=== PATIENT | female | born 1950 | race African-American/Black ===

== ENCOUNTER 2017-11-25 05:25 | Inpatient (IN) ==
[2017-11-25 06:38] LABS: Basophils % 0.5 % (0.0-0.8); Eosinophils # 0.2 10*3/uL (0.0-0.87); Eosinophils % 3.7 % (0.00-10.9); Hematocrit 31.4 VOL% (35.7-47.0); Immature Granulocytes % 0.4 %; Immature Granulocytes Absolute 0.02 #; Lymphocytes % 17.1 % (21.3-54.2); Mean Corpuscular HGB Conc 31.8 GM/DL (32-36); Mean Corpuscular Hemoglobin 30 PG (27-34); Mean Corpuscular Volume 93.2 FL (87-102); Mean Platelet Volume 10.4 FL (9.6-12.0); Monocytes # 0.6 10*3/uL (0.11-0.8); Monocytes % 10.9 % (1.7-12.7); Neutrophils # 3.8 10*3/uL (1.4-7.4); Neutrophils % 67.4 % (38.7-73.9); Platelet Count 167 T/CUMM (130-400); Red Blood Count 3.37 MC/CUMM (3.8-5.5); Red Cell Distribution Width 13.8 % (9.3-17.3); White Blood Count 5.6 T/CUMM (4-12)
[2017-11-25 06:46] LABS: Partial Thromboplastin Time 28.4 SECS (0-40)
[2017-11-25 07:16] LABS: Albumin 3.3 G/DL (3.4-5.0); Bilirubin,Total 0.4 MG/DL (0.2-1.0); Osmolality,Calculated 287.5 MOS/KG (273-304); Potassium 4.2 MMOL/L (3.5-5.1); Total Protein 7.4 G/DL (6.4-8.3)
[2017-11-25] MEDS ORDERED: LEVOFLOXACIN INJ 500 MG in PREMIX 1 EACH IV STA (07:41)
[2017-11-25] MEDS ORDERED: ALBUTEROL 2.5 MG/3 ML NEB RESP TX PRN (09:49)
[2017-11-25] MEDS ORDERED: ONDANSETRON 4 MG/2 ML VIAL IV PRN (09:49)
[2017-11-25] MEDS: ALBUTEROL/IPRATROPIUM 3 ML NEB RESP TX SCH ×4 (11:48→23:27)
[2017-11-25] MEDS: PANTOPRAZOLE 40 MG TABLET PO SCH (15:40)
[2017-11-25] MEDS: ACETAMINOPHEN 325 MG TABLET PO PRN (15:44)
[2017-11-25] MEDS ORDERED: PROMETHAZINE 25 MG TABLET PO PRN (16:25)
[2017-11-25] MEDS ORDERED: LOPERAMIDE 2 MG CAPSULE PO PRN (16:25)
[2017-11-25] MEDS: CINACALCET 30 MG TABLET PO SCH (18:19)
[2017-11-25] MEDS: CALCIUM ACETATE 667 MG CAPSULE PO SCH (18:19)
[2017-11-25] MEDS: GABAPENTIN 100 MG CAPSULE PO SCH (18:20)
[2017-11-25] MEDS: METOPROLOL TARTRATE 25 MG TABLET PO SCH (20:28)
[2017-11-25] MEDS: BRIMONIDINE 0.2% OPH SOLN 5 ML BOTTLE BOTH EYES SCH (20:29)
[2017-11-26] MEDS: ALBUTEROL/IPRATROPIUM 3 ML NEB RESP TX SCH ×5 (02:38→19:01)
[2017-11-26] MEDS: traMADol 50 MG TABLET PO PRN ×2 (05:17→14:31)
[2017-11-26] MEDS ORDERED: VIRT PO SCH (09:00)
[2017-11-26] MEDS ORDERED: NON-FORMULARY MEDICATION (Omeprazole [Omeprazole] 20 MG) PO SCH (09:00)
[2017-11-26] MEDS ORDERED: ERGOCALCIFEROL 50,000 UNIT CAPSULE PO SCH (09:00)
[2017-11-26] MEDS: CALCIUM ACETATE 667 MG CAPSULE PO SCH ×3 (11:08→17:05)
[2017-11-26] MEDS: CEFTAROLINE 200 MG in SODIUM CHLORIDE 0.9% 100 ML IV SCH ×2 (12:37→23:11)
[2017-11-26] MEDS: METOPROLOL TARTRATE 25 MG TABLET PO SCH ×2 (12:39→21:01)
[2017-11-26] MEDS: BRIMONIDINE 0.2% OPH SOLN 5 ML BOTTLE BOTH EYES SCH ×2 (12:41→21:01)
[2017-11-26] MEDS: PANTOPRAZOLE 40 MG TABLET PO SCH (12:42)
[2017-11-26] MEDS: GABAPENTIN 100 MG CAPSULE PO SCH ×2 (12:42→19:21)
[2017-11-26] MEDS: HYDROXYCHLOROQUINE 200 MG TABLET PO SCH (12:42)
[2017-11-26 14:31] LABS: Basophils % 0.6 % (0.0-0.8); Blood Urea Nitrogen 16 MG/DL (7-18); Eosinophils # 0.1 10*3/uL (0.0-0.87); Eosinophils % 2.1 % (0.00-10.9); Glucose 105 MG/DL (74-106); Hematocrit 27.6 VOL% (35.7-47.0); Hemoglobin 8.6 GM/DL (12.0-16.0); Immature Granulocytes % 0.4 %; Immature Granulocytes Absolute 0.02 #; Lymphocytes # 0.4 10*3/uL (1.4-4.0); Lymphocytes % 9.1 % (21.3-54.2); Mean Corpuscular HGB Conc 31.2 GM/DL (32-36); Mean Corpuscular Hemoglobin 31 PG (27-34); Mean Corpuscular Volume 97.9 FL (87-102); Mean Platelet Volume 10.5 FL (9.6-12.0); Monocytes # 0.4 10*3/uL (0.11-0.8); Monocytes % 9.1 % (1.7-12.7); Neutrophils # 3.7 10*3/uL (1.4-7.4); Neutrophils % 78.7 % (38.7-73.9); Osmolality,Calculated 288.7 MOS/KG (273-304); Platelet Count 127 T/CUMM (130-400); Red Blood Count 2.82 MC/CUMM (3.8-5.5); Red Cell Distribution Width 13.6 % (9.3-17.3); Sodium 145 MMOL/L (136-145); White Blood Count 4.7 T/CUMM (4-12)
[2017-11-26] MEDS ORDERED: GLUCAGON 1 MG VIAL IM PRN (14:49)
[2017-11-26] MEDS ORDERED: DEXTROSE 50% 25 GM/50 ML VIAL IV PRN (14:49)
[2017-11-26 14:50] LABS: Potassium 2.7 MMOL/L (3.5-5.1)
[2017-11-26 14:57] LABS: Calcium < 5.0 MG/DL (8.5-10.1)
[2017-11-26] MEDS: CINACALCET 30 MG TABLET PO SCH (17:05)
[2017-11-26] MEDS: INSULIN LISPRO 100 UNIT/ML SUBCUT SCH ×2 (17:06→21:01)
[2017-11-27] MEDS: ALBUTEROL/IPRATROPIUM 3 ML NEB RESP TX SCH ×7 (00:56→23:23)
[2017-11-27] MEDS: traMADol 50 MG TABLET PO PRN ×2 (05:18→13:36)
[2017-11-27] MEDS: INSULIN LISPRO 100 UNIT/ML SUBCUT SCH ×4 (08:12→20:38)
[2017-11-27 10:11] LABS: Basophils % 0.2 % (0.0-0.8); Eosinophils # 0.1 10*3/uL (0.0-0.87); Eosinophils % 2.7 % (0.00-10.9); Hematocrit 30.3 VOL% (35.7-47.0); Hemoglobin 9.5 GM/DL (12.0-16.0); Immature Granulocytes % 0.6 %; Immature Granulocytes Absolute 0.03 #; Lymphocytes # 0.6 10*3/uL (1.4-4.0); Lymphocytes % 12.3 % (21.3-54.2); Mean Corpuscular HGB Conc 31.4 GM/DL (32-36); Mean Corpuscular Hemoglobin 30 PG (27-34); Mean Platelet Volume 10.4 FL (9.6-12.0); Monocytes # 0.5 10*3/uL (0.11-0.8); Monocytes % 11.1 % (1.7-12.7); Neutrophils # 3.6 10*3/uL (1.4-7.4); Neutrophils % 73.1 % (38.7-73.9); Platelet Count 137 T/CUMM (130-400); Red Blood Count 3.19 MC/CUMM (3.8-5.5); Red Cell Distribution Width 13.7 % (9.3-17.3); White Blood Count 4.9 T/CUMM (4-12)
[2017-11-27 10:35] LABS: Calcium 7.7 MG/DL (8.5-10.1); Osmolality,Calculated 277.2 MOS/KG (273-304); Potassium 4.1 MMOL/L (3.5-5.1)
[2017-11-27] MEDS: CALCIUM ACETATE 667 MG CAPSULE PO SCH ×3 (12:02→17:04)
[2017-11-27] MEDS: BRIMONIDINE 0.2% OPH SOLN 5 ML BOTTLE BOTH EYES SCH ×2 (13:34→20:38)
[2017-11-27] MEDS: GABAPENTIN 100 MG CAPSULE PO SCH ×2 (13:35→18:27)
[2017-11-27] MEDS: METOPROLOL TARTRATE 25 MG TABLET PO SCH ×2 (13:35→20:38)
[2017-11-27] MEDS: PANTOPRAZOLE 40 MG TABLET PO SCH (13:35)
[2017-11-27] MEDS: HYDROXYCHLOROQUINE 200 MG TABLET PO SCH (13:35)
[2017-11-27] MEDS: LEVOFLOXACIN INJ 250 MG in PREMIX 1 EACH IV SCH (14:46)
[2017-11-27] MEDS: CEFTAROLINE 200 MG in SODIUM CHLORIDE 0.9% 100 ML IV SCH ×2 (15:34→23:42)
[2017-11-27] MEDS: CINACALCET 30 MG TABLET PO SCH (17:05)
[2017-11-28] MEDS: ALBUTEROL/IPRATROPIUM 3 ML NEB RESP TX SCH ×6 (03:05→23:22)
[2017-11-28 06:33] LABS: Basophils % 0.2 % (0.0-0.8); Eosinophils # 0.2 10*3/uL (0.0-0.87); Eosinophils % 3.3 % (0.00-10.9); Hematocrit 29.9 VOL% (35.7-47.0); Hemoglobin 9.6 GM/DL (12.0-16.0); Immature Granulocytes % 0.4 %; Immature Granulocytes Absolute 0.02 #; Lymphocytes # 0.7 10*3/uL (1.4-4.0); Lymphocytes % 15.9 % (21.3-54.2); Mean Corpuscular HGB Conc 32.1 GM/DL (32-36); Mean Corpuscular Hemoglobin 30 PG (27-34); Mean Corpuscular Volume 93.1 FL (87-102); Mean Platelet Volume 10.6 FL (9.6-12.0); Monocytes # 0.8 10*3/uL (0.11-0.8); Monocytes % 16.3 % (1.7-12.7); Neutrophils # 2.9 10*3/uL (1.4-7.4); Neutrophils % 63.9 % (38.7-73.9); Platelet Count 134 T/CUMM (130-400); Red Blood Count 3.21 MC/CUMM (3.8-5.5); Red Cell Distribution Width 13.7 % (9.3-17.3); White Blood Count 4.6 T/CUMM (4-12)
[2017-11-28 07:00] LABS: Calcium 7.8 MG/DL (8.5-10.1); Eosinophils 7 % (0-10); Giant Platelets Few; Hypochromasia 2+; Lymphocytes 11 % (20-55); Osmolality,Calculated 276.1 MOS/KG (273-304); Ovalocytes Slight; Platelet Estimate Normal; Potassium 4.7 MMOL/L (3.5-5.1); Segmented Neutrophils 68 % (50-85); Total Cells Counted 100
[2017-11-28] MEDS: INSULIN LISPRO 100 UNIT/ML SUBCUT SCH ×4 (07:18→20:50)
[2017-11-28] MEDS: CALCIUM ACETATE 667 MG CAPSULE PO SCH ×3 (08:18→16:32)
[2017-11-28] MEDS: BRIMONIDINE 0.2% OPH SOLN 5 ML BOTTLE BOTH EYES SCH ×2 (08:18→20:53)
[2017-11-28] MEDS: LEVOFLOXACIN INJ 250 MG in PREMIX 1 EACH IV SCH (08:18)
[2017-11-28] MEDS: GABAPENTIN 100 MG CAPSULE PO SCH ×2 (08:18→18:05)
[2017-11-28] MEDS: PANTOPRAZOLE 40 MG TABLET PO SCH (08:18)
[2017-11-28] MEDS: METOPROLOL TARTRATE 25 MG TABLET PO SCH ×2 (08:18→20:49)
[2017-11-28] MEDS: HYDROXYCHLOROQUINE 200 MG TABLET PO SCH (08:18)
[2017-11-28] MEDS: traMADol 50 MG TABLET PO PRN (11:43)
[2017-11-28] MEDS: CEFTAROLINE 200 MG in SODIUM CHLORIDE 0.9% 100 ML IV SCH ×2 (12:44→23:36)
[2017-11-28] MEDS ORDERED: IBUPROFEN 400 MG TABLET PO PRN (15:15)
[2017-11-28] MEDS: CINACALCET 30 MG TABLET PO SCH (16:32)
[2017-11-29] MEDS: ALBUTEROL/IPRATROPIUM 3 ML NEB RESP TX SCH ×6 (03:54→23:12)
[2017-11-29 08:12] LABS: Basophils % 0.4 % (0.0-0.8); Eosinophils # 0.2 10*3/uL (0.0-0.87); Eosinophils % 3.9 % (0.00-10.9); Hemoglobin 9.3 GM/DL (12.0-16.0); Immature Granulocytes % 0.2 %; Immature Granulocytes Absolute 0.01 #; Lymphocytes # 0.6 10*3/uL (1.4-4.0); Lymphocytes % 12.5 % (21.3-54.2); Mean Corpuscular HGB Conc 32.1 GM/DL (32-36); Mean Corpuscular Hemoglobin 30 PG (27-34); Mean Corpuscular Volume 92.7 FL (87-102); Mean Platelet Volume 10.3 FL (9.6-12.0); Monocytes # 0.4 10*3/uL (0.11-0.8); Monocytes % 9.3 % (1.7-12.7); Neutrophils # 3.4 10*3/uL (1.4-7.4); Neutrophils % 73.7 % (38.7-73.9); Platelet Count 141 T/CUMM (130-400); Red Blood Count 3.13 MC/CUMM (3.8-5.5); Red Cell Distribution Width 13.3 % (9.3-17.3); White Blood Count 4.6 T/CUMM (4-12)
[2017-11-29 08:48] LABS: Calcium 8.2 MG/DL (8.5-10.1); Potassium 4.7 MMOL/L (3.5-5.1)
[2017-11-29] MEDS: INSULIN LISPRO 100 UNIT/ML SUBCUT SCH ×4 (12:27→23:21)
[2017-11-29] MEDS: CALCIUM ACETATE 667 MG CAPSULE PO SCH ×3 (12:28→18:02)
[2017-11-29] MEDS: BRIMONIDINE 0.2% OPH SOLN 5 ML BOTTLE BOTH EYES SCH ×2 (12:40→20:46)
[2017-11-29] MEDS: PANTOPRAZOLE 40 MG TABLET PO SCH (12:41)
[2017-11-29] MEDS: HYDROXYCHLOROQUINE 200 MG TABLET PO SCH (12:41)
[2017-11-29] MEDS: METOPROLOL TARTRATE 25 MG TABLET PO SCH ×2 (12:41→20:46)
[2017-11-29] MEDS: GABAPENTIN 100 MG CAPSULE PO SCH ×2 (12:42→18:01)
[2017-11-29] MEDS: traMADol 50 MG TABLET PO PRN ×2 (12:42→20:45)
[2017-11-29] MEDS: LEVOFLOXACIN INJ 250 MG in PREMIX 1 EACH IV SCH (12:43)
[2017-11-29] MEDS: CEFTAROLINE 200 MG in SODIUM CHLORIDE 0.9% 100 ML IV SCH ×2 (14:04→23:21)
[2017-11-29] MEDS: CINACALCET 30 MG TABLET PO SCH (18:01)
[2017-11-29] MEDS: ACETAMINOPHEN 325 MG TABLET PO PRN (18:02)
[2017-11-30] MEDS: ALBUTEROL/IPRATROPIUM 3 ML NEB RESP TX SCH ×2 (03:29→09:21)
[2017-11-30 04:14] LABS: Basophils % 0.4 % (0.0-0.8); Eosinophils # 0.3 10*3/uL (0.0-0.87); Hemoglobin 9.6 GM/DL (12.0-16.0); Immature Granulocytes % 0.4 %; Immature Granulocytes Absolute 0.02 #; Lymphocytes # 0.8 10*3/uL (1.4-4.0); Lymphocytes % 14.7 % (21.3-54.2); Mean Corpuscular Hemoglobin 30 PG (27-34); Mean Corpuscular Volume 93.5 FL (87-102); Mean Platelet Volume 11.2 FL (9.6-12.0); Monocytes # 0.8 10*3/uL (0.11-0.8); Monocytes % 14.7 % (1.7-12.7); Neutrophils # 3.4 10*3/uL (1.4-7.4); Neutrophils % 64.8 % (38.7-73.9); Platelet Count 147 T/CUMM (130-400); Red Blood Count 3.21 MC/CUMM (3.8-5.5); Red Cell Distribution Width 13.4 % (9.3-17.3); White Blood Count 5.2 T/CUMM (4-12)
[2017-11-30 04:31] LABS: Calcium 8.1 MG/DL (8.5-10.1); Osmolality,Calculated 284.8 MOS/KG (273-304); Potassium 5.2 MMOL/L (3.5-5.1)
[2017-11-30] MEDS: INSULIN LISPRO 100 UNIT/ML SUBCUT SCH ×2 (07:56→12:49)
[2017-11-30] MEDS ORDERED: SODIUM POLYSTYRENE SULFATE 15 GM/60 ML BOTTLE PO STA (09:09)
[2017-11-30] MEDS ORDERED: SODIUM POLYSTYRENE SULFATE 15 GM/60 ML BOTTLE PO ONE (09:10)
[2017-11-30] MEDS: BRIMONIDINE 0.2% OPH SOLN 5 ML BOTTLE BOTH EYES SCH (09:11)
[2017-11-30] MEDS: PANTOPRAZOLE 40 MG TABLET PO SCH (09:11)
[2017-11-30] MEDS: CALCIUM ACETATE 667 MG CAPSULE PO SCH ×2 (09:11→13:56)
[2017-11-30] MEDS: HYDROXYCHLOROQUINE 200 MG TABLET PO SCH (09:12)
[2017-11-30] MEDS: GABAPENTIN 100 MG CAPSULE PO SCH (09:12)
[2017-11-30] MEDS: METOPROLOL TARTRATE 25 MG TABLET PO SCH (09:16)
[2017-11-30] MEDS ORDERED: MINOCYCLINE 100 MG CAPSULE PO SCH (09:30)
[2017-11-30 11:50] VITALS: BP 103/48
[2017-11-30] MEDS: LEVOFLOXACIN INJ 250 MG in PREMIX 1 EACH IV SCH (12:48)
[2017-11-30] MEDS: traMADol 50 MG TABLET PO PRN (14:00)
== END 2017-11-30 14:59 | disposition home or self-care (01) | DRG 193 ==
LOC: N.ED 05:25 → N.EDINP 07:59 → SUATTDRO 07:59 → N.EDINP 09:25 → N.3E 09:52
PROVIDERS: ADMIT Family Medicine; ATTEND Internal Medicine Infectious Disease

== ENCOUNTER 2017-12-15 18:04 | Inpatient (IN) ==
[2017-12-15] MEDS ORDERED: ASPIRIN 325 MG TABLET PO STA (18:32)
[2017-12-15] MEDS ORDERED: NITROGLYCERIN 2% OINT 1 INCH/GM PACK TOP STA (18:32)
[2017-12-15] MEDS ORDERED: NITROGLYCERIN 2% OINT 1 INCH/GM PACK TOP ONE (19:41)
[2017-12-15] MEDS ORDERED: ASPIRIN 325 MG TABLET ONE (19:41)
[2017-12-15 20:46] LABS: Basophils % 0.3 % (0.0-0.8); Eosinophils # 0.2 10*3/uL (0.0-0.87); Hematocrit 27.2 VOL% (35.7-47.0); Hemoglobin 8.8 GM/DL (12.0-16.0); Immature Granulocytes % 0.6 %; Immature Granulocytes Absolute 0.02 #; Lymphocytes % 28.5 % (21.3-54.2); Mean Corpuscular HGB Conc 32.4 GM/DL (32-36); Mean Corpuscular Hemoglobin 30 PG (27-34); Mean Corpuscular Volume 93.2 FL (87-102); Mean Platelet Volume 11.2 FL (9.6-12.0); Monocytes # 0.6 10*3/uL (0.11-0.8); Monocytes % 16.8 % (1.7-12.7); Neutrophils # 1.8 10*3/uL (1.4-7.4); Neutrophils % 48.8 % (38.7-73.9); Platelet Count 124 T/CUMM (130-400); Red Blood Count 2.92 MC/CUMM (3.8-5.5); Red Cell Distribution Width 13.5 % (9.3-17.3); White Blood Count 3.6 T/CUMM (4-12)
[2017-12-15 20:51] LABS: INR 1.1; PT Patient Result 11.4 SECS
[2017-12-15 21:02] LABS: Calcium 8.1 MG/DL (8.5-10.1); Magnesium 2.2 MG/DL (1.8-2.4); Potassium 3.9 MMOL/L (3.5-5.1)
[2017-12-15 21:07] LABS: Apearance,Urine Slightly Hazy (Clear); Bacteria,Urine Occasional /HPF (Few); Bilirubin,Urine Negative (Negative); Blood, Urine Negative (Negative); Glucose,Urine (UA) Negative (Negative); Ketones,Urine Negative (Negative); Nitrite,Urine Negative (Negative); Protein,Urine 100 MG/DL; RBC,Urine 2 /HPF (0-4); Squamous Epithelial Cell,Urine Occasional /HPF (0-10); Urine Color Amber (Yellow); Urine Specific Gravity 1.016 (1.001-1.035); Urine Urobilinogen < 2.0 EU/DL (0.2-1.0); WBC,Urine 4 /HPF (0-6)
[2017-12-15 21:09] LABS: Troponin I Only 0.775 NG/ML (0.00-0.045)
[2017-12-15 21:50] LABS: Band Neutrophils 2 % (0-10); Eosinophils 3 % (0-10); Lymphocytes 29 % (20-55); Platelet Estimate Normal; Segmented Neutrophils 56 % (50-85); Total Cells Counted 100
[2017-12-15] MEDS ORDERED: cloNIDine 0.1 MG TABLET ONE (22:35)
[2017-12-15] MEDS ORDERED: cloNIDine 0.1 MG TABLET PO STA (22:37)
[2017-12-16] MEDS ORDERED: DEXTROSE 50% 25 GM/50 ML VIAL IV PRN (02:21)
[2017-12-16] MEDS ORDERED: GLUCAGON 1 MG VIAL IM PRN (02:21)
[2017-12-16] MEDS ORDERED: NITROGLYCERIN SL 0.4 MG TABLET SL PRN (02:21)
[2017-12-16] MEDS ORDERED: ALBUTEROL/IPRATROPIUM 3 ML NEB RESP TX PRN (02:21)
[2017-12-16] MEDS ORDERED: VANCOMYCIN INJ 500 MG in SODIUM CHLORIDE 0.9% 100 ML IV PRN (02:44)
[2017-12-16] MEDS ORDERED: VANCOMYCIN INJ 2,000 MG in SODIUM CHLORIDE 0.9% 500 ML IV ONE ×2 (03:00→08:00)
[2017-12-16] MEDS: ENOXAPARIN 30 MG/0.3 ML SYRINGE SUBCUT SCH (03:33)
[2017-12-16] MEDS: ALBUTEROL/IPRATROPIUM 3 ML NEB RESP TX SCH ×4 (03:38→20:26)
[2017-12-16] MEDS: LEVOFLOXACIN INJ 500 MG in PREMIX 1 EACH IV SCH (03:39)
[2017-12-16] MEDS: METOPROLOL TARTRATE 25 MG TABLET PO SCH ×3 (05:22→21:35)
[2017-12-16] MEDS ORDERED: OSELTAMIVIR 30 MG CAPSULE PO SCH (09:00)
[2017-12-16] MEDS: GABAPENTIN 100 MG CAPSULE PO SCH ×2 (09:48→21:35)
[2017-12-16] MEDS: HYDROXYCHLOROQUINE 200 MG TABLET PO SCH (09:48)
[2017-12-16] MEDS: DOCUSATE SODIUM 100 MG CAPSULE PO SCH ×2 (09:48→21:35)
[2017-12-16] MEDS: guaiFENesin/DM ER 600-30 MG TABLET PO PRN (09:48)
[2017-12-16] MEDS: CLOPIDOGREL 75 MG TABLET PO SCH (09:48)
[2017-12-16] MEDS: ASPIRIN EC 81 MG TABLET PO SCH (09:48)
[2017-12-16] MEDS: PANTOPRAZOLE 40 MG TABLET PO SCH (09:54)
[2017-12-16] MEDS: CALCIUM ACETATE 667 MG CAPSULE PO SCH ×3 (09:54→16:50)
[2017-12-16] MEDS: BRIMONIDINE 0.2% OPH SOLN 5 ML BOTTLE BOTH EYES SCH (09:55)
[2017-12-16] MEDS: INSULIN REGULAR 100 UNIT/ML SUBCUT SCH ×4 (11:46→21:36)
[2017-12-16] MEDS: cloNIDine 0.1 MG TABLET PO PRN ×2 (15:20→16:50)
[2017-12-17] MEDS: ALBUTEROL/IPRATROPIUM 3 ML NEB RESP TX SCH ×4 (00:47→21:15)
[2017-12-17] MEDS: BRIMONIDINE 0.2% OPH SOLN 5 ML BOTTLE BOTH EYES SCH ×3 (03:27→20:56)
[2017-12-17 06:33] LABS: Basophils % 0.4 % (0.0-0.8); Eosinophils # 0.1 10*3/uL (0.0-0.87); Eosinophils % 4.1 % (0.00-10.9); Hemoglobin 8.4 GM/DL (12.0-16.0); Immature Granulocytes % 0.4 %; Immature Granulocytes Absolute 0.01 #; Lymphocytes # 0.6 10*3/uL (1.4-4.0); Lymphocytes % 20.5 % (21.3-54.2); Mean Corpuscular HGB Conc 32.3 GM/DL (32-36); Mean Corpuscular Hemoglobin 29 PG (27-34); Mean Corpuscular Volume 90.3 FL (87-102); Mean Platelet Volume 11.6 FL (9.6-12.0); Monocytes # 0.4 10*3/uL (0.11-0.8); Monocytes % 15.7 % (1.7-12.7); Neutrophils # 1.6 10*3/uL (1.4-7.4); Neutrophils % 58.9 % (38.7-73.9); Platelet Count 96 T/CUMM (130-400); Red Blood Count 2.88 MC/CUMM (3.8-5.5); Red Cell Distribution Width 13.7 % (9.3-17.3); White Blood Count 2.7 T/CUMM (4-12)
[2017-12-17 07:08] LABS: Giant Platelets Few; Hypochromasia 1+; Lymphocytes 17 % (20-55); Ovalocytes Slight; Platelet Estimate Decreased; Segmented Neutrophils 69 % (50-85); Total Cells Counted 100
[2017-12-17 07:21] LABS: Albumin 2.8 G/DL (3.4-5.0); Bilirubin,Total 0.6 MG/DL (0.2-1.0); Calcium 8.2 MG/DL (8.5-10.1); Potassium 4.2 MMOL/L (3.5-5.1); Total Protein 6.8 G/DL (6.4-8.3)
[2017-12-17] MEDS: INSULIN REGULAR 100 UNIT/ML SUBCUT SCH ×4 (09:28→21:03)
[2017-12-17] MEDS: CALCIUM ACETATE 667 MG CAPSULE PO SCH ×3 (09:36→17:33)
[2017-12-17] MEDS: CLOPIDOGREL 75 MG TABLET PO SCH (09:36)
[2017-12-17] MEDS: HYDROXYCHLOROQUINE 200 MG TABLET PO SCH (09:36)
[2017-12-17] MEDS: ASPIRIN EC 81 MG TABLET PO SCH (09:36)
[2017-12-17] MEDS: PANTOPRAZOLE 40 MG TABLET PO SCH (09:37)
[2017-12-17] MEDS: DOCUSATE SODIUM 100 MG CAPSULE PO SCH ×2 (09:37→20:56)
[2017-12-17] MEDS: ENOXAPARIN 30 MG/0.3 ML SYRINGE SUBCUT SCH (09:37)
[2017-12-17] MEDS: METOPROLOL TARTRATE 25 MG TABLET PO SCH ×2 (09:37→20:57)
[2017-12-17] MEDS: GABAPENTIN 100 MG CAPSULE PO SCH ×2 (09:49→20:56)
[2017-12-17] MEDS ORDERED: ALUM/MAG/SIMETH/LIDO VISC 1:1 30 ML BOTTLE PO ONE (21:00)
[2017-12-17] MEDS: ONDANSETRON 4 MG/2 ML VIAL IV PRN (21:37)
[2017-12-18] MEDS: ALBUTEROL/IPRATROPIUM 3 ML NEB RESP TX SCH ×3 (01:30→19:25)
[2017-12-18] MEDS: LEVOFLOXACIN INJ 500 MG in PREMIX 1 EACH IV SCH (02:09)
[2017-12-18] MEDS: BRIMONIDINE 0.2% OPH SOLN 5 ML BOTTLE BOTH EYES SCH ×2 (08:39→21:51)
[2017-12-18] MEDS: HYDROXYCHLOROQUINE 200 MG TABLET PO SCH (08:40)
[2017-12-18] MEDS: CALCIUM ACETATE 667 MG CAPSULE PO SCH ×3 (08:40→17:26)
[2017-12-18] MEDS: CLOPIDOGREL 75 MG TABLET PO SCH (08:41)
[2017-12-18] MEDS: PANTOPRAZOLE 40 MG TABLET PO SCH (08:41)
[2017-12-18] MEDS: GABAPENTIN 100 MG CAPSULE PO SCH ×2 (08:41→21:50)
[2017-12-18] MEDS: ASPIRIN EC 81 MG TABLET PO SCH (08:41)
[2017-12-18] MEDS: DOCUSATE SODIUM 100 MG CAPSULE PO SCH ×2 (08:43→21:54)
[2017-12-18] MEDS: INSULIN REGULAR 100 UNIT/ML SUBCUT SCH ×4 (08:43→21:54)
[2017-12-18] MEDS: ENOXAPARIN 30 MG/0.3 ML SYRINGE SUBCUT SCH (08:44)
[2017-12-18] MEDS: METOPROLOL TARTRATE 25 MG TABLET PO SCH ×3 (08:44→21:50)
[2017-12-18 09:23] LABS: Basophils % 0.3 % (0.0-0.8); Eosinophils # 0.1 10*3/uL (0.0-0.87); Eosinophils % 3.4 % (0.00-10.9); Hematocrit 24.4 VOL% (35.7-47.0); Hemoglobin 7.7 GM/DL (12.0-16.0); Immature Granulocytes % 0.3 %; Immature Granulocytes Absolute 0.01 #; Lymphocytes # 0.6 10*3/uL (1.4-4.0); Lymphocytes % 14.6 % (21.3-54.2); Mean Corpuscular HGB Conc 31.6 GM/DL (32-36); Mean Corpuscular Hemoglobin 30 PG (27-34); Mean Corpuscular Volume 93.8 FL (87-102); Mean Platelet Volume 11.1 FL (9.6-12.0); Monocytes # 0.5 10*3/uL (0.11-0.8); Monocytes % 12.3 % (1.7-12.7); Neutrophils # 2.7 10*3/uL (1.4-7.4); Neutrophils % 69.1 % (38.7-73.9); Red Cell Distribution Width 13.8 % (9.3-17.3); White Blood Count 3.8 T/CUMM (4-12)
[2017-12-18 09:25] LABS: Platelet Count 91 T/CUMM (130-400)
[2017-12-18 09:41] LABS: Hypochromasia 1+; Microcytosis 1+; Ovalocytes Slight; Platelet Estimate Decreased
[2017-12-18 10:07] LABS: Calcium 7.8 MG/DL (8.5-10.1); Magnesium 1.8 MG/DL (1.8-2.4); Osmolality,Calculated 280.2 MOS/KG (273-304); Potassium 4.7 MMOL/L (3.5-5.1)
[2017-12-18 11:13] LABS: Hepatitis B Surface Ag Quant < 0.10 Index; Hepatitis B Surface Ag Result Negative (Negative)
[2017-12-18] MEDS: FLUTICASONE 50 MCG NASAL SPRAY 16 GM BOTTLE BOTH NARES SCH ×2 (17:26→21:50)
[2017-12-18] MEDS: LORATADINE 10 MG TABLET PO SCH (17:26)
[2017-12-18] MEDS ORDERED: VANCOMYCIN INJ 500 MG in SODIUM CHLORIDE 0.9% 100 ML IV ONE (18:00)
[2017-12-18] MEDS: MORPHINE 2 MG/1 ML SYRINGE IV PRN (20:21)
[2017-12-19] MEDS: ALBUTEROL/IPRATROPIUM 3 ML NEB RESP TX SCH ×6 (00:22→20:09)
[2017-12-19] MEDS: guaiFENesin/DM ER 600-30 MG TABLET PO PRN ×3 (04:49→21:00)
[2017-12-19] MEDS: INSULIN REGULAR 100 UNIT/ML SUBCUT SCH ×4 (09:08→21:01)
[2017-12-19] MEDS: FLUTICASONE 50 MCG NASAL SPRAY 16 GM BOTTLE BOTH NARES SCH ×2 (09:38→21:00)
[2017-12-19] MEDS: CALCIUM ACETATE 667 MG CAPSULE PO SCH ×3 (09:38→16:26)
[2017-12-19] MEDS: METOPROLOL TARTRATE 25 MG TABLET PO SCH ×2 (09:39→21:00)
[2017-12-19] MEDS: PANTOPRAZOLE 40 MG TABLET PO SCH (09:39)
[2017-12-19] MEDS: LORATADINE 10 MG TABLET PO SCH (09:39)
[2017-12-19] MEDS: GABAPENTIN 100 MG CAPSULE PO SCH ×2 (09:39→21:00)
[2017-12-19] MEDS: CLOPIDOGREL 75 MG TABLET PO SCH (09:39)
[2017-12-19] MEDS: ASPIRIN EC 81 MG TABLET PO SCH (09:39)
[2017-12-19] MEDS: BRIMONIDINE 0.2% OPH SOLN 5 ML BOTTLE BOTH EYES SCH ×2 (09:39→21:00)
[2017-12-19] MEDS: DOCUSATE SODIUM 100 MG CAPSULE PO SCH ×2 (09:39→21:00)
[2017-12-19] MEDS: HYDROXYCHLOROQUINE 200 MG TABLET PO SCH (09:39)
[2017-12-19] MEDS: ENOXAPARIN 30 MG/0.3 ML SYRINGE SUBCUT SCH (09:40)
[2017-12-19 12:00] LABS: Basophils % 0.2 % (0.0-0.8); Eosinophils # 0.2 10*3/uL (0.0-0.87); Hematocrit 26.7 VOL% (35.7-47.0); Hemoglobin 8.3 GM/DL (12.0-16.0); Immature Granulocytes % 0.5 %; Immature Granulocytes Absolute 0.02 #; Lymphocytes # 0.5 10*3/uL (1.4-4.0); Lymphocytes % 12.5 % (21.3-54.2); Mean Corpuscular HGB Conc 31.1 GM/DL (32-36); Mean Corpuscular Hemoglobin 29 PG (27-34); Mean Corpuscular Volume 93.4 FL (87-102); Mean Platelet Volume 11.4 FL (9.6-12.0); Monocytes # 0.6 10*3/uL (0.11-0.8); Monocytes % 13.2 % (1.7-12.7); Neutrophils # 2.9 10*3/uL (1.4-7.4); Neutrophils % 68.6 % (38.7-73.9); Platelet Count 107 T/CUMM (130-400); Red Blood Count 2.86 MC/CUMM (3.8-5.5); Red Cell Distribution Width 13.8 % (9.3-17.3); White Blood Count 4.2 T/CUMM (4-12)
[2017-12-20] MEDS ORDERED: ALUM/MAG/SIMETH/LIDO VISC 1:1 30 ML BOTTLE PO ONE (00:11)
[2017-12-20] MEDS ORDERED: hydrALAZINE 20 MG/1 ML VIAL IV PRN (00:12)
[2017-12-20] MEDS: ALBUTEROL/IPRATROPIUM 3 ML NEB RESP TX SCH ×5 (00:26→16:07)
[2017-12-20] MEDS: MORPHINE 2 MG/1 ML SYRINGE IV PRN (02:11)
[2017-12-20 08:55] LABS: Basophils % 0.2 % (0.0-0.8); Eosinophils # 0.2 10*3/uL (0.0-0.87); Eosinophils % 3.2 % (0.00-10.9); Hematocrit 25.7 VOL% (35.7-47.0); Hemoglobin 8.4 GM/DL (12.0-16.0); Immature Granulocytes % 0.6 %; Immature Granulocytes Absolute 0.03 #; Lymphocytes # 0.7 10*3/uL (1.4-4.0); Lymphocytes % 13.3 % (21.3-54.2); Mean Corpuscular HGB Conc 32.7 GM/DL (32-36); Mean Corpuscular Hemoglobin 29 PG (27-34); Mean Corpuscular Volume 89.9 FL (87-102); Mean Platelet Volume 11.2 FL (9.6-12.0); Monocytes # 0.6 10*3/uL (0.11-0.8); Monocytes % 11.7 % (1.7-12.7); Neutrophils # 3.8 10*3/uL (1.4-7.4); Platelet Count 120 T/CUMM (130-400); Red Blood Count 2.86 MC/CUMM (3.8-5.5); Red Cell Distribution Width 13.6 % (9.3-17.3); White Blood Count 5.3 T/CUMM (4-12)
[2017-12-20] MEDS: DOCUSATE SODIUM 100 MG CAPSULE PO SCH ×2 (09:28→21:08)
[2017-12-20] MEDS: HYDROXYCHLOROQUINE 200 MG TABLET PO SCH (09:28)
[2017-12-20] MEDS: PANTOPRAZOLE 40 MG TABLET PO SCH (09:29)
[2017-12-20] MEDS: GABAPENTIN 100 MG CAPSULE PO SCH ×2 (09:29→21:10)
[2017-12-20] MEDS: CLOPIDOGREL 75 MG TABLET PO SCH (09:29)
[2017-12-20] MEDS: LORATADINE 10 MG TABLET PO SCH (09:29)
[2017-12-20] MEDS: ASPIRIN EC 81 MG TABLET PO SCH (09:29)
[2017-12-20] MEDS: INSULIN REGULAR 100 UNIT/ML SUBCUT SCH ×4 (09:30→21:11)
[2017-12-20 09:31] LABS: Calcium 8.2 MG/DL (8.5-10.1); Osmolality,Calculated 275.1 MOS/KG (273-304); Potassium 4.2 MMOL/L (3.5-5.1)
[2017-12-20] MEDS: cloNIDine 0.1 MG TABLET PO PRN (10:30)
[2017-12-20] MEDS: ONDANSETRON 4 MG/2 ML VIAL IV PRN (10:30)
[2017-12-20] MEDS: METOPROLOL TARTRATE 25 MG TABLET PO SCH ×2 (10:30→21:10)
[2017-12-20] MEDS: BRIMONIDINE 0.2% OPH SOLN 5 ML BOTTLE BOTH EYES SCH ×2 (10:39→21:11)
[2017-12-20] MEDS: CALCIUM ACETATE 667 MG CAPSULE PO SCH ×3 (10:39→16:43)
[2017-12-20] MEDS: FLUTICASONE 50 MCG NASAL SPRAY 16 GM BOTTLE BOTH NARES SCH ×3 (10:39→21:11)
[2017-12-20] MEDS: ENOXAPARIN 30 MG/0.3 ML SYRINGE SUBCUT SCH (10:39)
[2017-12-20] MEDS: LEVOFLOXACIN INJ 500 MG in PREMIX 1 EACH IV SCH (11:58)
[2017-12-20] MEDS: LEVOFLOXACIN 750 MG TABLET PO SCH (13:00)
[2017-12-20] MEDS: guaiFENesin/DM ER 600-30 MG TABLET PO PRN ×2 (13:00→21:09)
[2017-12-20] MEDS: traMADol 50 MG TABLET PO PRN (13:04)
[2017-12-20] MEDS: CINACALCET 30 MG TABLET PO SCH (16:43)
[2017-12-21] MEDS: ALBUTEROL/IPRATROPIUM 3 ML NEB RESP TX SCH ×4 (07:04→23:33)
[2017-12-21] MEDS: INSULIN REGULAR 100 UNIT/ML SUBCUT SCH ×4 (07:38→20:11)
[2017-12-21] MEDS: FLUTICASONE 50 MCG NASAL SPRAY 16 GM BOTTLE BOTH NARES SCH ×2 (08:53→21:52)
[2017-12-21] MEDS: CALCIUM ACETATE 667 MG CAPSULE PO SCH ×3 (08:53→16:35)
[2017-12-21] MEDS: ASPIRIN EC 81 MG TABLET PO SCH (08:53)
[2017-12-21] MEDS: BRIMONIDINE 0.2% OPH SOLN 5 ML BOTTLE BOTH EYES SCH ×2 (08:53→21:52)
[2017-12-21] MEDS: CLOPIDOGREL 75 MG TABLET PO SCH (08:53)
[2017-12-21] MEDS: METOPROLOL TARTRATE 25 MG TABLET PO SCH ×2 (08:53→21:53)
[2017-12-21] MEDS: LORATADINE 10 MG TABLET PO SCH (08:53)
[2017-12-21] MEDS: ENOXAPARIN 30 MG/0.3 ML SYRINGE SUBCUT SCH (08:54)
[2017-12-21] MEDS: PANTOPRAZOLE 40 MG TABLET PO SCH (08:54)
[2017-12-21] MEDS: DOCUSATE SODIUM 100 MG CAPSULE PO SCH ×2 (08:54→21:53)
[2017-12-21] MEDS: HYDROXYCHLOROQUINE 200 MG TABLET PO SCH (08:54)
[2017-12-21] MEDS: GABAPENTIN 100 MG CAPSULE PO SCH ×2 (08:54→21:53)
[2017-12-21] MEDS: guaiFENesin/DM ER 600-30 MG TABLET PO PRN ×2 (08:54→21:53)
[2017-12-21] MEDS: ONDANSETRON 4 MG/2 ML VIAL IV PRN (12:39)
[2017-12-21] MEDS: CINACALCET 30 MG TABLET PO SCH (16:35)
[2017-12-22] MEDS: traMADol 50 MG TABLET PO PRN ×2 (01:37→09:03)
[2017-12-22 06:08] LABS: Basophils % 0.2 % (0.0-0.8); Eosinophils # 0.2 10*3/uL (0.0-0.87); Hematocrit 25.5 VOL% (35.7-47.0); Hemoglobin 8.2 GM/DL (12.0-16.0); Immature Granulocytes % 0.5 %; Immature Granulocytes Absolute 0.02 #; Lymphocytes # 0.7 10*3/uL (1.4-4.0); Lymphocytes % 16.7 % (21.3-54.2); Mean Corpuscular HGB Conc 32.2 GM/DL (32-36); Mean Corpuscular Hemoglobin 30 PG (27-34); Mean Corpuscular Volume 91.7 FL (87-102); Mean Platelet Volume 11.3 FL (9.6-12.0); Monocytes # 0.7 10*3/uL (0.11-0.8); Neutrophils # 2.7 10*3/uL (1.4-7.4); Neutrophils % 62.6 % (38.7-73.9); Platelet Count 138 T/CUMM (130-400); Red Blood Count 2.78 MC/CUMM (3.8-5.5); Red Cell Distribution Width 13.5 % (9.3-17.3); White Blood Count 4.3 T/CUMM (4-12)
[2017-12-22 06:29] LABS: Calcium 7.9 MG/DL (8.5-10.1); Magnesium 1.8 MG/DL (1.8-2.4); Osmolality,Calculated 277.5 MOS/KG (273-304); Potassium 5.4 MMOL/L (3.5-5.1)
[2017-12-22 06:35] LABS: Hypochromasia 2+; Lymphocytes 26 % (20-55); Microcytosis 2+; Platelet Estimate Decreased; Segmented Neutrophils 67 % (50-85); Total Cells Counted 100
[2017-12-22] MEDS: ALBUTEROL/IPRATROPIUM 3 ML NEB RESP TX SCH ×3 (07:32→23:10)
[2017-12-22] MEDS: INSULIN REGULAR 100 UNIT/ML SUBCUT SCH ×4 (09:00→20:35)
[2017-12-22] MEDS: guaiFENesin/DM ER 600-30 MG TABLET PO PRN ×2 (09:03→20:32)
[2017-12-22] MEDS: PANTOPRAZOLE 40 MG TABLET PO SCH (09:06)
[2017-12-22] MEDS: CLOPIDOGREL 75 MG TABLET PO SCH (09:06)
[2017-12-22] MEDS: LORATADINE 10 MG TABLET PO SCH (09:07)
[2017-12-22] MEDS: LEVOFLOXACIN 750 MG TABLET PO SCH (09:07)
[2017-12-22] MEDS: GABAPENTIN 100 MG CAPSULE PO SCH ×2 (09:07→20:32)
[2017-12-22] MEDS: HYDROXYCHLOROQUINE 200 MG TABLET PO SCH (09:08)
[2017-12-22] MEDS: METOPROLOL TARTRATE 25 MG TABLET PO SCH ×2 (09:08→20:32)
[2017-12-22] MEDS: DOCUSATE SODIUM 100 MG CAPSULE PO SCH ×2 (09:09→20:32)
[2017-12-22] MEDS: CALCIUM ACETATE 667 MG CAPSULE PO SCH ×3 (09:09→16:52)
[2017-12-22] MEDS: BRIMONIDINE 0.2% OPH SOLN 5 ML BOTTLE BOTH EYES SCH ×2 (09:10→20:33)
[2017-12-22] MEDS: ASPIRIN EC 81 MG TABLET PO SCH (09:10)
[2017-12-22] MEDS: ENOXAPARIN 30 MG/0.3 ML SYRINGE SUBCUT SCH (09:10)
[2017-12-22] MEDS: FLUTICASONE 50 MCG NASAL SPRAY 16 GM BOTTLE BOTH NARES SCH ×2 (09:11→20:33)
[2017-12-22] MEDS ORDERED: ACETAMINOPHEN 325 MG TABLET PO PRN (09:55)
[2017-12-22] MEDS: ONDANSETRON 4 MG/2 ML VIAL IV PRN (14:03)
[2017-12-22] MEDS: cloNIDine 0.1 MG TABLET PO PRN (16:22)
[2017-12-22] MEDS: CINACALCET 30 MG TABLET PO SCH (16:52)
[2017-12-23] MEDS: traMADol 50 MG TABLET PO PRN ×2 (02:42→14:48)
[2017-12-23] MEDS: ALBUTEROL/IPRATROPIUM 3 ML NEB RESP TX SCH ×2 (07:27→14:40)
[2017-12-23] MEDS: ONDANSETRON 4 MG/2 ML VIAL IV PRN (07:30)
[2017-12-23] MEDS: BRIMONIDINE 0.2% OPH SOLN 5 ML BOTTLE BOTH EYES SCH ×2 (08:30→20:50)
[2017-12-23] MEDS: INSULIN REGULAR 100 UNIT/ML SUBCUT SCH ×4 (08:30→20:51)
[2017-12-23 10:03] LABS: Basophils % 0.2 % (0.0-0.8); Eosinophils # 0.1 10*3/uL (0.0-0.87); Eosinophils % 2.2 % (0.00-10.9); Hematocrit 24.7 VOL% (35.7-47.0); Hemoglobin 7.7 GM/DL (12.0-16.0); Immature Granulocytes % 0.7 %; Immature Granulocytes Absolute 0.03 #; Lymphocytes # 0.5 10*3/uL (1.4-4.0); Lymphocytes % 11.1 % (21.3-54.2); Mean Corpuscular HGB Conc 31.2 GM/DL (32-36); Mean Corpuscular Hemoglobin 29 PG (27-34); Mean Corpuscular Volume 93.6 FL (87-102); Mean Platelet Volume 10.9 FL (9.6-12.0); Monocytes # 0.6 10*3/uL (0.11-0.8); Monocytes % 13.1 % (1.7-12.7); Neutrophils # 3.3 10*3/uL (1.4-7.4); Neutrophils % 72.7 % (38.7-73.9); Platelet Count 143 T/CUMM (130-400); Red Blood Count 2.64 MC/CUMM (3.8-5.5); Red Cell Distribution Width 13.4 % (9.3-17.3); White Blood Count 4.5 T/CUMM (4-12)
[2017-12-23 10:30] LABS: Calcium 7.5 MG/DL (8.5-10.1); Magnesium 1.9 MG/DL (1.8-2.4); Osmolality,Calculated 277.5 MOS/KG (273-304); Potassium 5.3 MMOL/L (3.5-5.1)
[2017-12-23] MEDS: CALCIUM ACETATE 667 MG CAPSULE PO SCH ×3 (12:53→17:13)
[2017-12-23] MEDS: CLOPIDOGREL 75 MG TABLET PO SCH (14:29)
[2017-12-23] MEDS: HYDROXYCHLOROQUINE 200 MG TABLET PO SCH (14:29)
[2017-12-23] MEDS: PANTOPRAZOLE 40 MG TABLET PO SCH (14:29)
[2017-12-23] MEDS: DOCUSATE SODIUM 100 MG CAPSULE PO SCH ×2 (14:29→20:46)
[2017-12-23] MEDS: ASPIRIN EC 81 MG TABLET PO SCH (14:29)
[2017-12-23] MEDS: METOPROLOL TARTRATE 25 MG TABLET PO SCH ×2 (14:30→20:46)
[2017-12-23] MEDS: LORATADINE 10 MG TABLET PO SCH (14:30)
[2017-12-23] MEDS: GABAPENTIN 100 MG CAPSULE PO SCH ×2 (14:30→20:46)
[2017-12-23] MEDS: ENOXAPARIN 30 MG/0.3 ML SYRINGE SUBCUT SCH ×2 (14:30→14:37)
[2017-12-23] MEDS: FLUTICASONE 50 MCG NASAL SPRAY 16 GM BOTTLE BOTH NARES SCH ×2 (14:31→20:47)
[2017-12-23] MEDS: CINACALCET 30 MG TABLET PO SCH (17:14)
[2017-12-23] MEDS: guaiFENesin/DM ER 600-30 MG TABLET PO PRN (20:46)
[2017-12-24 06:30] LABS: Basophils % 0.2 % (0.0-0.8); Eosinophils # 0.1 10*3/uL (0.0-0.87); Eosinophils % 2.2 % (0.00-10.9); Hematocrit 24.7 VOL% (35.7-47.0); Hemoglobin 7.6 GM/DL (12.0-16.0); Immature Granulocytes % 0.5 %; Immature Granulocytes Absolute 0.03 #; Lymphocytes # 0.7 10*3/uL (1.4-4.0); Lymphocytes % 11.4 % (21.3-54.2); Mean Corpuscular HGB Conc 30.8 GM/DL (32-36); Mean Corpuscular Hemoglobin 29 PG (27-34); Mean Corpuscular Volume 93.9 FL (87-102); Mean Platelet Volume 11.3 FL (9.6-12.0); Monocytes # 1.1 10*3/uL (0.11-0.8); Monocytes % 18.6 % (1.7-12.7); Neutrophils % 67.1 % (38.7-73.9); Platelet Count 167 T/CUMM (130-400); Red Blood Count 2.63 MC/CUMM (3.8-5.5); Red Cell Distribution Width 13.4 % (9.3-17.3)
[2017-12-24 06:59] LABS: Hypochromasia 2+; Lymphocytes 16 % (20-55); Microcytosis 1+; Platelet Estimate Decreased; Segmented Neutrophils 72 % (50-85); Total Cells Counted 100
[2017-12-24] MEDS: ALBUTEROL/IPRATROPIUM 3 ML NEB RESP TX SCH ×4 (07:38→23:09)
[2017-12-24] MEDS: HYDROXYCHLOROQUINE 200 MG TABLET PO SCH (08:28)
[2017-12-24] MEDS: CALCIUM ACETATE 667 MG CAPSULE PO SCH ×3 (08:29→17:30)
[2017-12-24] MEDS: guaiFENesin/DM ER 600-30 MG TABLET PO PRN (08:29)
[2017-12-24] MEDS: LORATADINE 10 MG TABLET PO SCH (08:30)
[2017-12-24] MEDS: PANTOPRAZOLE 40 MG TABLET PO SCH (08:30)
[2017-12-24] MEDS: GABAPENTIN 100 MG CAPSULE PO SCH ×2 (08:30→23:22)
[2017-12-24] MEDS: LEVOFLOXACIN 750 MG TABLET PO SCH (08:30)
[2017-12-24] MEDS: DOCUSATE SODIUM 100 MG CAPSULE PO SCH ×2 (08:31→23:22)
[2017-12-24] MEDS: METOPROLOL TARTRATE 25 MG TABLET PO SCH ×2 (08:31→23:23)
[2017-12-24] MEDS: CLOPIDOGREL 75 MG TABLET PO SCH (08:32)
[2017-12-24] MEDS: ASPIRIN EC 81 MG TABLET PO SCH (08:32)
[2017-12-24] MEDS: traMADol 50 MG TABLET PO PRN ×2 (08:32→23:21)
[2017-12-24] MEDS: ENOXAPARIN 30 MG/0.3 ML SYRINGE SUBCUT SCH (08:35)
[2017-12-24] MEDS: BRIMONIDINE 0.2% OPH SOLN 5 ML BOTTLE BOTH EYES SCH ×2 (08:36→23:23)
[2017-12-24] MEDS: FLUTICASONE 50 MCG NASAL SPRAY 16 GM BOTTLE BOTH NARES SCH ×2 (08:36→23:25)
[2017-12-24] MEDS: INSULIN REGULAR 100 UNIT/ML SUBCUT SCH ×4 (08:39→20:40)
[2017-12-24] MEDS ORDERED: CALCIUM CARBONATE CHEW 500 MG TABLET PO PRN (12:18)
[2017-12-24] MEDS: CINACALCET 30 MG TABLET PO SCH (17:30)
[2017-12-25] MEDS: ALBUTEROL/IPRATROPIUM 3 ML NEB RESP TX SCH ×3 (06:58→23:57)
[2017-12-25] MEDS: CALCIUM ACETATE 667 MG CAPSULE PO SCH ×3 (07:36→17:58)
[2017-12-25] MEDS: traMADol 50 MG TABLET PO PRN ×2 (07:36→17:57)
[2017-12-25] MEDS: ONDANSETRON 4 MG/2 ML VIAL IV PRN (07:38)
[2017-12-25] MEDS: BRIMONIDINE 0.2% OPH SOLN 5 ML BOTTLE BOTH EYES SCH ×2 (09:04→22:19)
[2017-12-25] MEDS: LORATADINE 10 MG TABLET PO SCH ×2 (09:04→22:31)
[2017-12-25] MEDS: ASPIRIN EC 81 MG TABLET PO SCH (09:04)
[2017-12-25] MEDS: INSULIN REGULAR 100 UNIT/ML SUBCUT SCH ×4 (09:04→22:06)
[2017-12-25] MEDS: DOCUSATE SODIUM 100 MG CAPSULE PO SCH ×2 (09:04→22:20)
[2017-12-25] MEDS: GABAPENTIN 100 MG CAPSULE PO SCH ×2 (09:05→22:19)
[2017-12-25] MEDS: CLOPIDOGREL 75 MG TABLET PO SCH (09:05)
[2017-12-25] MEDS: HYDROXYCHLOROQUINE 200 MG TABLET PO SCH (09:05)
[2017-12-25] MEDS: METOPROLOL TARTRATE 25 MG TABLET PO SCH ×2 (09:05→22:19)
[2017-12-25] MEDS: ENOXAPARIN 30 MG/0.3 ML SYRINGE SUBCUT SCH (09:05)
[2017-12-25] MEDS: FLUTICASONE 50 MCG NASAL SPRAY 16 GM BOTTLE BOTH NARES SCH ×2 (09:05→22:19)
[2017-12-25] MEDS: PANTOPRAZOLE 40 MG TABLET PO SCH (09:06)
[2017-12-25 12:01] LABS: Basophils % 0.2 % (0.0-0.8); Eosinophils # 0.1 10*3/uL (0.0-0.87); Eosinophils % 1.7 % (0.00-10.9); Hematocrit 24.6 VOL% (35.7-47.0); Hemoglobin 7.8 GM/DL (12.0-16.0); Immature Granulocytes % 0.2 %; Immature Granulocytes Absolute 0.01 #; Lymphocytes # 0.4 10*3/uL (1.4-4.0); Lymphocytes % 8.3 % (21.3-54.2); Mean Corpuscular HGB Conc 31.7 GM/DL (32-36); Mean Corpuscular Hemoglobin 29 PG (27-34); Mean Corpuscular Volume 91.4 FL (87-102); Mean Platelet Volume 10.7 FL (9.6-12.0); Monocytes # 0.8 10*3/uL (0.11-0.8); Monocytes % 15.7 % (1.7-12.7); Neutrophils # 3.8 10*3/uL (1.4-7.4); Neutrophils % 73.9 % (38.7-73.9); Platelet Count 157 T/CUMM (130-400); Red Blood Count 2.69 MC/CUMM (3.8-5.5); Red Cell Distribution Width 13.4 % (9.3-17.3); White Blood Count 5.2 T/CUMM (4-12)
[2017-12-25 12:31] LABS: Hypochromasia 1+; Lymphocytes 10 % (20-55); Microcytosis 1+; Platelet Estimate Adequate; Segmented Neutrophils 82 % (50-85); Total Cells Counted 100
[2017-12-25 12:34] LABS: Calcium 8.5 MG/DL (8.5-10.1); Osmolality,Calculated 270.2 MOS/KG (273-304); Potassium 3.5 MMOL/L (3.5-5.1)
[2017-12-25] MEDS: CINACALCET 30 MG TABLET PO SCH (17:58)
[2017-12-25] MEDS: guaiFENesin/DM ER 600-30 MG TABLET PO PRN (22:32)
[2017-12-26] MEDS: ALBUTEROL/IPRATROPIUM 3 ML NEB RESP TX SCH ×2 (07:17→16:26)
[2017-12-26] MEDS: BRIMONIDINE 0.2% OPH SOLN 5 ML BOTTLE BOTH EYES SCH (08:33)
[2017-12-26] MEDS: GABAPENTIN 100 MG CAPSULE PO SCH (08:33)
[2017-12-26] MEDS: CALCIUM ACETATE 667 MG CAPSULE PO SCH ×3 (08:33→16:43)
[2017-12-26] MEDS: CLOPIDOGREL 75 MG TABLET PO SCH (08:33)
[2017-12-26] MEDS: DOCUSATE SODIUM 100 MG CAPSULE PO SCH (08:34)
[2017-12-26] MEDS: METOPROLOL TARTRATE 25 MG TABLET PO SCH (08:34)
[2017-12-26] MEDS: LORATADINE 10 MG TABLET PO SCH (08:34)
[2017-12-26] MEDS: PANTOPRAZOLE 40 MG TABLET PO SCH (08:36)
[2017-12-26] MEDS: ASPIRIN EC 81 MG TABLET PO SCH (08:36)
[2017-12-26] MEDS: FLUTICASONE 50 MCG NASAL SPRAY 16 GM BOTTLE BOTH NARES SCH (08:37)
[2017-12-26] MEDS: ENOXAPARIN 30 MG/0.3 ML SYRINGE SUBCUT SCH (08:37)
[2017-12-26] MEDS: HYDROXYCHLOROQUINE 200 MG TABLET PO SCH (08:38)
[2017-12-26] MEDS: INSULIN REGULAR 100 UNIT/ML SUBCUT SCH ×3 (08:41→16:39)
[2017-12-26 16:42] VITALS: BP 171/73
[2017-12-26] MEDS: CINACALCET 30 MG TABLET PO SCH (16:42)
[2017-12-26] MEDS: traMADol 50 MG TABLET PO PRN (16:43)
== END 2017-12-26 17:30 | disposition home health service (06) | DRG 193 ==
LOC: EDBD → EDUNIT# → N.ED 18:04 → N.EDINP 22:28 → SUATTDRO 22:28 → SUPCPDRO 22:28 → N.CC 12-16 01:59 → N.2E 12-16 20:06
PROVIDERS: ADMIT Internal Medicine; ATTEND Internal Medicine

== ENCOUNTER 2018-01-02 18:24 | Inpatient (IN) ==
[2018-01-02] MEDS ORDERED: ONDANSETRON 4 MG/2 ML VIAL IV STA (18:43)
[2018-01-02] MEDS ORDERED: ALBUTEROL 2.5 MG/3 ML NEB RESP TX SCH (19:00)
[2018-01-02] MEDS ORDERED: hydrALAZINE 20 MG/1 ML VIAL IV STA (19:06)
[2018-01-02 19:26] LABS: Alanine Aminotransferase 14 U/L (13-56); Alkaline Phosphatase 135 U/L (45-117); Aspartate Amino Transferase 48 U/L (0-37); Blood Urea Nitrogen 17 MG/DL (7-18); Calcium 8.1 MG/DL (8.5-10.1); Glucose 81 MG/DL (74-106); Potassium 4.3 MMOL/L (3.5-5.1); Sodium 136 MMOL/L (136-145); Total Protein 7.2 G/DL (6.4-8.3)
[2018-01-02 19:27] LABS: Troponin I Only 0.461 NG/ML (0.00-0.045)
[2018-01-02 19:52] LABS: Basophils % 0.4 % (0.0-0.8); Eosinophils # 0.1 10*3/uL (0.0-0.87); Eosinophils % 2.3 % (0.00-10.9); Hematocrit 25.5 VOL% (35.7-47.0); Hemoglobin 8.1 GM/DL (12.0-16.0); Immature Granulocytes % 0.6 %; Immature Granulocytes Absolute 0.03 #; Lymphocytes # 0.7 10*3/uL (1.4-4.0); Lymphocytes % 14.8 % (21.3-54.2); Mean Corpuscular HGB Conc 31.8 GM/DL (32-36); Mean Corpuscular Hemoglobin 29 PG (27-34); Mean Corpuscular Volume 91.1 FL (87-102); Mean Platelet Volume 10.6 FL (9.6-12.0); Monocytes # 0.7 10*3/uL (0.11-0.8); Neutrophils # 3.3 10*3/uL (1.4-7.4); Neutrophils % 66.9 % (38.7-73.9); Platelet Count 147 T/CUMM (130-400); Red Cell Distribution Width 13.9 % (9.3-17.3); White Blood Count 4.9 T/CUMM (4-12)
[2018-01-02 20:02] LABS: INR 1.1; Partial Thromboplastin Time 28.2 SECS (0-40)
[2018-01-02] MEDS ORDERED: FUROSEMIDE 40 MG/4 ML VIAL ONE (20:38)
[2018-01-02] MEDS ORDERED: FUROSEMIDE 40 MG/4 ML VIAL IV STA (20:42)
[2018-01-02] MEDS ORDERED: ONDANSETRON 4 MG/2 ML VIAL ONE (20:46)
[2018-01-02] MEDS ORDERED: hydrALAZINE 20 MG/1 ML VIAL ONE (20:46)
[2018-01-02] MEDS ORDERED: LOPERAMIDE 2 MG CAPSULE PO PRN (20:48)
[2018-01-02] MEDS ORDERED: ERGOCALCIFEROL 50,000 UNIT CAPSULE PO SCH (21:00)
[2018-01-02] MEDS: traMADol 50 MG TABLET PO PRN (21:40)
[2018-01-02] MEDS: ENOXAPARIN 30 MG/0.3 ML SYRINGE SUBCUT SCH (22:56)
[2018-01-02] MEDS: BRIMONIDINE 0.2% OPH SOLN 5 ML BOTTLE BOTH EYES SCH (22:56)
[2018-01-03 05:33] LABS: Calcium 7.8 MG/DL (8.5-10.1); Osmolality,Calculated 277.5 MOS/KG (273-304)
[2018-01-03 06:16] LABS: Basophils % 0.2 % (0.0-0.8); Eosinophils # 0.1 10*3/uL (0.0-0.87); Eosinophils % 1.2 % (0.00-10.9); Hematocrit 21.6 VOL% (35.7-47.0); Hemoglobin 7.1 GM/DL (12.0-16.0); Immature Granulocytes % 0.3 %; Immature Granulocytes Absolute 0.02 #; Lymphocytes # 0.6 10*3/uL (1.4-4.0); Lymphocytes % 9.8 % (21.3-54.2); Mean Corpuscular HGB Conc 32.9 GM/DL (32-36); Mean Corpuscular Hemoglobin 30 PG (27-34); Mean Corpuscular Volume 90.8 FL (87-102); Mean Platelet Volume 10.7 FL (9.6-12.0); Monocytes # 0.9 10*3/uL (0.11-0.8); Neutrophils # 4.2 10*3/uL (1.4-7.4); Neutrophils % 73.5 % (38.7-73.9); Platelet Count 157 T/CUMM (130-400); Red Blood Count 2.38 MC/CUMM (3.8-5.5); Red Cell Distribution Width 14.1 % (9.3-17.3); White Blood Count 5.7 T/CUMM (4-12)
[2018-01-03] MEDS: traMADol 50 MG TABLET PO PRN (06:25)
[2018-01-03] MEDS ORDERED: SODIUM CHLORIDE 0.9% 1,000 ML IV PRN ×2 (07:50→10:32)
[2018-01-03] MEDS: BRIMONIDINE 0.2% OPH SOLN 5 ML BOTTLE BOTH EYES SCH ×2 (09:00→20:37)
[2018-01-03] MEDS: CALCIUM ACETATE 667 MG CAPSULE PO SCH ×3 (09:00→17:06)
[2018-01-03] MEDS: LORATADINE 10 MG TABLET PO SCH (09:00)
[2018-01-03] MEDS: ASPIRIN EC 81 MG TABLET PO SCH (09:00)
[2018-01-03] MEDS ORDERED: METOPROLOL TARTRATE 25 MG TABLET PO SCH ×2 (09:00)
[2018-01-03] MEDS: HYDROXYCHLOROQUINE 200 MG TABLET PO SCH (09:01)
[2018-01-03] MEDS: GABAPENTIN 100 MG CAPSULE PO SCH (09:01)
[2018-01-03] MEDS: METOPROLOL TARTRATE 25 MG TABLET PO SCH ×2 (09:01→20:37)
[2018-01-03] MEDS: amLODIPine 10 MG TABLET PO SCH ×2 (09:01→14:53)
[2018-01-03] MEDS: CLOPIDOGREL 75 MG TABLET PO SCH (09:01)
[2018-01-03] MEDS: PANTOPRAZOLE 40 MG TABLET PO SCH (09:02)
[2018-01-03] MEDS ORDERED: ACETAMINOPHEN 325 MG TABLET PO PRN (09:26)
[2018-01-03] MEDS ORDERED: GLUCAGON 1 MG VIAL IM PRN (18:46)
[2018-01-03] MEDS ORDERED: DEXTROSE 50% 25 GM/50 ML VIAL IV PRN (18:46)
[2018-01-03] MEDS: ENOXAPARIN 30 MG/0.3 ML SYRINGE SUBCUT SCH (20:38)
[2018-01-04] MEDS: ONDANSETRON 4 MG/2 ML VIAL IV PRN ×3 (00:35→20:38)
[2018-01-04 04:36] LABS: Basophils % 0.2 % (0.0-0.8); Eosinophils # 0.2 10*3/uL (0.0-0.87); Eosinophils % 4.6 % (0.00-10.9); Hematocrit 25.5 VOL% (35.7-47.0); Immature Granulocytes % 0.4 %; Immature Granulocytes Absolute 0.02 #; Lymphocytes # 0.6 10*3/uL (1.4-4.0); Lymphocytes % 12.1 % (21.3-54.2); Mean Corpuscular HGB Conc 31.4 GM/DL (32-36); Mean Corpuscular Hemoglobin 29 PG (27-34); Mean Corpuscular Volume 93.8 FL (87-102); Mean Platelet Volume 10.5 FL (9.6-12.0); Monocytes # 0.8 10*3/uL (0.11-0.8); Neutrophils # 3.2 10*3/uL (1.4-7.4); Neutrophils % 66.7 % (38.7-73.9); Platelet Count 152 T/CUMM (130-400); Red Blood Count 2.72 MC/CUMM (3.8-5.5); Red Cell Distribution Width 14.4 % (9.3-17.3); White Blood Count 4.8 T/CUMM (4-12)
[2018-01-04 05:23] LABS: Eosinophils 3 % (0-10); Giant Platelets Few; Hypochromasia 1+; Lymphocytes 13 % (20-55); Ovalocytes Slight; Platelet Estimate Normal; Segmented Neutrophils 68 % (50-85); Total Cells Counted 100
[2018-01-04] MEDS: CALCIUM ACETATE 667 MG CAPSULE PO SCH ×3 (08:11→17:44)
[2018-01-04] MEDS: PANTOPRAZOLE 40 MG TABLET PO SCH (09:14)
[2018-01-04] MEDS: LORATADINE 10 MG TABLET PO SCH (09:15)
[2018-01-04] MEDS: METOPROLOL TARTRATE 25 MG TABLET PO SCH ×2 (09:15→20:38)
[2018-01-04] MEDS: HYDROXYCHLOROQUINE 200 MG TABLET PO SCH (09:15)
[2018-01-04] MEDS: CLOPIDOGREL 75 MG TABLET PO SCH (09:15)
[2018-01-04] MEDS: GABAPENTIN 100 MG CAPSULE PO SCH (09:15)
[2018-01-04] MEDS: ASPIRIN EC 81 MG TABLET PO SCH (09:15)
[2018-01-04] MEDS: amLODIPine 10 MG TABLET PO SCH (09:15)
[2018-01-04] MEDS: BRIMONIDINE 0.2% OPH SOLN 5 ML BOTTLE BOTH EYES SCH ×2 (09:20→20:38)
[2018-01-04 10:08] LABS: Hematocrit 29.7 VOL% (35.7-47.0); Hemoglobin 9.8 GM/DL (12.0-16.0)
[2018-01-04] MEDS: traMADol 50 MG TABLET PO PRN (17:44)
[2018-01-04] MEDS: ENOXAPARIN 30 MG/0.3 ML SYRINGE SUBCUT SCH (20:38)
[2018-01-05 05:53] LABS: Basophils % 0.4 % (0.0-0.8); Eosinophils # 0.3 10*3/uL (0.0-0.87); Eosinophils % 6.7 % (0.00-10.9); Hematocrit 27.4 VOL% (35.7-47.0); Hemoglobin 8.7 GM/DL (12.0-16.0); Immature Granulocytes % 0.4 %; Immature Granulocytes Absolute 0.02 #; Lymphocytes # 0.8 10*3/uL (1.4-4.0); Lymphocytes % 18.4 % (21.3-54.2); Mean Corpuscular HGB Conc 31.8 GM/DL (32-36); Mean Corpuscular Hemoglobin 31 PG (27-34); Mean Corpuscular Volume 96.5 FL (87-102); Mean Platelet Volume 11.1 FL (9.6-12.0); Monocytes # 0.6 10*3/uL (0.11-0.8); Monocytes % 14.2 % (1.7-12.7); Neutrophils # 2.7 10*3/uL (1.4-7.4); Neutrophils % 59.9 % (38.7-73.9); Platelet Count 157 T/CUMM (130-400); Red Blood Count 2.84 MC/CUMM (3.8-5.5); Red Cell Distribution Width 14.1 % (9.3-17.3); White Blood Count 4.5 T/CUMM (4-12)
[2018-01-05 06:09] LABS: Osmolality,Calculated 274.1 MOS/KG (273-304); Potassium 4.3 MMOL/L (3.5-5.1)
[2018-01-05] MEDS: amLODIPine 10 MG TABLET PO SCH (08:13)
[2018-01-05] MEDS: CLOPIDOGREL 75 MG TABLET PO SCH (08:13)
[2018-01-05] MEDS: HYDROXYCHLOROQUINE 200 MG TABLET PO SCH (08:13)
[2018-01-05] MEDS: LORATADINE 10 MG TABLET PO SCH (08:13)
[2018-01-05] MEDS: GABAPENTIN 100 MG CAPSULE PO SCH (08:14)
[2018-01-05] MEDS: ASPIRIN EC 81 MG TABLET PO SCH (08:14)
[2018-01-05] MEDS: METOPROLOL TARTRATE 25 MG TABLET PO SCH ×2 (08:14→21:00)
[2018-01-05] MEDS: CALCIUM ACETATE 667 MG CAPSULE PO SCH ×3 (08:14→16:53)
[2018-01-05] MEDS: PANTOPRAZOLE 40 MG TABLET PO SCH (08:14)
[2018-01-05] MEDS: BRIMONIDINE 0.2% OPH SOLN 5 ML BOTTLE BOTH EYES SCH ×2 (08:17→21:02)
[2018-01-05] MEDS: ONDANSETRON 4 MG/2 ML VIAL IV PRN (10:57)
[2018-01-05] MEDS: traMADol 50 MG TABLET PO PRN (10:57)
[2018-01-05] MEDS ORDERED: ALBUTEROL/IPRATROPIUM 3 ML NEB RESP TX PRN (14:22)
[2018-01-05] MEDS: ENOXAPARIN 30 MG/0.3 ML SYRINGE SUBCUT SCH (20:59)
[2018-01-05] MEDS: LACTOBACILLUS RHAMNOSUS GG CAPSULE PO SCH (21:00)
[2018-01-06 04:41] LABS: Basophils % 0.2 % (0.0-0.8); Eosinophils # 0.3 10*3/uL (0.0-0.87); Eosinophils % 6.5 % (0.00-10.9); Hematocrit 27.4 VOL% (35.7-47.0); Hemoglobin 8.6 GM/DL (12.0-16.0); Immature Granulocytes % 0.4 %; Immature Granulocytes Absolute 0.02 #; Lymphocytes # 0.7 10*3/uL (1.4-4.0); Lymphocytes % 14.4 % (21.3-54.2); Mean Corpuscular HGB Conc 31.4 GM/DL (32-36); Mean Corpuscular Hemoglobin 30 PG (27-34); Mean Corpuscular Volume 94.8 FL (87-102); Mean Platelet Volume 10.6 FL (9.6-12.0); Monocytes # 0.8 10*3/uL (0.11-0.8); Monocytes % 15.2 % (1.7-12.7); Neutrophils # 3.2 10*3/uL (1.4-7.4); Neutrophils % 63.3 % (38.7-73.9); Platelet Count 146 T/CUMM (130-400); Red Blood Count 2.89 MC/CUMM (3.8-5.5); Red Cell Distribution Width 14.4 % (9.3-17.3); White Blood Count 5.1 T/CUMM (4-12)
[2018-01-06 05:15] LABS: Calcium 8.3 MG/DL (8.5-10.1); Osmolality,Calculated 276.4 MOS/KG (273-304); Potassium 4.7 MMOL/L (3.5-5.1)
[2018-01-06] MEDS: ASPIRIN EC 81 MG TABLET PO SCH ×2 (07:53→09:56)
[2018-01-06] MEDS: PANTOPRAZOLE 40 MG TABLET PO SCH ×2 (07:54→09:58)
[2018-01-06] MEDS: CALCIUM ACETATE 667 MG CAPSULE PO SCH ×3 (07:54→16:58)
[2018-01-06] MEDS: HYDROXYCHLOROQUINE 200 MG TABLET PO SCH ×2 (07:55→09:58)
[2018-01-06] MEDS: CLOPIDOGREL 75 MG TABLET PO SCH ×2 (07:55→09:59)
[2018-01-06] MEDS: LORATADINE 10 MG TABLET PO SCH ×2 (07:55→09:56)
[2018-01-06] MEDS: LACTOBACILLUS RHAMNOSUS GG CAPSULE PO SCH ×3 (07:55→21:45)
[2018-01-06] MEDS: GABAPENTIN 100 MG CAPSULE PO SCH ×2 (07:56→09:57)
[2018-01-06] MEDS: traMADol 50 MG TABLET PO PRN (09:07)
[2018-01-06] MEDS: ONDANSETRON 4 MG/2 ML VIAL IV PRN (09:08)
[2018-01-06] MEDS: BRIMONIDINE 0.2% OPH SOLN 5 ML BOTTLE BOTH EYES SCH ×2 (09:11→21:46)
[2018-01-06] MEDS: METOPROLOL TARTRATE 25 MG TABLET PO SCH ×3 (09:57→21:45)
[2018-01-06] MEDS: amLODIPine 10 MG TABLET PO SCH ×2 (09:58→13:54)
[2018-01-06] MEDS: LEVOFLOXACIN 250 MG TABLET PO SCH (16:58)
[2018-01-06] MEDS: ENOXAPARIN 30 MG/0.3 ML SYRINGE SUBCUT SCH (21:46)
[2018-01-07] MEDS: ONDANSETRON 4 MG/2 ML VIAL IV PRN (02:52)
[2018-01-07 06:43] LABS: Basophils % 0.7 % (0.0-0.8); Eosinophils # 0.2 10*3/uL (0.0-0.87); Eosinophils % 5.4 % (0.00-10.9); Hematocrit 26.3 VOL% (35.7-47.0); Hemoglobin 8.2 GM/DL (12.0-16.0); Immature Granulocytes % 0.5 %; Immature Granulocytes Absolute 0.02 #; Lymphocytes # 0.6 10*3/uL (1.4-4.0); Lymphocytes % 15.4 % (21.3-54.2); Mean Corpuscular HGB Conc 31.2 GM/DL (32-36); Mean Corpuscular Hemoglobin 30 PG (27-34); Mean Corpuscular Volume 94.9 FL (87-102); Mean Platelet Volume 10.8 FL (9.6-12.0); Monocytes # 0.7 10*3/uL (0.11-0.8); Monocytes % 17.4 % (1.7-12.7); Neutrophils # 2.5 10*3/uL (1.4-7.4); Neutrophils % 60.6 % (38.7-73.9); Platelet Count 146 T/CUMM (130-400); Red Blood Count 2.77 MC/CUMM (3.8-5.5); Red Cell Distribution Width 14.6 % (9.3-17.3); White Blood Count 4.1 T/CUMM (4-12)
[2018-01-07 07:08] LABS: Eosinophils 6 % (0-10); Hypochromasia 1+; Lymphocytes 13 % (20-55); Microcytosis Slight; Nucleated Red Blood Cells 1 (0-5); Platelet Estimate Adequate; Segmented Neutrophils 70 % (50-85); Total Cells Counted 100
[2018-01-07 07:23] LABS: Calcium 8.2 MG/DL (8.5-10.1); Osmolality,Calculated 276.1 MOS/KG (273-304); Potassium 4.7 MMOL/L (3.5-5.1)
[2018-01-07] MEDS: LORATADINE 10 MG TABLET PO SCH (09:07)
[2018-01-07] MEDS: ASPIRIN EC 81 MG TABLET PO SCH (09:07)
[2018-01-07] MEDS: amLODIPine 10 MG TABLET PO SCH (09:07)
[2018-01-07] MEDS: traMADol 50 MG TABLET PO PRN ×2 (09:08→21:27)
[2018-01-07] MEDS: PANTOPRAZOLE 40 MG TABLET PO SCH (09:08)
[2018-01-07] MEDS: HYDROXYCHLOROQUINE 200 MG TABLET PO SCH (09:08)
[2018-01-07] MEDS: CLOPIDOGREL 75 MG TABLET PO SCH (09:08)
[2018-01-07] MEDS: METOPROLOL TARTRATE 25 MG TABLET PO SCH (09:08)
[2018-01-07] MEDS: CALCIUM ACETATE 667 MG CAPSULE PO SCH ×3 (09:08→17:55)
[2018-01-07] MEDS: GABAPENTIN 100 MG CAPSULE PO SCH (09:08)
[2018-01-07] MEDS: BRIMONIDINE 0.2% OPH SOLN 5 ML BOTTLE BOTH EYES SCH ×2 (09:10→21:28)
[2018-01-07] MEDS: LACTOBACILLUS RHAMNOSUS GG CAPSULE PO SCH ×2 (14:10→21:28)
[2018-01-07] MEDS: ENOXAPARIN 30 MG/0.3 ML SYRINGE SUBCUT SCH (21:27)
[2018-01-07] MEDS: METOPROLOL TARTRATE 50 MG TABLET PO SCH (21:28)
[2018-01-08 05:20] LABS: Basophils % 0.4 % (0.0-0.8); Eosinophils # 0.2 10*3/uL (0.0-0.87); Eosinophils % 4.9 % (0.00-10.9); Hematocrit 26.1 VOL% (35.7-47.0); Hemoglobin 8.3 GM/DL (12.0-16.0); Immature Granulocytes % 0.2 %; Immature Granulocytes Absolute 0.01 #; Lymphocytes # 0.8 10*3/uL (1.4-4.0); Lymphocytes % 17.6 % (21.3-54.2); Mean Corpuscular HGB Conc 31.8 GM/DL (32-36); Mean Corpuscular Hemoglobin 30 PG (27-34); Mean Corpuscular Volume 94.9 FL (87-102); Mean Platelet Volume 10.6 FL (9.6-12.0); Monocytes # 0.7 10*3/uL (0.11-0.8); Monocytes % 16.5 % (1.7-12.7); Neutrophils # 2.7 10*3/uL (1.4-7.4); Neutrophils % 60.4 % (38.7-73.9); Platelet Count 147 T/CUMM (130-400); Red Blood Count 2.75 MC/CUMM (3.8-5.5); Red Cell Distribution Width 14.6 % (9.3-17.3); White Blood Count 4.5 T/CUMM (4-12)
[2018-01-08 05:43] LABS: Eosinophils 4 % (0-10); Hypochromasia 1+; Lymphocytes 17 % (20-55); Segmented Neutrophils 67 % (50-85); Total Cells Counted 100
[2018-01-08 05:44] LABS: Microcytosis Slight; Platelet Estimate Adequate
[2018-01-08 05:55] LABS: Calcium 8.4 MG/DL (8.5-10.1); Osmolality,Calculated 277.4 MOS/KG (273-304); Potassium 4.8 MMOL/L (3.5-5.1); Risk Ratio 2.5; VLDL CHOLESTEROL 9.6 MG/DL
[2018-01-08] MEDS: ONDANSETRON 4 MG/2 ML VIAL IV PRN ×2 (07:35→23:29)
[2018-01-08] MEDS: amLODIPine 10 MG TABLET PO SCH ×2 (08:10→16:30)
[2018-01-08] MEDS: CALCIUM ACETATE 667 MG CAPSULE PO SCH ×3 (08:11→16:30)
[2018-01-08] MEDS: CLOPIDOGREL 75 MG TABLET PO SCH (08:11)
[2018-01-08] MEDS: PANTOPRAZOLE 40 MG TABLET PO SCH (08:11)
[2018-01-08] MEDS: LORATADINE 10 MG TABLET PO SCH (08:11)
[2018-01-08] MEDS: GABAPENTIN 100 MG CAPSULE PO SCH (08:11)
[2018-01-08] MEDS: LACTOBACILLUS RHAMNOSUS GG CAPSULE PO SCH ×2 (08:11→21:18)
[2018-01-08] MEDS: ASPIRIN EC 81 MG TABLET PO SCH (08:11)
[2018-01-08] MEDS: HYDROXYCHLOROQUINE 200 MG TABLET PO SCH (08:11)
[2018-01-08] MEDS: METOPROLOL TARTRATE 50 MG TABLET PO SCH ×2 (08:11→21:18)
[2018-01-08] MEDS: BRIMONIDINE 0.2% OPH SOLN 5 ML BOTTLE BOTH EYES SCH ×2 (08:12→21:55)
[2018-01-08] MEDS: LEVOFLOXACIN 250 MG TABLET PO SCH (16:30)
[2018-01-08] MEDS: ENOXAPARIN 30 MG/0.3 ML SYRINGE SUBCUT SCH (21:18)
[2018-01-09 04:43] LABS: Basophils % 0.5 % (0.0-0.8); Eosinophils # 0.2 10*3/uL (0.0-0.87); Eosinophils % 4.6 % (0.00-10.9); Hematocrit 24.7 VOL% (35.7-47.0); Immature Granulocytes % 0.5 %; Immature Granulocytes Absolute 0.02 #; Lymphocytes # 0.6 10*3/uL (1.4-4.0); Lymphocytes % 16.4 % (21.3-54.2); Mean Corpuscular HGB Conc 32.4 GM/DL (32-36); Mean Corpuscular Hemoglobin 31 PG (27-34); Mean Corpuscular Volume 95.7 FL (87-102); Mean Platelet Volume 11.3 FL (9.6-12.0); Monocytes # 0.6 10*3/uL (0.11-0.8); Monocytes % 16.7 % (1.7-12.7); Neutrophils # 2.3 10*3/uL (1.4-7.4); Neutrophils % 61.3 % (38.7-73.9); Platelet Count 142 T/CUMM (130-400); Red Blood Count 2.58 MC/CUMM (3.8-5.5); Red Cell Distribution Width 14.3 % (9.3-17.3); White Blood Count 3.7 T/CUMM (4-12)
[2018-01-09 04:56] LABS: Calcium 8.7 MG/DL (8.5-10.1); Osmolality,Calculated 270.5 MOS/KG (273-304); Potassium 4.8 MMOL/L (3.5-5.1)
[2018-01-09 05:05] LABS: Eosinophils 3 % (0-10); Giant Platelets Few; Hypochromasia 1+; Lymphocytes 18 % (20-55); Microcytosis Slight; Ovalocytes Slight; Platelet Estimate Normal; Segmented Neutrophils 64 % (50-85); Total Cells Counted 100
[2018-01-09] MEDS: BRIMONIDINE 0.2% OPH SOLN 5 ML BOTTLE BOTH EYES SCH ×2 (09:06→21:19)
[2018-01-09] MEDS: ASPIRIN EC 81 MG TABLET PO SCH (09:07)
[2018-01-09] MEDS: amLODIPine 10 MG TABLET PO SCH (09:07)
[2018-01-09] MEDS: PANTOPRAZOLE 40 MG TABLET PO SCH (09:07)
[2018-01-09] MEDS: LACTOBACILLUS RHAMNOSUS GG CAPSULE PO SCH ×2 (09:07→21:24)
[2018-01-09] MEDS: HYDROXYCHLOROQUINE 200 MG TABLET PO SCH (09:07)
[2018-01-09] MEDS: CALCIUM ACETATE 667 MG CAPSULE PO SCH ×3 (09:07→16:34)
[2018-01-09] MEDS: LORATADINE 10 MG TABLET PO SCH (09:07)
[2018-01-09] MEDS: CLOPIDOGREL 75 MG TABLET PO SCH (09:07)
[2018-01-09] MEDS: METOPROLOL TARTRATE 50 MG TABLET PO SCH ×2 (09:08→21:18)
[2018-01-09] MEDS: GABAPENTIN 100 MG CAPSULE PO SCH (09:08)
[2018-01-09] MEDS: traMADol 50 MG TABLET PO PRN ×2 (09:11→21:18)
[2018-01-09] MEDS: ONDANSETRON 4 MG/2 ML VIAL IV PRN (12:40)
[2018-01-09] MEDS: ENOXAPARIN 30 MG/0.3 ML SYRINGE SUBCUT SCH (21:17)
[2018-01-10 05:21] LABS: Basophils % 0.3 % (0.0-0.8); Eosinophils # 0.1 10*3/uL (0.0-0.87); Eosinophils % 3.2 % (0.00-10.9); Hematocrit 23.6 VOL% (35.7-47.0); Hemoglobin 7.9 GM/DL (12.0-16.0); Immature Granulocytes % 0.3 %; Immature Granulocytes Absolute 0.01 #; Lymphocytes # 0.7 10*3/uL (1.4-4.0); Lymphocytes % 17.7 % (21.3-54.2); Mean Corpuscular HGB Conc 33.5 GM/DL (32-36); Mean Corpuscular Hemoglobin 31 PG (27-34); Mean Corpuscular Volume 92.5 FL (87-102); Mean Platelet Volume 11.4 FL (9.6-12.0); Monocytes # 0.7 10*3/uL (0.11-0.8); Neutrophils # 2.3 10*3/uL (1.4-7.4); Neutrophils % 59.5 % (38.7-73.9); Platelet Count 141 T/CUMM (130-400); Red Blood Count 2.55 MC/CUMM (3.8-5.5); Red Cell Distribution Width 14.3 % (9.3-17.3); White Blood Count 3.8 T/CUMM (4-12)
[2018-01-10 06:02] LABS: Band Neutrophils 3 % (0-10); Eosinophils 5 % (0-10); Lymphocytes 26 % (20-55); Myelocytes 3 %; Segmented Neutrophils 61 % (50-85); Total Cells Counted 100
[2018-01-10 06:03] LABS: Anisocytosis 1+; Hypochromasia 1+; Platelet Estimate Adequate
[2018-01-10 06:22] LABS: Calcium 8.5 MG/DL (8.5-10.1); Osmolality,Calculated 274.7 MOS/KG (273-304); Potassium 5.3 MMOL/L (3.5-5.1)
[2018-01-10] MEDS ORDERED: SODIUM CHLORIDE 0.9% 1,000 ML IV PRN (07:41)
[2018-01-10] MEDS: traMADol 50 MG TABLET PO PRN ×2 (07:45→18:26)
[2018-01-10 11:47] LABS: Hepatitis A Ab IgM Quant 0.06 Index; Hepatitis A Ab IgM Result Negative (Negative); Hepatitis B Core IgM Quant 0.15 Index; Hepatitis B Core IgM Result Negative (Negative); Hepatitis B Surface Ag Quant < 0.10 Index; Hepatitis B Surface Ag Result Negative (Negative); Hepatitis C Virus Ab Quant 0.09 Index; Hepatitis C Virus Ab Result Negative (Negative)
[2018-01-10] MEDS: HYDROXYCHLOROQUINE 200 MG TABLET PO SCH (11:55)
[2018-01-10] MEDS: amLODIPine 10 MG TABLET PO SCH (11:55)
[2018-01-10] MEDS: GABAPENTIN 100 MG CAPSULE PO SCH (11:56)
[2018-01-10] MEDS: PANTOPRAZOLE 40 MG TABLET PO SCH (11:56)
[2018-01-10] MEDS: CALCIUM ACETATE 667 MG CAPSULE PO SCH ×3 (11:56→16:49)
[2018-01-10] MEDS: METOPROLOL TARTRATE 50 MG TABLET PO SCH ×2 (11:56→22:12)
[2018-01-10] MEDS: LORATADINE 10 MG TABLET PO SCH (11:56)
[2018-01-10] MEDS: ASPIRIN EC 81 MG TABLET PO SCH (11:57)
[2018-01-10] MEDS: CLOPIDOGREL 75 MG TABLET PO SCH (11:57)
[2018-01-10] MEDS: LACTOBACILLUS RHAMNOSUS GG CAPSULE PO SCH ×2 (11:57→22:12)
[2018-01-10] MEDS: BRIMONIDINE 0.2% OPH SOLN 5 ML BOTTLE BOTH EYES SCH ×2 (11:58→22:12)
[2018-01-10] MEDS: LEVOFLOXACIN 250 MG TABLET PO SCH (16:50)
[2018-01-10] MEDS: ENOXAPARIN 30 MG/0.3 ML SYRINGE SUBCUT SCH (22:12)
[2018-01-11 05:03] LABS: Basophils % 0.3 % (0.0-0.8); Eosinophils # 0.2 10*3/uL (0.0-0.87); Eosinophils % 3.9 % (0.00-10.9); Hematocrit 24.8 VOL% (35.7-47.0); Hemoglobin 8.5 GM/DL (12.0-16.0); Immature Granulocytes % 0.5 %; Immature Granulocytes Absolute 0.02 #; Lymphocytes # 0.7 10*3/uL (1.4-4.0); Mean Corpuscular HGB Conc 34.3 GM/DL (32-36); Mean Corpuscular Hemoglobin 32 PG (27-34); Mean Corpuscular Volume 91.9 FL (87-102); Mean Platelet Volume 11.2 FL (9.6-12.0); Monocytes # 0.8 10*3/uL (0.11-0.8); Monocytes % 20.1 % (1.7-12.7); Neutrophils # 2.2 10*3/uL (1.4-7.4); Neutrophils % 57.2 % (38.7-73.9); Platelet Count 148 T/CUMM (130-400); Red Cell Distribution Width 14.2 % (9.3-17.3); White Blood Count 3.9 T/CUMM (4-12)
[2018-01-11] MEDS: traMADol 50 MG TABLET PO PRN ×2 (05:05→21:20)
[2018-01-11] MEDS: ONDANSETRON 4 MG/2 ML VIAL IV PRN (05:05)
[2018-01-11 05:17] LABS: Calcium 8.8 MG/DL (8.5-10.1); Osmolality,Calculated 271.5 MOS/KG (273-304); Potassium 4.8 MMOL/L (3.5-5.1)
[2018-01-11 05:37] LABS: Band Neutrophils 10 % (0-10); Eosinophils 4 % (0-10); Lymphocytes 26 % (20-55); Platelet Estimate Normal; Segmented Neutrophils 52 % (50-85); Total Cells Counted 100
[2018-01-11 05:38] LABS: Macrocytosis Slight
[2018-01-11] MEDS: GABAPENTIN 100 MG CAPSULE PO SCH (08:29)
[2018-01-11] MEDS: ASPIRIN EC 81 MG TABLET PO SCH (08:30)
[2018-01-11] MEDS: amLODIPine 10 MG TABLET PO SCH (08:30)
[2018-01-11] MEDS: CALCIUM ACETATE 667 MG CAPSULE PO SCH ×3 (08:30→16:26)
[2018-01-11] MEDS: HYDROXYCHLOROQUINE 200 MG TABLET PO SCH (08:30)
[2018-01-11] MEDS: LACTOBACILLUS RHAMNOSUS GG CAPSULE PO SCH ×2 (08:31→21:20)
[2018-01-11] MEDS: CLOPIDOGREL 75 MG TABLET PO SCH (08:31)
[2018-01-11] MEDS: LORATADINE 10 MG TABLET PO SCH (08:31)
[2018-01-11] MEDS: PANTOPRAZOLE 40 MG TABLET PO SCH (08:31)
[2018-01-11] MEDS: METOPROLOL TARTRATE 50 MG TABLET PO SCH ×2 (09:17→21:20)
[2018-01-11] MEDS: BRIMONIDINE 0.2% OPH SOLN 5 ML BOTTLE BOTH EYES SCH ×2 (10:09→21:20)
[2018-01-11] MEDS: LEVOFLOXACIN 250 MG TABLET PO SCH (16:26)
[2018-01-11] MEDS: ENOXAPARIN 30 MG/0.3 ML SYRINGE SUBCUT SCH (21:20)
[2018-01-12 05:39] LABS: Basophils % 0.5 % (0.0-0.8); Eosinophils # 0.2 10*3/uL (0.0-0.87); Eosinophils % 3.8 % (0.00-10.9); Hematocrit 30.7 VOL% (35.7-47.0); Hemoglobin 10.3 GM/DL (12.0-16.0); Immature Granulocytes % 0.7 %; Immature Granulocytes Absolute 0.03 #; Lymphocytes # 0.7 10*3/uL (1.4-4.0); Lymphocytes % 16.8 % (21.3-54.2); Mean Corpuscular HGB Conc 33.6 GM/DL (32-36); Mean Corpuscular Hemoglobin 30 PG (27-34); Mean Corpuscular Volume 89.2 FL (87-102); Mean Platelet Volume 11.2 FL (9.6-12.0); Monocytes # 0.9 10*3/uL (0.11-0.8); Monocytes % 21.3 % (1.7-12.7); Neutrophils # 2.4 10*3/uL (1.4-7.4); Neutrophils % 56.9 % (38.7-73.9); Platelet Count 144 T/CUMM (130-400); Red Blood Count 3.44 MC/CUMM (3.8-5.5); Red Cell Distribution Width 14.6 % (9.3-17.3); White Blood Count 4.2 T/CUMM (4-12)
[2018-01-12 05:51] LABS: Osmolality,Calculated 271.8 MOS/KG (273-304); Potassium 5.2 MMOL/L (3.5-5.1)
[2018-01-12 06:14] LABS: Eosinophils 3 % (0-10); Hypochromasia 1+; Lymphocytes 23 % (20-55); Segmented Neutrophils 55 % (50-85); Total Cells Counted 100
[2018-01-12 06:15] LABS: Microcytosis 1+; Ovalocytes Slight; Platelet Estimate Adequate
[2018-01-12] MEDS: CALCIUM ACETATE 667 MG CAPSULE PO SCH ×3 (08:59→16:39)
[2018-01-12] MEDS: GABAPENTIN 100 MG CAPSULE PO SCH (08:59)
[2018-01-12] MEDS: PANTOPRAZOLE 40 MG TABLET PO SCH (08:59)
[2018-01-12] MEDS: METOPROLOL TARTRATE 50 MG TABLET PO SCH ×2 (08:59→22:01)
[2018-01-12] MEDS: amLODIPine 10 MG TABLET PO SCH (08:59)
[2018-01-12] MEDS: ASPIRIN EC 81 MG TABLET PO SCH (08:59)
[2018-01-12] MEDS: LORATADINE 10 MG TABLET PO SCH (08:59)
[2018-01-12] MEDS: HYDROXYCHLOROQUINE 200 MG TABLET PO SCH (08:59)
[2018-01-12] MEDS: CLOPIDOGREL 75 MG TABLET PO SCH (08:59)
[2018-01-12] MEDS: BRIMONIDINE 0.2% OPH SOLN 5 ML BOTTLE BOTH EYES SCH ×2 (09:01→22:03)
[2018-01-12] MEDS: LACTOBACILLUS RHAMNOSUS GG CAPSULE PO SCH ×2 (09:18→22:03)
[2018-01-12] MEDS: traMADol 50 MG TABLET PO PRN (09:21)
[2018-01-12] MEDS: LEVOFLOXACIN 250 MG TABLET PO SCH (16:39)
[2018-01-12] MEDS: ENOXAPARIN 30 MG/0.3 ML SYRINGE SUBCUT SCH (22:01)
[2018-01-13] MEDS: traMADol 50 MG TABLET PO PRN ×2 (00:03→07:25)
[2018-01-13 04:21] LABS: Basophils % 0.5 % (0.0-0.8); Eosinophils # 0.2 10*3/uL (0.0-0.87); Eosinophils % 3.8 % (0.00-10.9); Hematocrit 28.9 VOL% (35.7-47.0); Hemoglobin 9.7 GM/DL (12.0-16.0); Immature Granulocytes % 0.7 %; Immature Granulocytes Absolute 0.03 #; Lymphocytes # 0.7 10*3/uL (1.4-4.0); Lymphocytes % 16.8 % (21.3-54.2); Mean Corpuscular HGB Conc 33.6 GM/DL (32-36); Mean Corpuscular Hemoglobin 30 PG (27-34); Mean Corpuscular Volume 89.8 FL (87-102); Mean Platelet Volume 11.5 FL (9.6-12.0); Monocytes # 0.9 10*3/uL (0.11-0.8); Monocytes % 21.9 % (1.7-12.7); Neutrophils # 2.3 10*3/uL (1.4-7.4); Neutrophils % 56.3 % (38.7-73.9); Platelet Count 130 T/CUMM (130-400); Red Blood Count 3.22 MC/CUMM (3.8-5.5); Red Cell Distribution Width 14.4 % (9.3-17.3); White Blood Count 4.2 T/CUMM (4-12)
[2018-01-13 04:36] LABS: Alanine Aminotransferase < 9 U/L (13-56); Albumin 2.9 G/DL (3.4-5.0); Alkaline Phosphatase 126 U/L (45-117); Aspartate Amino Transferase 12 U/L (0-37); Blood Urea Nitrogen 64 MG/DL (7-18); Calcium 8.5 MG/DL (8.5-10.1); Glucose 95 MG/DL (74-106); Osmolality,Calculated 277.8 MOS/KG (273-304); Potassium 5.8 MMOL/L (3.5-5.1); Sodium 130 MMOL/L (136-145); Total Protein 6.8 G/DL (6.4-8.3)
[2018-01-13 04:44] LABS: Eosinophils 2 % (0-10); Giant Platelets Few; Hypochromasia 1+; Lymphocytes 23 % (20-55); Microcytosis Slight; Ovalocytes Slight; Platelet Estimate Normal; Segmented Neutrophils 51 % (50-85); Total Cells Counted 100
[2018-01-13] MEDS: ONDANSETRON 4 MG/2 ML VIAL IV PRN (07:24)
[2018-01-13] MEDS: GABAPENTIN 100 MG CAPSULE PO SCH (08:39)
[2018-01-13] MEDS: HYDROXYCHLOROQUINE 200 MG TABLET PO SCH (08:39)
[2018-01-13] MEDS: LACTOBACILLUS RHAMNOSUS GG CAPSULE PO SCH (08:39)
[2018-01-13] MEDS: PANTOPRAZOLE 40 MG TABLET PO SCH (08:39)
[2018-01-13] MEDS: LORATADINE 10 MG TABLET PO SCH (08:39)
[2018-01-13] MEDS: CLOPIDOGREL 75 MG TABLET PO SCH (08:39)
[2018-01-13] MEDS: METOPROLOL TARTRATE 50 MG TABLET PO SCH (08:39)
[2018-01-13] MEDS: CALCIUM ACETATE 667 MG CAPSULE PO SCH ×3 (08:39→16:29)
[2018-01-13] MEDS: ASPIRIN EC 81 MG TABLET PO SCH (08:39)
[2018-01-13] MEDS: amLODIPine 10 MG TABLET PO SCH (08:39)
[2018-01-13] MEDS: BRIMONIDINE 0.2% OPH SOLN 5 ML BOTTLE BOTH EYES SCH (08:39)
[2018-01-13 16:30] VITALS: BP 177/63
== END 2018-01-13 19:21 | disposition home or self-care (01) | DRG 291 ==
LOC: EDBD → EDUNIT# → N.ED 18:24 → N.EDINP 20:44 → SUATTDRO 20:44 → N.5E 21:33 → N.TELES 22:03
PROVIDERS: ADMIT Internal Medicine Geriatric Medicine; ATTEND Internal Medicine Cardiovascular Disease

== ENCOUNTER 2018-05-13 20:40 | Inpatient (IN) ==
[2018-05-19 14:26] VITALS: BP 138/76
== END 2018-05-19 15:30 | DRG 535 ==
LOC: EDBD → EDUNIT# → N.ED 20:40 → N.EDINP 20:40 → N.5E 05-14 00:43 → SUATTDRO 05-14 10:22
PROVIDERS: ADMIT Internal Medicine; ATTEND Family Medicine

== ENCOUNTER 2018-10-18 14:02 | Inpatient (IN) ==
[2018-10-18] MEDS ORDERED: KETOROLAC 30 MG/1 ML VIAL IV STA (14:27)
[2018-10-18] MEDS ORDERED: SODIUM CHLORIDE 0.9% 1,000 ML IV STA (14:27)
[2018-10-18] MEDS ORDERED: ONDANSETRON 4 MG/2 ML VIAL IV STA (14:27)
[2018-10-18 16:37] LABS: Basophils % 0.1 % (0.0-0.8); Eosinophils # 0.1 10*3/uL (0.0-0.87); Eosinophils % 0.7 % (0.00-10.9); Hematocrit 42.6 VOL% (35.7-47.0); Immature Granulocytes % 0.3 %; Immature Granulocytes Absolute 0.03 #; Lymphocytes # 0.2 10*3/uL (1.4-4.0); Lymphocytes % 2.5 % (21.3-54.2); Mean Corpuscular HGB Conc 29.8 GM/DL (32-36); Mean Corpuscular Hemoglobin 28 PG (27-34); Mean Corpuscular Volume 92.2 FL (87-102); Mean Platelet Volume 10.7 FL (9.6-12.0); Monocytes # 0.2 10*3/uL (0.11-0.8); Monocytes % 1.8 % (1.7-12.7); NRBC # 0.03 10*3/uL; Neutrophils # 8.4 10*3/uL (1.4-7.4); Neutrophils % 94.6 % (38.7-73.9); Platelet Count 208 T/CUMM (130-400); Red Blood Count 4.62 MC/CUMM (3.8-5.5); Red Cell Distribution Width 16.3 % (9.3-17.3); White Blood Count 8.8 T/CUMM (4-12)
[2018-10-18 16:40] LABS: Hemoglobin 12.7 GM/DL (12.0-16.0)
[2018-10-18 16:45] LABS: Albumin 3.8 G/DL (3.4-5.0); Bilirubin,Total 0.8 MG/DL (0.2-1.0); Calcium 8.8 MG/DL (8.5-10.1); Osmolality,Calculated 270.4 MOS/KG (273-304); Total Protein 8.6 G/DL (6.4-8.3)
[2018-10-18] MEDS ORDERED: LORazepam 2 MG/1 ML VIAL IV STA (18:59)
[2018-10-18] MEDS: DEXTROSE 5% LACTATED RINGERS 1,000 ML IV SCH (22:55)
[2018-10-19] MEDS: DEXTROSE 5% LACTATED RINGERS 1,000 ML IV SCH (06:54)
[2018-10-19] MEDS: ONDANSETRON 4 MG/2 ML VIAL IV PRN (11:10)
[2018-10-19] MEDS: PANTOPRAZOLE 40 MG VIAL IV SCH (11:17)
[2018-10-19] MEDS: MORPHINE 4 MG/1 ML VIAL IV PRN (11:25)
[2018-10-20] MEDS: MORPHINE 4 MG/1 ML VIAL IV PRN ×3 (00:42→21:07)
[2018-10-20] MEDS: PANTOPRAZOLE 40 MG VIAL IV SCH (09:01)
[2018-10-20 10:57] LABS: Basophils % 0.1 % (0.0-0.8); Eosinophils # 0.2 10*3/uL (0.0-0.87); Eosinophils % 2.1 % (0.00-10.9); Hematocrit 37.2 VOL% (35.7-47.0); Hemoglobin 11.3 GM/DL (12.0-16.0); Immature Granulocytes % 0.6 %; Immature Granulocytes Absolute 0.05 #; Lymphocytes # 1.2 10*3/uL (1.4-4.0); Lymphocytes % 14.5 % (21.3-54.2); Mean Corpuscular HGB Conc 30.4 GM/DL (32-36); Mean Corpuscular Hemoglobin 28 PG (27-34); Mean Corpuscular Volume 90.5 FL (87-102); Mean Platelet Volume 10.4 FL (9.6-12.0); Monocytes # 1.5 10*3/uL (0.11-0.8); Monocytes % 18.5 % (1.7-12.7); Neutrophils # 5.1 10*3/uL (1.4-7.4); Neutrophils % 64.2 % (38.7-73.9); Platelet Count 208 T/CUMM (130-400); Red Blood Count 4.11 MC/CUMM (3.8-5.5); Red Cell Distribution Width 15.9 % (9.3-17.3); White Blood Count 7.9 T/CUMM (4-12)
[2018-10-20 11:20] LABS: Eosinophils 2 % (0-10); Hypochromasia 1+; Lymphocytes 13 % (20-55); Ovalocytes Slight; Platelet Estimate Adequate; Segmented Neutrophils 67 % (50-85); Total Cells Counted 100
[2018-10-20 11:21] LABS: Microcytosis Slight
[2018-10-20 11:33] LABS: Albumin 2.9 G/DL (3.4-5.0); Bilirubin,Total 0.4 MG/DL (0.2-1.0); Calcium 8.4 MG/DL (8.5-10.1); Osmolality,Calculated 286.5 MOS/KG (273-304); Potassium 3.5 MMOL/L (3.5-5.1); Total Protein 7.5 G/DL (6.4-8.3)
[2018-10-20] MEDS: metroNIDAZOLE INJ 500 MG in PREMIX 1 EACH IV SCH ×2 (12:25→17:01)
[2018-10-20] MEDS: CALCIUM ACETATE 667 MG CAPSULE PO SCH ×2 (12:25→15:47)
[2018-10-20] MEDS ORDERED: ADENOSINE 6 MG/2 ML VIAL IV ONE ×2 (12:30→13:00)
[2018-10-20] MEDS ORDERED: ADENOSINE 6 MG/2 ML VIAL ONE (13:00)
[2018-10-20] MEDS ORDERED: METOPROLOL TARTRATE 5 MG/5 ML VIAL IV ONE (13:28)
[2018-10-20] MEDS: CIPROFLOXACIN INJ 400 MG in PREMIX 1 EACH IV SCH (14:05)
[2018-10-20 14:39] LABS: Basophils % 0.2 % (0.0-0.8); Eosinophils # 0.1 10*3/uL (0.0-0.87); Eosinophils % 1.4 % (0.00-10.9); Hematocrit 26.8 VOL% (35.7-47.0); Immature Granulocytes % 0.5 %; Immature Granulocytes Absolute 0.03 #; Lymphocytes # 0.3 10*3/uL (1.4-4.0); Lymphocytes % 5.3 % (21.3-54.2); Mean Corpuscular HGB Conc 29.9 GM/DL (32-36); Mean Corpuscular Hemoglobin 28 PG (27-34); Mean Corpuscular Volume 92.7 FL (87-102); Mean Platelet Volume 10.4 FL (9.6-12.0); Monocytes # 0.8 10*3/uL (0.11-0.8); Monocytes % 14.1 % (1.7-12.7); Neutrophils # 4.5 10*3/uL (1.4-7.4); Neutrophils % 78.5 % (38.7-73.9); Platelet Count 139 T/CUMM (130-400); Red Blood Count 2.89 MC/CUMM (3.8-5.5); Red Cell Distribution Width 15.9 % (9.3-17.3); White Blood Count 5.7 T/CUMM (4-12)
[2018-10-20] MEDS ORDERED: GLUCAGON 1 MG VIAL IM PRN (15:16)
[2018-10-20] MEDS ORDERED: DEXTROSE 50% 25 GM/50 ML SYRINGE IV PRN (15:16)
[2018-10-20] MEDS: INSULIN LISPRO 100 UNIT/ML SUBCUT SCH (15:47)
[2018-10-20 17:15] LABS: Alanine Aminotransferase 14 U/L (13-56); Albumin 2.2 G/DL (3.4-5.0); Alkaline Phosphatase 112 U/L (45-117); Aspartate Amino Transferase 28 U/L (0-37); Bilirubin,Total < 0.39 MG/DL (0.2-1.0); Blood Urea Nitrogen 46 MG/DL (7-18); Calcium 7.5 MG/DL (8.5-10.1); Glucose 110 MG/DL (74-106); Osmolality,Calculated 289.5 MOS/KG (273-304); Potassium 3.8 MMOL/L (3.5-5.1); Sodium 139 MMOL/L (136-145); Total Protein 6.3 G/DL (6.4-8.3)
[2018-10-20] MEDS: GABAPENTIN 100 MG CAPSULE PO SCH (18:25)
[2018-10-20] MEDS: METOPROLOL TARTRATE 25 MG TABLET PO SCH (20:54)
[2018-10-20] MEDS: LORATADINE 10 MG TABLET PO SCH (20:54)
[2018-10-20] MEDS: DOCUSATE SODIUM 100 MG CAPSULE PO SCH (20:54)
[2018-10-20] MEDS: BRIMONIDINE 0.15% OPH SOLN 1 DROP/DROPS BOTTLE BOTH EYES SCH (22:00)
[2018-10-21] MEDS: INSULIN LISPRO 100 UNIT/ML SUBCUT SCH ×5 (00:27→20:42)
[2018-10-21] MEDS: metroNIDAZOLE INJ 500 MG in PREMIX 1 EACH IV SCH ×5 (02:00→23:58)
[2018-10-21 05:59] LABS: Hepatitis B Surface Ag Quant < 0.10 Index; Hepatitis B Surface Ag Result Negative (Negative)
[2018-10-21] MEDS: CALCIUM ACETATE 667 MG CAPSULE PO SCH ×3 (08:18→16:23)
[2018-10-21] MEDS: CINACALCET 30 MG TABLET PO SCH (08:18)
[2018-10-21] MEDS: PANTOPRAZOLE 40 MG TABLET PO SCH (08:18)
[2018-10-21] MEDS: MULTIVITAMIN (BEROCCA) TABLET PO SCH (08:18)
[2018-10-21] MEDS: DOCUSATE SODIUM 100 MG CAPSULE PO SCH ×2 (08:19→21:06)
[2018-10-21] MEDS: BRIMONIDINE 0.15% OPH SOLN 1 DROP/DROPS BOTTLE BOTH EYES SCH ×2 (08:19→21:06)
[2018-10-21] MEDS: HYDROXYCHLOROQUINE 200 MG TABLET PO SCH (08:19)
[2018-10-21] MEDS: METOPROLOL TARTRATE 25 MG TABLET PO SCH ×2 (08:19→18:04)
[2018-10-21] MEDS: GABAPENTIN 100 MG CAPSULE PO SCH ×2 (08:26→18:32)
[2018-10-21] MEDS: VERAPAMIL SR 180 MG TABLET PO SCH (08:35)
[2018-10-21] MEDS: MORPHINE 4 MG/1 ML VIAL IV PRN ×2 (08:35→21:05)
[2018-10-21] MEDS ORDERED: CLOPIDOGREL 75 MG TABLET PO SCH (09:00)
[2018-10-21] MEDS ORDERED: ASPIRIN EC 81 MG TABLET PO SCH (09:00)
[2018-10-21] MEDS ORDERED: LISINOPRIL 20 MG TABLET PO SCH (09:00)
[2018-10-21] MEDS: CIPROFLOXACIN INJ 400 MG in PREMIX 1 EACH IV SCH (14:58)
[2018-10-21] MEDS: LORATADINE 10 MG TABLET PO SCH (21:06)
[2018-10-22 05:15] LABS: Basophils % 0.2 % (0.0-0.8); Eosinophils # 0.2 10*3/uL (0.0-0.87); Eosinophils % 4.5 % (0.00-10.9); Hematocrit 29.7 VOL% (35.7-47.0); Hemoglobin 9.2 GM/DL (12.0-16.0); Immature Granulocytes % 0.4 %; Immature Granulocytes Absolute 0.02 #; Lymphocytes # 0.5 10*3/uL (1.4-4.0); Lymphocytes % 12.1 % (21.3-54.2); Mean Corpuscular Hemoglobin 28 PG (27-34); Mean Corpuscular Volume 88.7 FL (87-102); Mean Platelet Volume 10.6 FL (9.6-12.0); Monocytes # 0.8 10*3/uL (0.11-0.8); Monocytes % 18.2 % (1.7-12.7); Neutrophils # 2.9 10*3/uL (1.4-7.4); Neutrophils % 64.6 % (38.7-73.9); Platelet Count 146 T/CUMM (130-400); Red Blood Count 3.35 MC/CUMM (3.8-5.5); Red Cell Distribution Width 14.9 % (9.3-17.3); White Blood Count 4.5 T/CUMM (4-12)
[2018-10-22 05:27] LABS: Calcium 8.2 MG/DL (8.5-10.1); Osmolality,Calculated 274.4 MOS/KG (273-304)
[2018-10-22 06:02] LABS: Eosinophils 4 % (0-10); Hypochromasia 1+; Lymphocytes 12 % (20-55); Microcytosis Slight; Platelet Estimate Adequate; Segmented Neutrophils 64 % (50-85); Total Cells Counted 100
[2018-10-22] MEDS: metroNIDAZOLE INJ 500 MG in PREMIX 1 EACH IV SCH ×3 (06:08→21:50)
[2018-10-22] MEDS ORDERED: MAGNESIUM SULF RIDER 2 GM in PREMIX 1 EACH IV ONE ×2 (07:42→17:00)
[2018-10-22] MEDS: MORPHINE 4 MG/1 ML VIAL IV PRN (07:52)
[2018-10-22] MEDS ORDERED: DIPHENOXYLATE/ATROPINE 2.5-0.025 MG TABLET PO PRN (12:02)
[2018-10-22] MEDS: BRIMONIDINE 0.15% OPH SOLN 1 DROP/DROPS BOTTLE BOTH EYES SCH ×2 (12:41→21:51)
[2018-10-22] MEDS: DOCUSATE SODIUM 100 MG CAPSULE PO SCH ×2 (15:09→21:59)
[2018-10-22] MEDS: PANTOPRAZOLE 40 MG TABLET PO SCH (15:09)
[2018-10-22] MEDS: METOPROLOL TARTRATE 25 MG TABLET PO SCH ×2 (15:09→21:52)
[2018-10-22] MEDS: MULTIVITAMIN (BEROCCA) TABLET PO SCH (15:10)
[2018-10-22] MEDS: HYDROXYCHLOROQUINE 200 MG TABLET PO SCH (15:10)
[2018-10-22] MEDS: VERAPAMIL SR 180 MG TABLET PO SCH (15:11)
[2018-10-22] MEDS: CINACALCET 30 MG TABLET PO SCH (15:11)
[2018-10-22] MEDS: INSULIN LISPRO 100 UNIT/ML SUBCUT SCH ×3 (15:20→21:59)
[2018-10-22] MEDS: CALCIUM ACETATE 667 MG CAPSULE PO SCH ×2 (15:21→16:24)
[2018-10-22] MEDS: GABAPENTIN 100 MG CAPSULE PO SCH ×2 (15:23→19:16)
[2018-10-22] MEDS: CIPROFLOXACIN INJ 400 MG in PREMIX 1 EACH IV SCH (16:29)
[2018-10-22] MEDS: LORATADINE 10 MG TABLET PO SCH (21:52)
[2018-10-23] MEDS: metroNIDAZOLE INJ 500 MG in PREMIX 1 EACH IV SCH ×2 (03:13→08:52)
[2018-10-23 05:21] LABS: Calcium 8.3 MG/DL (8.5-10.1); Osmolality,Calculated 269.4 MOS/KG (273-304); Potassium 4.2 MMOL/L (3.5-5.1)
[2018-10-23] MEDS: INSULIN LISPRO 100 UNIT/ML SUBCUT SCH ×4 (07:49→22:16)
[2018-10-23] MEDS: MORPHINE 4 MG/1 ML VIAL IV PRN ×2 (08:43→21:27)
[2018-10-23] MEDS: CALCIUM ACETATE 667 MG CAPSULE PO SCH ×3 (08:48→17:03)
[2018-10-23] MEDS: VERAPAMIL SR 180 MG TABLET PO SCH (08:49)
[2018-10-23] MEDS: DOCUSATE SODIUM 100 MG CAPSULE PO SCH ×2 (08:49→21:01)
[2018-10-23] MEDS: MULTIVITAMIN (BEROCCA) TABLET PO SCH (08:49)
[2018-10-23] MEDS: PANTOPRAZOLE 40 MG TABLET PO SCH (08:50)
[2018-10-23] MEDS: HYDROXYCHLOROQUINE 200 MG TABLET PO SCH (08:50)
[2018-10-23] MEDS: GABAPENTIN 100 MG CAPSULE PO SCH ×2 (08:50→18:44)
[2018-10-23] MEDS: METOPROLOL TARTRATE 25 MG TABLET PO SCH ×2 (08:50→21:03)
[2018-10-23] MEDS: BRIMONIDINE 0.15% OPH SOLN 1 DROP/DROPS BOTTLE BOTH EYES SCH ×2 (09:01→21:04)
[2018-10-23] MEDS: CINACALCET 30 MG TABLET PO SCH (17:04)
[2018-10-23] MEDS: LORATADINE 10 MG TABLET PO SCH (21:04)
[2018-10-23] MEDS: ONDANSETRON 4 MG/2 ML VIAL IV PRN (21:05)
[2018-10-24] MEDS: INSULIN LISPRO 100 UNIT/ML SUBCUT SCH ×4 (07:32→22:40)
[2018-10-24] MEDS: CALCIUM ACETATE 667 MG CAPSULE PO SCH ×3 (07:51→16:36)
[2018-10-24] MEDS: DOCUSATE SODIUM 100 MG CAPSULE PO SCH ×2 (09:00→22:40)
[2018-10-24] MEDS: CINACALCET 30 MG TABLET PO SCH (09:00)
[2018-10-24] MEDS: BRIMONIDINE 0.15% OPH SOLN 1 DROP/DROPS BOTTLE BOTH EYES SCH ×2 (10:24→22:32)
[2018-10-24 12:59] LABS: Calcium 7.9 MG/DL (8.5-10.1); Osmolality,Calculated 276.2 MOS/KG (273-304); Potassium 4.2 MMOL/L (3.5-5.1)
[2018-10-24] MEDS: MULTIVITAMIN (BEROCCA) TABLET PO SCH (16:34)
[2018-10-24] MEDS: METOPROLOL TARTRATE 25 MG TABLET PO SCH ×2 (16:35→22:35)
[2018-10-24] MEDS: HYDROXYCHLOROQUINE 200 MG TABLET PO SCH (16:35)
[2018-10-24] MEDS: VERAPAMIL SR 180 MG TABLET PO SCH (16:35)
[2018-10-24] MEDS: PANTOPRAZOLE 40 MG TABLET PO SCH (16:35)
[2018-10-24] MEDS: GABAPENTIN 100 MG CAPSULE PO SCH ×2 (16:35→22:32)
[2018-10-24] MEDS: MORPHINE 4 MG/1 ML VIAL IV PRN (16:38)
[2018-10-24] MEDS ORDERED: CINACALCET 30 MG TABLET PO SCH (17:00)
[2018-10-24] MEDS ORDERED: ZALEPLON 5 MG CAPSULE PO PRN (22:05)
[2018-10-24] MEDS: LORATADINE 10 MG TABLET PO SCH (22:32)
[2018-10-25] MEDS: ONDANSETRON 4 MG/2 ML VIAL IV PRN (01:10)
[2018-10-25] MEDS: MORPHINE 4 MG/1 ML VIAL IV PRN ×2 (01:10→11:12)
[2018-10-25] MEDS: INSULIN LISPRO 100 UNIT/ML SUBCUT SCH ×2 (07:14→11:35)
[2018-10-25] MEDS: CALCIUM ACETATE 667 MG CAPSULE PO SCH ×2 (09:11→12:06)
[2018-10-25] MEDS: DOCUSATE SODIUM 100 MG CAPSULE PO SCH (09:12)
[2018-10-25] MEDS: METOPROLOL TARTRATE 25 MG TABLET PO SCH (09:12)
[2018-10-25] MEDS: MULTIVITAMIN (BEROCCA) TABLET PO SCH (09:12)
[2018-10-25] MEDS: VERAPAMIL SR 180 MG TABLET PO SCH (09:12)
[2018-10-25] MEDS: BRIMONIDINE 0.15% OPH SOLN 1 DROP/DROPS BOTTLE BOTH EYES SCH (09:12)
[2018-10-25] MEDS: GABAPENTIN 100 MG CAPSULE PO SCH (09:13)
[2018-10-25] MEDS: PANTOPRAZOLE 40 MG TABLET PO SCH (09:13)
[2018-10-25] MEDS: HYDROXYCHLOROQUINE 200 MG TABLET PO SCH (09:13)
[2018-10-25 12:22] VITALS: BP 115/56
== END 2018-10-25 14:35 | disposition home or self-care (01) | DRG 388 ==
LOC: EDUNIT# → EDBD → N.EDINP 14:02 → N.ED 14:02 → N.3E 20:40 → SUATTDRO 10-19 14:46 → N.ICU 10-20 13:29 → N.3E 10-22 08:47
PROVIDERS: ADMIT Surgery; ATTEND Internal Medicine

== ENCOUNTER 2019-01-12 12:57 | Inpatient (IN) ==
[2019-01-12 14:48] LABS: Basophils % 0.1 % (0.0-0.8); Eosinophils # 0.1 10*3/uL (0.0-0.87); Eosinophils % 0.5 % (0.00-10.9); Hematocrit 35.4 VOL% (35.7-47.0); Immature Granulocytes % 0.7 %; Immature Granulocytes Absolute 0.07 #; Lymphocytes # 0.7 10*3/uL (1.4-4.0); Lymphocytes % 6.9 % (21.3-54.2); Mean Corpuscular HGB Conc 31.1 GM/DL (32-36); Mean Corpuscular Hemoglobin 27 PG (27-34); Mean Corpuscular Volume 86.8 FL (87-102); Mean Platelet Volume 10.6 FL (9.6-12.0); Monocytes # 1.4 10*3/uL (0.11-0.8); Monocytes % 14.1 % (1.7-12.7); Neutrophils # 7.7 10*3/uL (1.4-7.4); Neutrophils % 77.7 % (38.7-73.9); Platelet Count 160 T/CUMM (130-400); Red Blood Count 4.08 MC/CUMM (3.8-5.5); Red Cell Distribution Width 15.9 % (9.3-17.3); White Blood Count 9.9 T/CUMM (4-12)
[2019-01-12 14:58] LABS: INR 1.1; PT Patient Result 11.7 SECS; Partial Thromboplastin Time 32.9 SECS (0-40)
[2019-01-12 15:06] LABS: Alanine Aminotransferase 20 U/L (13-56); Albumin 2.8 G/DL (3.4-5.0); Alkaline Phosphatase 128 U/L (45-117); Aspartate Amino Transferase 21 U/L (0-37); Blood Urea Nitrogen 71 MG/DL (7-18); Calcium 6.4 MG/DL (8.5-10.1); Glucose 88 MG/DL (74-106); Osmolality,Calculated 283.5 MOS/KG (273-304); Potassium 4.5 MMOL/L (3.5-5.1); Sodium 132 MMOL/L (136-145); Total Protein 8.1 G/DL (6.4-8.3)
[2019-01-12 15:09] LABS: Troponin I 0.134 NG/ML (0.00-0.045)
[2019-01-12] MEDS ORDERED: CALCIUM GLUCONATE 2,000 MG in SODIUM CHLORIDE 0.9% 100 ML IV ONE (15:28)
[2019-01-12] MEDS ORDERED: GLUCAGON 1 MG VIAL IM PRN (16:11)
[2019-01-12] MEDS ORDERED: ONDANSETRON 4 MG/2 ML VIAL IV PRN (16:11)
[2019-01-12] MEDS ORDERED: KETOROLAC 30 MG/1 ML VIAL IV STA (16:27)
[2019-01-12] MEDS ORDERED: SODIUM CHLORIDE 0.9% 1,000 ML IV SCH (16:30)
[2019-01-12 20:31] LABS: Parathyroid Hormone Intact 670.6 PG/ML (18.4-80.1)
[2019-01-12] MEDS ORDERED: DEXTROSE 5% NACL 0.45% 1,000 ML IV SCH (21:00)
[2019-01-12] MEDS ORDERED: METOPROLOL TARTRATE 25 MG TABLET PO SCH (21:00)
[2019-01-12] MEDS ORDERED: CALCIUM GLUCONATE 1,000 MG in SODIUM CHLORIDE 0.9% 100 ML IV ONE (21:00)
[2019-01-12] MEDS: CALCITRIOL 0.25 MCG CAPSULE PO SCH (21:09)
[2019-01-12] MEDS: DEXTROSE 10% 500 ML IV SCH (21:10)
[2019-01-13] MEDS ORDERED: LORazepam 2 MG/1 ML VIAL ONE ×2 (03:49→03:56)
[2019-01-13] MEDS ORDERED: LORazepam 2 MG/1 ML VIAL IV PRN (03:55)
[2019-01-13] MEDS ORDERED: SODIUM CHLORIDE 0.9% 250 ML IV ONE (03:55)
[2019-01-13] MEDS ORDERED: MAGNESIUM SULF RIDER 2 GM in PREMIX 1 EACH IV ONE ×3 (03:55→12:45)
[2019-01-13 04:12] LABS: Basophils % 0.1 % (0.0-0.8); Eosinophils # 0.2 10*3/uL (0.0-0.87); Eosinophils % 1.3 % (0.00-10.9); Hematocrit 33.6 VOL% (35.7-47.0); Hemoglobin 10.5 GM/DL (12.0-16.0); Immature Granulocytes % 0.5 %; Immature Granulocytes Absolute 0.08 #; Lymphocytes # 1.3 10*3/uL (1.4-4.0); Mean Corpuscular HGB Conc 31.3 GM/DL (32-36); Mean Corpuscular Hemoglobin 28 PG (27-34); Monocytes % 6.1 % (1.7-12.7); Neutrophils # 13.2 10*3/uL (1.4-7.4); Platelet Count 199 T/CUMM (130-400); Red Blood Count 3.82 MC/CUMM (3.8-5.5); Red Cell Distribution Width 16.3 % (9.3-17.3); White Blood Count 15.7 T/CUMM (4-12)
[2019-01-13 04:52] LABS: Albumin 2.3 G/DL (3.4-5.0); Bilirubin,Total 0.5 MG/DL (0.2-1.0); Calcium 6.5 MG/DL (8.5-10.1); Osmolality,Calculated 282.7 MOS/KG (273-304); Potassium 4.5 MMOL/L (3.5-5.1); Risk Ratio 2.38; Thyroid Stimulating Hormone 0.72 uIU/ml (0.358-3.74); Total Protein 6.9 G/DL (6.4-8.3)
[2019-01-13 04:59] LABS: Troponin I 0.088 NG/ML (0.00-0.045)
[2019-01-13] MEDS ORDERED: CALCIUM GLUCONATE 2,000 MG in SODIUM CHLORIDE 0.9% 100 ML IV ONE ×2 (07:28→12:45)
[2019-01-13] MEDS ORDERED: LISINOPRIL 20 MG TABLET PO SCH (09:00)
[2019-01-13] MEDS: CALCITRIOL 0.25 MCG CAPSULE PO SCH ×2 (10:18→20:53)
[2019-01-13] MEDS: ASPIRIN EC 81 MG TABLET PO SCH (10:18)
[2019-01-13] MEDS: PANTOPRAZOLE 40 MG TABLET PO SCH (10:18)
[2019-01-13] MEDS: HYDROXYCHLOROQUINE 200 MG TABLET PO SCH (10:18)
[2019-01-13] MEDS: CLOPIDOGREL 75 MG TABLET PO SCH (10:18)
[2019-01-13] MEDS: CALCIUM ACETATE 667 MG CAPSULE PO SCH ×3 (10:19→17:03)
[2019-01-13] MEDS: DEXTROSE 10% 500 ML IV SCH (10:21)
[2019-01-13] MEDS: HEPARIN 5,000 UNIT/1 ML VIAL SUBCUT SCH ×3 (10:23→22:53)
[2019-01-13] MEDS: DEXTROSE 50% 25 GM/50 ML VIAL IV PRN ×4 (11:32→15:37)
[2019-01-13 12:14] LABS: Calcium 6.4 MG/DL (8.5-10.1)
[2019-01-13] MEDS ORDERED: DEXTROSE 50% 25 GM/50 ML VIAL IV ONE ×2 (15:25→15:50)
[2019-01-13] MEDS ORDERED: CINACALCET 30 MG TABLET PO SCH (16:30)
[2019-01-13 18:22] LABS: Calcium 7.5 MG/DL (8.5-10.1)
[2019-01-13] MEDS: DEXTROSE 50% 25 GM/50 ML SYRINGE IV PRN ×2 (18:25→19:20)
[2019-01-13] MEDS: LORATADINE 10 MG TABLET PO SCH (20:52)
[2019-01-13] MEDS: BRIMONIDINE 0.2% OPH SOLN 5 ML BOTTLE BOTH EYES SCH (22:54)
[2019-01-13] MEDS ORDERED: NOREPINEPHRINE 8 MG in SODIUM CHLORIDE 0.9% 242 ML IV PRN (23:12)
[2019-01-13] MEDS ORDERED: NOREPINEPHRINE 4 MG/4 ML VIAL IV ONE (23:46)
[2019-01-14] MEDS: DEXTROSE 10% 500 ML IV SCH ×2 (01:08→07:52)
[2019-01-14 05:35] LABS: Basophils % 0.2 % (0.0-0.8); Eosinophils # 0.1 10*3/uL (0.0-0.87); Eosinophils % 0.7 % (0.00-10.9); Hematocrit 31.2 VOL% (35.7-47.0); Hemoglobin 9.8 GM/DL (12.0-16.0); Immature Granulocytes Absolute 0.14 #; Lymphocytes # 0.5 10*3/uL (1.4-4.0); Lymphocytes % 3.7 % (21.3-54.2); Mean Corpuscular HGB Conc 31.4 GM/DL (32-36); Mean Corpuscular Hemoglobin 28 PG (27-34); Mean Corpuscular Volume 87.6 FL (87-102); Mean Platelet Volume 10.9 FL (9.6-12.0); Monocytes # 1.6 10*3/uL (0.11-0.8); Monocytes % 11.9 % (1.7-12.7); Neutrophils # 11.2 10*3/uL (1.4-7.4); Neutrophils % 82.5 % (38.7-73.9); Platelet Count 162 T/CUMM (130-400); Red Blood Count 3.56 MC/CUMM (3.8-5.5); Red Cell Distribution Width 15.9 % (9.3-17.3); White Blood Count 13.6 T/CUMM (4-12)
[2019-01-14 05:57] LABS: Albumin 2.2 G/DL (3.4-5.0); Bilirubin,Total 1.1 MG/DL (0.2-1.0); Calcium 6.9 MG/DL (8.5-10.1); Osmolality,Calculated 283.4 MOS/KG (273-304); Potassium 5.2 MMOL/L (3.5-5.1); Total Protein 6.9 G/DL (6.4-8.3)
[2019-01-14 06:00] LABS: Band Neutrophils 10 % (0-10); Hypochromasia 1+; Lymphocytes 1 % (20-55); Ovalocytes Slight; Platelet Estimate Adequate; Segmented Neutrophils 84 % (50-85); Total Cells Counted 100; Troponin I 0.259 NG/ML (0.00-0.045)
[2019-01-14 06:33] LABS: Troponin I 0.258 NG/ML (0.00-0.045)
[2019-01-14] MEDS ORDERED: CALCIUM GLUCONATE 2,000 MG in SODIUM CHLORIDE 0.9% 100 ML IV ONE (08:37)
[2019-01-14] MEDS: CALCITRIOL 0.25 MCG CAPSULE PO SCH ×2 (08:49→21:04)
[2019-01-14] MEDS: CALCIUM ACETATE 667 MG CAPSULE PO SCH ×3 (08:49→17:16)
[2019-01-14] MEDS: PANTOPRAZOLE 40 MG TABLET PO SCH (08:50)
[2019-01-14] MEDS: CLOPIDOGREL 75 MG TABLET PO SCH (08:50)
[2019-01-14] MEDS: HYDROXYCHLOROQUINE 200 MG TABLET PO SCH (08:50)
[2019-01-14] MEDS: GABAPENTIN 100 MG CAPSULE PO SCH (08:51)
[2019-01-14] MEDS: ASPIRIN EC 81 MG TABLET PO SCH (08:54)
[2019-01-14] MEDS ORDERED: DEXTROSE 5% NACL 0.9% 1,000 ML IV SCH (09:00)
[2019-01-14] MEDS: BRIMONIDINE 0.2% OPH SOLN 5 ML BOTTLE BOTH EYES SCH ×2 (10:42→21:04)
[2019-01-14] MEDS: HEPARIN 5,000 UNIT/1 ML VIAL SUBCUT SCH ×2 (10:54→21:05)
[2019-01-14] MEDS: DEXTROSE 50% 25 GM/50 ML SYRINGE IV PRN (14:00)
[2019-01-14] MEDS ORDERED: HEPARIN 10,000 UNIT/10 ML VIAL IV PRN (16:57)
[2019-01-14] MEDS: LORATADINE 10 MG TABLET PO SCH (21:04)
[2019-01-15] MEDS: traMADol 50 MG TABLET PO PRN (00:18)
[2019-01-15 04:16] LABS: Basophils % 0.2 % (0.0-0.8); Eosinophils # 0.2 10*3/uL (0.0-0.87); Hematocrit 28.3 VOL% (35.7-47.0); Hemoglobin 8.7 GM/DL (12.0-16.0); Immature Granulocytes % 0.8 %; Immature Granulocytes Absolute 0.08 #; Lymphocytes # 0.7 10*3/uL (1.4-4.0); Lymphocytes % 6.5 % (21.3-54.2); Mean Corpuscular HGB Conc 30.7 GM/DL (32-36); Mean Corpuscular Hemoglobin 27 PG (27-34); Mean Corpuscular Volume 86.5 FL (87-102); Mean Platelet Volume 11.2 FL (9.6-12.0); Monocytes # 1.4 10*3/uL (0.11-0.8); Monocytes % 14.1 % (1.7-12.7); Neutrophils # 7.6 10*3/uL (1.4-7.4); Neutrophils % 76.4 % (38.7-73.9); Platelet Count 136 T/CUMM (130-400); Red Blood Count 3.27 MC/CUMM (3.8-5.5); Red Cell Distribution Width 16.2 % (9.3-17.3)
[2019-01-15 04:51] LABS: Albumin 1.8 G/DL (3.4-5.0); Bilirubin,Total 0.6 MG/DL (0.2-1.0); Calcium 7.5 MG/DL (8.5-10.1); Osmolality,Calculated 270.8 MOS/KG (273-304); Potassium 4.7 MMOL/L (3.5-5.1); Total Protein 6.4 G/DL (6.4-8.3)
[2019-01-15 04:52] LABS: Troponin I 0.238 NG/ML (0.00-0.045)
[2019-01-15] MEDS: DEXTROSE 50% 25 GM/50 ML SYRINGE IV PRN ×2 (08:18→08:40)
[2019-01-15] MEDS: HEPARIN 10,000 UNIT/10 ML VIAL IV PRN ×2 (08:27→08:46)
[2019-01-15] MEDS ORDERED: HEPARIN 5,000 UNIT/1 ML VIAL IV PRN (09:30)
[2019-01-15] MEDS: CALCITRIOL 0.25 MCG CAPSULE PO SCH ×2 (09:43→21:24)
[2019-01-15] MEDS: CALCIUM ACETATE 667 MG CAPSULE PO SCH ×3 (09:43→16:39)
[2019-01-15] MEDS: PANTOPRAZOLE 40 MG TABLET PO SCH (09:43)
[2019-01-15] MEDS: GABAPENTIN 100 MG CAPSULE PO SCH (09:43)
[2019-01-15] MEDS: ASPIRIN EC 81 MG TABLET PO SCH (09:43)
[2019-01-15] MEDS: HYDROXYCHLOROQUINE 200 MG TABLET PO SCH (09:43)
[2019-01-15] MEDS: CLOPIDOGREL 75 MG TABLET PO SCH (09:43)
[2019-01-15] MEDS: BRIMONIDINE 0.2% OPH SOLN 5 ML BOTTLE BOTH EYES SCH ×2 (09:44→21:24)
[2019-01-15] MEDS: HEPARIN 5,000 UNIT/1 ML VIAL SUBCUT SCH ×2 (09:44→21:24)
[2019-01-15] MEDS ORDERED: DEXTROSE 10% 1,000 ML IV SCH (10:00)
[2019-01-15] MEDS: HYDROCORTISONE 100 MG VIAL IV SCH ×2 (10:23→18:17)
[2019-01-15] MEDS ORDERED: DEXTROSE 10% 500 ML IV SCH (10:30)
[2019-01-15] MEDS ORDERED: CALCIUM GLUCONATE 2,000 MG in SODIUM CHLORIDE 0.9% 100 ML IV ONE (10:30)
[2019-01-15] MEDS: VERAPAMIL SR 180 MG TABLET PO SCH (14:20)
[2019-01-15] MEDS: SODIUM CHLORIDE 1 GM TABLET PO SCH ×2 (14:20→21:24)
[2019-01-15] MEDS: oxyCODONE IR 5 MG TABLET PO PRN (14:20)
[2019-01-15] MEDS ORDERED: NIFEdipine 10 MG CAPSULE PO PRN (15:27)
[2019-01-15] MEDS: cloNIDine 0.1 MG TABLET PO SCH ×2 (16:39→21:24)
[2019-01-15] MEDS: DEXTROSE 5% 1,000 ML IV SCH (20:07)
[2019-01-15] MEDS ORDERED: METOPROLOL TARTRATE 25 MG TABLET PO SCH (21:00)
[2019-01-15] MEDS: LORATADINE 10 MG TABLET PO SCH (21:24)
[2019-01-16] MEDS: HYDROCORTISONE 100 MG VIAL IV SCH ×2 (02:40→10:24)
[2019-01-16 03:37] LABS: Basophils % 0.1 % (0.0-0.8); Eosinophils % 0.1 % (0.00-10.9); Hemoglobin 6.5 GM/DL (12.0-16.0); Immature Granulocytes Absolute 0.09 #; Lymphocytes # 0.3 10*3/uL (1.4-4.0); Lymphocytes % 3.9 % (21.3-54.2); Mean Corpuscular Hemoglobin 27 PG (27-34); Mean Corpuscular Volume 87.1 FL (87-102); Mean Platelet Volume 10.1 FL (9.6-12.0); Monocytes # 0.6 10*3/uL (0.11-0.8); Monocytes % 6.5 % (1.7-12.7); Neutrophils # 7.8 10*3/uL (1.4-7.4); Neutrophils % 88.4 % (38.7-73.9); Platelet Count 127 T/CUMM (130-400); Red Blood Count 2.41 MC/CUMM (3.8-5.5); Red Cell Distribution Width 15.6 % (9.3-17.3); White Blood Count 8.8 T/CUMM (4-12)
[2019-01-16] MEDS: cloNIDine 0.1 MG TABLET PO SCH ×4 (03:37→21:21)
[2019-01-16 04:04] LABS: Calcium 7.6 MG/DL (8.5-10.1); Osmolality,Calculated 273.5 MOS/KG (273-304); Potassium 5.8 MMOL/L (3.5-5.1)
[2019-01-16 04:05] LABS: Lymphocytes 5 % (20-55); Segmented Neutrophils 93 % (50-85)
[2019-01-16 04:06] LABS: Hypochromasia Slight; Platelet Estimate Normal
[2019-01-16 04:07] LABS: Total Cells Counted 100
[2019-01-16] MEDS: CALCIUM ACETATE 667 MG CAPSULE PO SCH ×3 (10:22→15:33)
[2019-01-16] MEDS: ASPIRIN EC 81 MG TABLET PO SCH (10:22)
[2019-01-16] MEDS: PANTOPRAZOLE 40 MG TABLET PO SCH (10:23)
[2019-01-16] MEDS: CALCITRIOL 0.25 MCG CAPSULE PO SCH ×2 (10:23→20:24)
[2019-01-16] MEDS: MAGNESIUM CHLORIDE 64 MG TABLET PO SCH ×2 (10:23→20:24)
[2019-01-16] MEDS: METOPROLOL SUCCINATE XL 25 MG TABLET PO SCH (10:23)
[2019-01-16] MEDS: HYDROXYCHLOROQUINE 200 MG TABLET PO SCH (10:24)
[2019-01-16] MEDS: HEPARIN 5,000 UNIT/1 ML VIAL SUBCUT SCH ×2 (10:24→22:58)
[2019-01-16] MEDS: CLOPIDOGREL 75 MG TABLET PO SCH (10:24)
[2019-01-16] MEDS: VERAPAMIL SR 180 MG TABLET PO SCH (10:26)
[2019-01-16] MEDS: SODIUM CHLORIDE 1 GM TABLET PO SCH ×3 (10:27→20:25)
[2019-01-16] MEDS: BRIMONIDINE 0.2% OPH SOLN 5 ML BOTTLE BOTH EYES SCH ×2 (10:27→20:24)
[2019-01-16] MEDS: HYDROCORTISONE 10 MG TABLET PO SCH ×2 (13:16→20:24)
[2019-01-16] MEDS: DEXTROSE 5% 1,000 ML IV SCH (16:01)
[2019-01-16] MEDS: LORATADINE 10 MG TABLET PO SCH (20:24)
[2019-01-17] MEDS: cloNIDine 0.1 MG TABLET PO SCH ×4 (05:16→21:02)
[2019-01-17 05:26] LABS: Calcium 7.9 MG/DL (8.5-10.1); Osmolality,Calculated 270.1 MOS/KG (273-304); Potassium 4.7 MMOL/L (3.5-5.1)
[2019-01-17] MEDS: oxyCODONE IR 5 MG TABLET PO PRN ×2 (05:49→20:14)
[2019-01-17 05:59] LABS: Hematocrit 29.2 VOL% (35.7-47.0); Hemoglobin 9.2 GM/DL (12.0-16.0)
[2019-01-17] MEDS: CALCITRIOL 0.25 MCG CAPSULE PO SCH ×2 (08:06→20:14)
[2019-01-17] MEDS: MAGNESIUM CHLORIDE 64 MG TABLET PO SCH ×2 (08:06→20:14)
[2019-01-17] MEDS: HYDROXYCHLOROQUINE 200 MG TABLET PO SCH (08:06)
[2019-01-17] MEDS: VERAPAMIL SR 180 MG TABLET PO SCH (08:06)
[2019-01-17] MEDS: CLOPIDOGREL 75 MG TABLET PO SCH (08:06)
[2019-01-17] MEDS: PANTOPRAZOLE 40 MG TABLET PO SCH (08:06)
[2019-01-17] MEDS: BRIMONIDINE 0.2% OPH SOLN 5 ML BOTTLE BOTH EYES SCH ×2 (08:06→20:15)
[2019-01-17] MEDS: CALCIUM ACETATE 667 MG CAPSULE PO SCH ×3 (08:06→15:47)
[2019-01-17] MEDS: HYDROCORTISONE 10 MG TABLET PO SCH ×2 (08:06→20:14)
[2019-01-17] MEDS: METOPROLOL SUCCINATE XL 25 MG TABLET PO SCH (08:07)
[2019-01-17] MEDS: ASPIRIN EC 81 MG TABLET PO SCH (08:10)
[2019-01-17] MEDS: SODIUM CHLORIDE 1 GM TABLET PO SCH ×3 (08:10→20:15)
[2019-01-17] MEDS: HEPARIN 5,000 UNIT/1 ML VIAL SUBCUT SCH ×2 (09:10→21:17)
[2019-01-17] MEDS: traMADol 50 MG TABLET PO PRN (10:16)
[2019-01-17] MEDS: DEXTROSE 5% 1,000 ML IV SCH (13:15)
[2019-01-17] MEDS: LORATADINE 10 MG TABLET PO SCH (20:14)
[2019-01-17] MEDS: GABAPENTIN 100 MG CAPSULE PO SCH (20:15)
[2019-01-18] MEDS: cloNIDine 0.1 MG TABLET PO SCH ×3 (03:52→21:33)
[2019-01-18 04:57] LABS: Basophils % 0.1 % (0.0-0.8); Eosinophils # 0.1 10*3/uL (0.0-0.87); Eosinophils % 0.5 % (0.00-10.9); Hematocrit 26.5 VOL% (35.7-47.0); Hemoglobin 8.5 GM/DL (12.0-16.0); Immature Granulocytes % 1.2 %; Immature Granulocytes Absolute 0.12 #; Lymphocytes # 0.4 10*3/uL (1.4-4.0); Lymphocytes % 3.8 % (21.3-54.2); Mean Corpuscular HGB Conc 32.1 GM/DL (32-36); Mean Corpuscular Hemoglobin 27 PG (27-34); Mean Corpuscular Volume 85.2 FL (87-102); Mean Platelet Volume 11.6 FL (9.6-12.0); Monocytes # 0.7 10*3/uL (0.11-0.8); Monocytes % 6.9 % (1.7-12.7); Neutrophils # 9.1 10*3/uL (1.4-7.4); Neutrophils % 87.5 % (38.7-73.9); Platelet Count 151 T/CUMM (130-400); Red Blood Count 3.11 MC/CUMM (3.8-5.5); Red Cell Distribution Width 15.2 % (9.3-17.3); White Blood Count 10.4 T/CUMM (4-12)
[2019-01-18 05:25] LABS: Calcium 7.9 MG/DL (8.5-10.1); Osmolality,Calculated 267.2 MOS/KG (273-304); Potassium 4.7 MMOL/L (3.5-5.1)
[2019-01-18 05:31] LABS: Band Neutrophils 1 % (0-10); Lymphocytes 4 % (20-55); Segmented Neutrophils 91 % (50-85); Total Cells Counted 100
[2019-01-18 05:32] LABS: Hypochromasia 1+; Platelet Estimate Adequate
[2019-01-18] MEDS: SODIUM CHLORIDE 1 GM TABLET PO SCH ×3 (08:24→21:34)
[2019-01-18] MEDS: CALCITRIOL 0.25 MCG CAPSULE PO SCH ×2 (08:24→21:35)
[2019-01-18] MEDS: METOPROLOL SUCCINATE XL 25 MG TABLET PO SCH (08:24)
[2019-01-18] MEDS: CALCIUM ACETATE 667 MG CAPSULE PO SCH ×3 (08:24→16:46)
[2019-01-18] MEDS: ASPIRIN EC 81 MG TABLET PO SCH (08:24)
[2019-01-18] MEDS: MAGNESIUM CHLORIDE 64 MG TABLET PO SCH ×2 (08:24→21:35)
[2019-01-18] MEDS: CLOPIDOGREL 75 MG TABLET PO SCH (08:24)
[2019-01-18] MEDS: PANTOPRAZOLE 40 MG TABLET PO SCH (08:25)
[2019-01-18] MEDS: HYDROXYCHLOROQUINE 200 MG TABLET PO SCH (08:25)
[2019-01-18] MEDS: HYDROCORTISONE 10 MG TABLET PO SCH ×2 (08:25→21:34)
[2019-01-18] MEDS: VERAPAMIL SR 180 MG TABLET PO SCH (08:25)
[2019-01-18] MEDS: BRIMONIDINE 0.2% OPH SOLN 5 ML BOTTLE BOTH EYES SCH ×2 (08:30→21:36)
[2019-01-18] MEDS: HEPARIN 5,000 UNIT/1 ML VIAL SUBCUT SCH ×2 (10:58→21:35)
[2019-01-18] MEDS: traMADol 50 MG TABLET PO PRN (14:02)
[2019-01-18] MEDS: GABAPENTIN 100 MG CAPSULE PO SCH (21:34)
[2019-01-18] MEDS: LORATADINE 10 MG TABLET PO SCH (21:35)
[2019-01-18] MEDS: oxyCODONE IR 5 MG TABLET PO PRN (21:50)
[2019-01-19 05:34] LABS: Basophils % 0.1 % (0.0-0.8); Eosinophils # 0.1 10*3/uL (0.0-0.87); Eosinophils % 0.8 % (0.00-10.9); Hematocrit 25.9 VOL% (35.7-47.0); Hemoglobin 8.2 GM/DL (12.0-16.0); Immature Granulocytes Absolute 0.09 #; Lymphocytes # 0.2 10*3/uL (1.4-4.0); Lymphocytes % 2.5 % (21.3-54.2); Mean Corpuscular HGB Conc 31.7 GM/DL (32-36); Mean Corpuscular Hemoglobin 27 PG (27-34); Mean Corpuscular Volume 85.2 FL (87-102); Mean Platelet Volume 10.6 FL (9.6-12.0); Monocytes # 0.6 10*3/uL (0.11-0.8); Monocytes % 6.3 % (1.7-12.7); Neutrophils # 8.3 10*3/uL (1.4-7.4); Neutrophils % 89.3 % (38.7-73.9); Platelet Count 160 T/CUMM (130-400); Red Blood Count 3.04 MC/CUMM (3.8-5.5); Red Cell Distribution Width 15.3 % (9.3-17.3); White Blood Count 9.3 T/CUMM (4-12)
[2019-01-19 05:50] LABS: Calcium 8.2 MG/DL (8.5-10.1); Osmolality,Calculated 270.4 MOS/KG (273-304); Potassium 5.2 MMOL/L (3.5-5.1)
[2019-01-19 06:06] LABS: Band Neutrophils 6 % (0-10); Eosinophils 2 % (0-10); Lymphocytes 4 % (20-55); Segmented Neutrophils 81 % (50-85); Total Cells Counted 100
[2019-01-19 06:07] LABS: Hypochromasia 1+; Ovalocytes Slight; Platelet Estimate Adequate
[2019-01-19] MEDS: cloNIDine 0.1 MG TABLET PO SCH ×5 (06:14→22:05)
[2019-01-19] MEDS: HYDROXYCHLOROQUINE 200 MG TABLET PO SCH (08:30)
[2019-01-19] MEDS: MAGNESIUM CHLORIDE 64 MG TABLET PO SCH ×2 (08:30→22:03)
[2019-01-19] MEDS: HYDROCORTISONE 10 MG TABLET PO SCH ×2 (08:30→22:03)
[2019-01-19] MEDS: ASPIRIN EC 81 MG TABLET PO SCH (08:30)
[2019-01-19] MEDS: CALCITRIOL 0.25 MCG CAPSULE PO SCH ×2 (08:30→22:04)
[2019-01-19] MEDS: CALCIUM ACETATE 667 MG CAPSULE PO SCH ×4 (08:30→18:04)
[2019-01-19] MEDS: SODIUM CHLORIDE 1 GM TABLET PO SCH ×3 (08:30→22:03)
[2019-01-19] MEDS: PANTOPRAZOLE 40 MG TABLET PO SCH (08:30)
[2019-01-19] MEDS: CLOPIDOGREL 75 MG TABLET PO SCH (08:30)
[2019-01-19] MEDS: BRIMONIDINE 0.2% OPH SOLN 5 ML BOTTLE BOTH EYES SCH ×2 (08:35→22:04)
[2019-01-19] MEDS: VERAPAMIL SR 180 MG TABLET PO SCH ×2 (10:45→18:05)
[2019-01-19] MEDS: METOPROLOL SUCCINATE XL 25 MG TABLET PO SCH ×2 (10:45→18:05)
[2019-01-19] MEDS: HEPARIN 5,000 UNIT/1 ML VIAL SUBCUT SCH ×2 (10:49→22:05)
[2019-01-19] MEDS: LORATADINE 10 MG TABLET PO SCH (22:03)
[2019-01-19] MEDS: GABAPENTIN 100 MG CAPSULE PO SCH (22:04)
[2019-01-20] MEDS: cloNIDine 0.1 MG TABLET PO SCH ×4 (06:16→21:05)
[2019-01-20 07:16] LABS: Basophils % 0.2 % (0.0-0.8); Hematocrit 26.5 VOL% (35.7-47.0); Hemoglobin 8.2 GM/DL (12.0-16.0); Immature Granulocytes % 0.5 %; Immature Granulocytes Absolute 0.07 #; Lymphocytes # 0.2 10*3/uL (1.4-4.0); Lymphocytes % 1.6 % (21.3-54.2); Mean Corpuscular HGB Conc 30.9 GM/DL (32-36); Mean Corpuscular Hemoglobin 27 PG (27-34); Mean Corpuscular Volume 86.3 FL (87-102); Monocytes # 0.7 10*3/uL (0.11-0.8); Monocytes % 5.3 % (1.7-12.7); Neutrophils # 11.9 10*3/uL (1.4-7.4); Neutrophils % 92.4 % (38.7-73.9); Platelet Count 179 T/CUMM (130-400); Red Blood Count 3.07 MC/CUMM (3.8-5.5); Red Cell Distribution Width 15.6 % (9.3-17.3); White Blood Count 12.9 T/CUMM (4-12)
[2019-01-20 07:32] LABS: Band Neutrophils 2 % (0-10); Lymphocytes 2 % (20-55); Segmented Neutrophils 94 % (50-85); Total Cells Counted 100
[2019-01-20 07:33] LABS: Hypochromasia 1+; Microcytosis Slight; Target Cells Slight
[2019-01-20 07:34] LABS: Ovalocytes Slight; Platelet Estimate Adequate
[2019-01-20 07:42] LABS: Calcium 8.4 MG/DL (8.5-10.1); Osmolality,Calculated 277.7 MOS/KG (273-304); Potassium 5.1 MMOL/L (3.5-5.1)
[2019-01-20] MEDS: SODIUM CHLORIDE 1 GM TABLET PO SCH ×3 (08:22→20:36)
[2019-01-20] MEDS: METOPROLOL SUCCINATE XL 25 MG TABLET PO SCH (08:22)
[2019-01-20] MEDS: CLOPIDOGREL 75 MG TABLET PO SCH (08:23)
[2019-01-20] MEDS: CALCIUM ACETATE 667 MG CAPSULE PO SCH ×3 (08:23→16:19)
[2019-01-20] MEDS: VERAPAMIL SR 180 MG TABLET PO SCH (08:23)
[2019-01-20] MEDS: HYDROCORTISONE 10 MG TABLET PO SCH ×2 (08:23→20:36)
[2019-01-20] MEDS: PANTOPRAZOLE 40 MG TABLET PO SCH (08:23)
[2019-01-20] MEDS: ASPIRIN EC 81 MG TABLET PO SCH (08:23)
[2019-01-20] MEDS: CALCITRIOL 0.25 MCG CAPSULE PO SCH ×2 (08:24→20:46)
[2019-01-20] MEDS: MAGNESIUM CHLORIDE 64 MG TABLET PO SCH ×2 (08:24→20:35)
[2019-01-20] MEDS: HYDROXYCHLOROQUINE 200 MG TABLET PO SCH (08:24)
[2019-01-20] MEDS: BRIMONIDINE 0.2% OPH SOLN 5 ML BOTTLE BOTH EYES SCH ×2 (08:25→20:42)
[2019-01-20] MEDS: HEPARIN 5,000 UNIT/1 ML VIAL SUBCUT SCH ×2 (12:00→21:05)
[2019-01-20] MEDS: GABAPENTIN 100 MG CAPSULE PO SCH (20:35)
[2019-01-20] MEDS: LORATADINE 10 MG TABLET PO SCH (20:35)
[2019-01-21] MEDS: cloNIDine 0.1 MG TABLET PO SCH ×2 (04:51→12:29)
[2019-01-21 04:52] VITALS: BP 116/45
[2019-01-21 05:09] LABS: Basophils % 0.2 % (0.0-0.8); Eosinophils % 0.2 % (0.00-10.9); Hematocrit 24.1 VOL% (35.7-47.0); Hemoglobin 7.5 GM/DL (12.0-16.0); Immature Granulocytes % 1.1 %; Immature Granulocytes Absolute 0.14 #; Lymphocytes # 0.3 10*3/uL (1.4-4.0); Lymphocytes % 2.3 % (21.3-54.2); Mean Corpuscular HGB Conc 31.1 GM/DL (32-36); Mean Corpuscular Hemoglobin 27 PG (27-34); Mean Corpuscular Volume 86.7 FL (87-102); Mean Platelet Volume 10.5 FL (9.6-12.0); Monocytes # 0.8 10*3/uL (0.11-0.8); Monocytes % 6.4 % (1.7-12.7); Neutrophils # 11.9 10*3/uL (1.4-7.4); Neutrophils % 89.8 % (38.7-73.9); Platelet Count 175 T/CUMM (130-400); Red Blood Count 2.78 MC/CUMM (3.8-5.5); Red Cell Distribution Width 15.5 % (9.3-17.3); White Blood Count 13.2 T/CUMM (4-12)
[2019-01-21 05:22] LABS: Calcium 8.7 MG/DL (8.5-10.1); Osmolality,Calculated 275.9 MOS/KG (273-304); Potassium 5.3 MMOL/L (3.5-5.1)
[2019-01-21 05:30] LABS: Band Neutrophils 1 % (0-10); Hypochromasia 1+; Lymphocytes 2 % (20-55); Microcytosis Slight; Ovalocytes Slight; Segmented Neutrophils 92 % (50-85); Total Cells Counted 100
[2019-01-21] MEDS: CALCIUM ACETATE 667 MG CAPSULE PO SCH ×2 (11:57→12:25)
[2019-01-21] MEDS: METOPROLOL SUCCINATE XL 25 MG TABLET PO SCH (12:25)
[2019-01-21] MEDS: HYDROCORTISONE 10 MG TABLET PO SCH (12:25)
[2019-01-21] MEDS: VERAPAMIL SR 180 MG TABLET PO SCH (12:25)
[2019-01-21] MEDS: ASPIRIN EC 81 MG TABLET PO SCH (12:25)
[2019-01-21] MEDS: MAGNESIUM CHLORIDE 64 MG TABLET PO SCH (12:26)
[2019-01-21] MEDS: BRIMONIDINE 0.2% OPH SOLN 5 ML BOTTLE BOTH EYES SCH (12:26)
[2019-01-21] MEDS: CLOPIDOGREL 75 MG TABLET PO SCH (12:26)
[2019-01-21] MEDS: PANTOPRAZOLE 40 MG TABLET PO SCH (12:26)
[2019-01-21] MEDS: HEPARIN 5,000 UNIT/1 ML VIAL SUBCUT SCH (12:26)
[2019-01-21] MEDS: SODIUM CHLORIDE 1 GM TABLET PO SCH (12:28)
[2019-01-21] MEDS: HYDROXYCHLOROQUINE 200 MG TABLET PO SCH (12:28)
[2019-01-21] MEDS: CALCITRIOL 0.25 MCG CAPSULE PO SCH (12:28)
== END 2019-01-21 14:24 | DRG 640 ==
LOC: EDUNIT# → N.ED 12:57 → N.EDINP 16:06 → SUATTDRO 16:06 → N.EDINP 18:04 → N.5E 18:06 → N.CC 01-13 18:08
PROVIDERS: ADMIT Internal Medicine; ATTEND Internal Medicine

== ENCOUNTER 2019-02-12 18:36 | Inpatient (IN) ==
[2019-02-12] MEDS ORDERED: LOPERAMIDE 2 MG CAPSULE PO STA (19:05)
[2019-02-12] MEDS ORDERED: DICYCLOMINE 20 MG/2 ML AMP IM ONE (19:05)
[2019-02-12] MEDS ORDERED: ONDANSETRON 4 MG/2 ML VIAL IV STA (19:05)
[2019-02-12] MEDS ORDERED: metroNIDAZOLE INJ 500 MG in PREMIX 1 EACH IV STA (19:05)
[2019-02-12 20:27] LABS: Basophils % 0.3 % (0.0-0.8); Eosinophils # 0.1 10*3/uL (0.0-0.87); Eosinophils % 1.3 % (0.00-10.9); Hematocrit 42.1 VOL% (35.7-47.0); Hemoglobin 12.7 GM/DL (12.0-16.0); Immature Granulocytes % 0.5 %; Immature Granulocytes Absolute 0.02 #; Lymphocytes # 0.2 10*3/uL (1.4-4.0); Lymphocytes % 6.2 % (21.3-54.2); Mean Corpuscular HGB Conc 30.2 GM/DL (32-36); Mean Corpuscular Hemoglobin 27 PG (27-34); Mean Platelet Volume 10.5 FL (9.6-12.0); Monocytes # 0.3 10*3/uL (0.11-0.8); Neutrophils # 3.3 10*3/uL (1.4-7.4); Neutrophils % 83.7 % (38.7-73.9); Platelet Count 104 T/CUMM (130-400); Red Blood Count 4.68 MC/CUMM (3.8-5.5); Red Cell Distribution Width 17.1 % (9.3-17.3); White Blood Count 3.9 T/CUMM (4-12)
[2019-02-12 20:50] LABS: Alanine Aminotransferase 59 U/L (13-56); Albumin 2.7 G/DL (3.4-5.0); Alkaline Phosphatase 335 U/L (45-117); Amylase 62 U/L (25-115); Aspartate Amino Transferase 164 U/L (0-37); Blood Urea Nitrogen 32 MG/DL (7-18); Calcium 8.1 MG/DL (8.5-10.1); Glucose 57 MG/DL (74-106); Lipase < 50.0 U/L (73-393); Osmolality,Calculated 272.2 MOS/KG (273-304); Potassium 3.7 MMOL/L (3.5-5.1); Sodium 134 MMOL/L (136-145); Total Protein 6.8 G/DL (6.4-8.3)
[2019-02-12 20:56] LABS: Troponin I 0.186 NG/ML (0.00-0.045)
[2019-02-12] MEDS ORDERED: DEXTROSE 50% 25 GM/50 ML VIAL IV STA (21:10)
[2019-02-12] MEDS ORDERED: DEXTROSE 50% 25 GM/50 ML SYRINGE IV ONE (21:16)
[2019-02-13] MEDS ORDERED: DEXTROSE 50% 25 GM/50 ML SYRINGE IV ONE (00:46)
[2019-02-13] MEDS ORDERED: cloNIDine 0.1 MG TABLET PO PRN (01:05)
[2019-02-13 01:22] LABS: Troponin I 0.176 NG/ML (0.00-0.045)
[2019-02-13] MEDS: DEXTROSE 50% 25 GM/50 ML SYRINGE IV PRN ×3 (01:49→09:46)
[2019-02-13] MEDS: CIPROFLOXACIN INJ 400 MG in PREMIX 1 EACH IV SCH ×2 (02:38→20:21)
[2019-02-13] MEDS: metroNIDAZOLE INJ 500 MG in PREMIX 1 EACH IV SCH ×3 (03:32→21:20)
[2019-02-13] MEDS: MORPHINE 4 MG/1 ML VIAL IV PRN (05:30)
[2019-02-13 06:02] LABS: Albumin 2.4 G/DL (3.4-5.0); Bilirubin,Total 0.5 MG/DL (0.2-1.0); Calcium 7.3 MG/DL (8.5-10.1); Osmolality,Calculated 275.1 MOS/KG (273-304); Potassium 3.3 MMOL/L (3.5-5.1); Total Protein 6.2 G/DL (6.4-8.3)
[2019-02-13 06:52] LABS: Troponin I 0.168 NG/ML (0.00-0.045)
[2019-02-13] MEDS: cloNIDine 0.1 MG TABLET PO SCH ×3 (08:24→20:26)
[2019-02-13] MEDS: METOPROLOL SUCCINATE XL 25 MG TABLET PO SCH (08:24)
[2019-02-13] MEDS: MULTIVITAMIN (BEROCCA) TABLET PO SCH (08:24)
[2019-02-13] MEDS: PANTOPRAZOLE 40 MG TABLET PO SCH (08:24)
[2019-02-13] MEDS: CALCIUM ACETATE 667 MG CAPSULE PO SCH ×3 (08:24→16:01)
[2019-02-13] MEDS: ASPIRIN EC 81 MG TABLET PO SCH (08:24)
[2019-02-13] MEDS: HYDROXYCHLOROQUINE 200 MG TABLET PO SCH (08:24)
[2019-02-13] MEDS: CLOPIDOGREL 75 MG TABLET PO SCH (08:24)
[2019-02-13] MEDS: HYDROCORTISONE 100 MG VIAL IV SCH ×3 (08:25→20:21)
[2019-02-13] MEDS ORDERED: HYDROCORTISONE 10 MG TABLET PO SCH (09:00)
[2019-02-13] MEDS ORDERED: CLINDAMYCIN PHOSPHATE TOP SCH (09:00)
[2019-02-13] MEDS: ONDANSETRON 4 MG/2 ML VIAL IV PRN (09:22)
[2019-02-13] MEDS: VERAPAMIL SR 180 MG TABLET PO SCH (10:30)
[2019-02-13] MEDS: BRIMONIDINE 0.2% OPH SOLN 5 ML BOTTLE BOTH EYES SCH ×2 (10:30→20:20)
[2019-02-13] MEDS: CALCITRIOL 0.25 MCG CAPSULE PO SCH ×2 (10:30→20:29)
[2019-02-13] MEDS: CLOTRIMAZOLE 1% CREAM 15 GM TUBE TOP SCH (10:31)
[2019-02-13] MEDS ORDERED: DEXTROSE 10% 1,000 ML IV SCH (11:00)
[2019-02-13] MEDS ORDERED: DEXTROSE 10% 500 ML IV SCH (11:19)
[2019-02-13] MEDS: CINACALCET 30 MG TABLET PO SCH (16:01)
[2019-02-13] MEDS ORDERED: HEPARIN 10,000 UNIT/10 ML VIAL IV SCH (16:30)
[2019-02-13] MEDS: GABAPENTIN 100 MG CAPSULE PO SCH (20:20)
[2019-02-13] MEDS: ZALEPLON 5 MG CAPSULE PO SCH (20:20)
[2019-02-14] MEDS: HYDROCORTISONE 100 MG VIAL IV SCH ×2 (03:28→06:10)
[2019-02-14] MEDS: cloNIDine 0.1 MG TABLET PO SCH ×5 (03:29→18:01)
[2019-02-14] MEDS: metroNIDAZOLE INJ 500 MG in PREMIX 1 EACH IV SCH ×4 (03:29→18:01)
[2019-02-14 06:49] LABS: Albumin 2.3 G/DL (3.4-5.0); Calcium 7.4 MG/DL (8.5-10.1); Osmolality,Calculated 279.8 MOS/KG (273-304); Potassium 3.9 MMOL/L (3.5-5.1); Total Protein 5.9 G/DL (6.4-8.3)
[2019-02-14] MEDS: MULTIVITAMIN (BEROCCA) TABLET PO SCH (09:06)
[2019-02-14] MEDS: CALCIUM ACETATE 667 MG CAPSULE PO SCH ×3 (09:06→16:38)
[2019-02-14] MEDS: CALCITRIOL 0.25 MCG CAPSULE PO SCH ×2 (09:06→20:27)
[2019-02-14] MEDS: METOPROLOL SUCCINATE XL 25 MG TABLET PO SCH (09:06)
[2019-02-14] MEDS: CLOPIDOGREL 75 MG TABLET PO SCH (09:06)
[2019-02-14] MEDS: PANTOPRAZOLE 40 MG TABLET PO SCH (09:06)
[2019-02-14] MEDS: ASPIRIN EC 81 MG TABLET PO SCH (09:06)
[2019-02-14] MEDS: VERAPAMIL SR 180 MG TABLET PO SCH (09:06)
[2019-02-14] MEDS: HYDROXYCHLOROQUINE 200 MG TABLET PO SCH (09:06)
[2019-02-14] MEDS: CLOTRIMAZOLE 1% CREAM 15 GM TUBE TOP SCH (09:07)
[2019-02-14] MEDS: BRIMONIDINE 0.2% OPH SOLN 5 ML BOTTLE BOTH EYES SCH ×2 (09:07→23:04)
[2019-02-14] MEDS: traMADol 50 MG TABLET PO PRN (10:51)
[2019-02-14] MEDS: CIPROFLOXACIN INJ 400 MG in PREMIX 1 EACH IV SCH (14:09)
[2019-02-14] MEDS: ONDANSETRON 4 MG/2 ML VIAL IV PRN (16:38)
[2019-02-14] MEDS: CINACALCET 30 MG TABLET PO SCH (16:38)
[2019-02-14] MEDS: GABAPENTIN 100 MG CAPSULE PO SCH ×2 (17:58→18:01)
[2019-02-14] MEDS: HYDROCORTISONE 10 MG TABLET PO SCH (20:27)
[2019-02-14] MEDS: ZALEPLON 5 MG CAPSULE PO SCH (20:27)
[2019-02-15] MEDS: cloNIDine 0.1 MG TABLET PO SCH ×4 (00:56→19:48)
[2019-02-15] MEDS: metroNIDAZOLE INJ 500 MG in PREMIX 1 EACH IV SCH ×3 (03:06→19:47)
[2019-02-15 05:29] LABS: Albumin 2.4 G/DL (3.4-5.0); Bilirubin,Total 0.4 MG/DL (0.2-1.0); Calcium 7.5 MG/DL (8.5-10.1); Osmolality,Calculated 272.2 MOS/KG (273-304); Potassium 3.6 MMOL/L (3.5-5.1); Total Protein 5.9 G/DL (6.4-8.3)
[2019-02-15 06:06] LABS: Eosinophils % 0.5 % (0.00-10.9); Immature Granulocytes % 0.6 %; Immature Granulocytes Absolute 0.05 #; Lymphocytes # 0.4 10*3/uL (1.4-4.0); Lymphocytes % 4.6 % (21.3-54.2); Mean Corpuscular Hemoglobin 28 PG (27-34); Mean Corpuscular Volume 92.2 FL (87-102); Mean Platelet Volume 10.5 FL (9.6-12.0); Monocytes # 0.7 10*3/uL (0.11-0.8); Monocytes % 8.8 % (1.7-12.7); Neutrophils # 6.7 10*3/uL (1.4-7.4); Neutrophils % 85.5 % (38.7-73.9); Platelet Count 161 T/CUMM (130-400); Red Blood Count 2.17 MC/CUMM (3.8-5.5); Red Cell Distribution Width 17.2 % (9.3-17.3)
[2019-02-15 06:13] LABS: White Blood Count 7.9 T/CUMM (4-12)
[2019-02-15 06:20] LABS: Eosinophils 1 % (0-10); Lymphocytes 4 % (20-55); Myelocytes 1 %; Segmented Neutrophils 88 % (50-85); Total Cells Counted 100
[2019-02-15 06:21] LABS: Hypochromasia 2+; Platelet Estimate Normal
[2019-02-15 06:22] LABS: Ovalocytes 1+
[2019-02-15] MEDS ORDERED: SODIUM CHLORIDE 0.9% 1,000 ML IV PRN (06:32)
[2019-02-15 06:47] LABS: % Iron Saturation 80.5 % (18-50)
[2019-02-15] MEDS: ONDANSETRON 4 MG/2 ML VIAL IV PRN (09:27)
[2019-02-15] MEDS: traMADol 50 MG TABLET PO PRN (09:30)
[2019-02-15] MEDS: METOPROLOL SUCCINATE XL 25 MG TABLET PO SCH (09:31)
[2019-02-15] MEDS: HYDROCORTISONE 10 MG TABLET PO SCH (09:31)
[2019-02-15] MEDS: VERAPAMIL SR 180 MG TABLET PO SCH (09:31)
[2019-02-15] MEDS: CALCIUM ACETATE 667 MG CAPSULE PO SCH ×3 (09:31→16:49)
[2019-02-15] MEDS: CLOPIDOGREL 75 MG TABLET PO SCH (09:32)
[2019-02-15] MEDS: CIPROFLOXACIN INJ 400 MG in PREMIX 1 EACH IV SCH (09:32)
[2019-02-15] MEDS: HYDROXYCHLOROQUINE 200 MG TABLET PO SCH (09:32)
[2019-02-15] MEDS: ASPIRIN EC 81 MG TABLET PO SCH (09:32)
[2019-02-15] MEDS: PANTOPRAZOLE 40 MG TABLET PO SCH (09:32)
[2019-02-15] MEDS: CALCITRIOL 0.25 MCG CAPSULE PO SCH ×2 (09:32→20:04)
[2019-02-15] MEDS: MULTIVITAMIN (BEROCCA) TABLET PO SCH (09:32)
[2019-02-15] MEDS: CLOTRIMAZOLE 1% CREAM 15 GM TUBE TOP SCH (09:38)
[2019-02-15 10:05] LABS: Hematocrit 19.4 VOL% (35.7-47.0)
[2019-02-15 10:10] LABS: Hemoglobin 5.8 GM/DL (12.0-16.0)
[2019-02-15] MEDS ORDERED: PANTOPRAZOLE 40 MG TABLET PO SCH (11:30)
[2019-02-15] MEDS: BRIMONIDINE 0.2% OPH SOLN 5 ML BOTTLE BOTH EYES SCH ×2 (11:58→20:03)
[2019-02-15] MEDS: CINACALCET 30 MG TABLET PO SCH (16:49)
[2019-02-15] MEDS: GABAPENTIN 100 MG CAPSULE PO SCH (19:48)
[2019-02-15] MEDS: ZALEPLON 5 MG CAPSULE PO SCH (20:03)
[2019-02-16] MEDS: CIPROFLOXACIN INJ 400 MG in PREMIX 1 EACH IV SCH (02:00)
[2019-02-16] MEDS: cloNIDine 0.1 MG TABLET PO SCH ×4 (02:03→20:49)
[2019-02-16] MEDS: HYDROCORTISONE 10 MG TABLET PO SCH ×3 (02:03→20:47)
[2019-02-16] MEDS: metroNIDAZOLE INJ 500 MG in PREMIX 1 EACH IV SCH (03:30)
[2019-02-16 05:15] LABS: Hematocrit 19.9 VOL% (35.7-47.0)
[2019-02-16] MEDS: DEXTROSE 50% 25 GM/50 ML SYRINGE IV PRN (05:16)
[2019-02-16 05:23] LABS: Hemoglobin 5.9 GM/DL (12.0-16.0)
[2019-02-16] MEDS: ONDANSETRON 4 MG/2 ML VIAL IV PRN ×2 (06:07→09:49)
[2019-02-16] MEDS: MULTIVITAMIN (BEROCCA) TABLET PO SCH (08:49)
[2019-02-16] MEDS: VERAPAMIL SR 180 MG TABLET PO SCH (08:49)
[2019-02-16] MEDS: CALCITRIOL 0.25 MCG CAPSULE PO SCH ×2 (08:49→20:48)
[2019-02-16] MEDS: METOPROLOL SUCCINATE XL 25 MG TABLET PO SCH (08:49)
[2019-02-16] MEDS: PANTOPRAZOLE 40 MG TABLET PO SCH (08:50)
[2019-02-16] MEDS: HYDROXYCHLOROQUINE 200 MG TABLET PO SCH (08:50)
[2019-02-16] MEDS: CALCIUM ACETATE 667 MG CAPSULE PO SCH ×3 (08:57→17:22)
[2019-02-16] MEDS: traMADol 50 MG TABLET PO PRN ×2 (08:58→21:11)
[2019-02-16] MEDS: CLOTRIMAZOLE 1% CREAM 15 GM TUBE TOP SCH (09:00)
[2019-02-16] MEDS: BRIMONIDINE 0.2% OPH SOLN 5 ML BOTTLE BOTH EYES SCH ×2 (12:04→20:45)
[2019-02-16] MEDS: metroNIDAZOLE 500 MG TABLET PO SCH ×2 (17:22→20:48)
[2019-02-16] MEDS: CINACALCET 30 MG TABLET PO SCH (17:29)
[2019-02-16 18:53] LABS: Hematocrit 30.3 VOL% (35.7-47.0)
[2019-02-16 18:59] LABS: Hemoglobin 9.4 GM/DL (12.0-16.0)
[2019-02-16] MEDS: GABAPENTIN 100 MG CAPSULE PO SCH (20:48)
[2019-02-16] MEDS: ZALEPLON 5 MG CAPSULE PO SCH (20:48)
[2019-02-16] MEDS: CIPROFLOXACIN 500 MG TABLET PO SCH (21:11)
[2019-02-17] MEDS: cloNIDine 0.1 MG TABLET PO SCH ×4 (01:21→18:00)
[2019-02-17 04:49] LABS: Eosinophils # 0.1 10*3/uL (0.0-0.87); Hematocrit 27.6 VOL% (35.7-47.0); Hemoglobin 8.8 GM/DL (12.0-16.0); Immature Granulocytes % 0.4 %; Immature Granulocytes Absolute 0.03 #; Lymphocytes # 0.4 10*3/uL (1.4-4.0); Lymphocytes % 5.3 % (21.3-54.2); Mean Corpuscular HGB Conc 31.9 GM/DL (32-36); Mean Corpuscular Hemoglobin 29 PG (27-34); Mean Corpuscular Volume 89.9 FL (87-102); Mean Platelet Volume 10.2 FL (9.6-12.0); Monocytes # 0.9 10*3/uL (0.11-0.8); Monocytes % 12.5 % (1.7-12.7); Neutrophils # 5.8 10*3/uL (1.4-7.4); Neutrophils % 80.8 % (38.7-73.9); Platelet Count 145 T/CUMM (130-400); Red Blood Count 3.07 MC/CUMM (3.8-5.5); Red Cell Distribution Width 16.1 % (9.3-17.3); White Blood Count 7.2 T/CUMM (4-12)
[2019-02-17 05:09] LABS: Calcium 7.2 MG/DL (8.5-10.1); Osmolality,Calculated 268.4 MOS/KG (273-304); Potassium 3.6 MMOL/L (3.5-5.1)
[2019-02-17] MEDS: BRIMONIDINE 0.2% OPH SOLN 5 ML BOTTLE BOTH EYES SCH ×2 (10:57→20:35)
[2019-02-17] MEDS: CALCITRIOL 0.25 MCG CAPSULE PO SCH ×2 (10:58→20:40)
[2019-02-17] MEDS: METOPROLOL SUCCINATE XL 25 MG TABLET PO SCH (10:58)
[2019-02-17] MEDS: PANTOPRAZOLE 40 MG TABLET PO SCH (10:58)
[2019-02-17] MEDS: CALCIUM ACETATE 667 MG CAPSULE PO SCH ×3 (10:58→16:05)
[2019-02-17] MEDS: MULTIVITAMIN (BEROCCA) TABLET PO SCH (10:58)
[2019-02-17] MEDS: metroNIDAZOLE 500 MG TABLET PO SCH ×3 (10:58→20:35)
[2019-02-17] MEDS: HYDROCORTISONE 10 MG TABLET PO SCH ×2 (10:58→20:35)
[2019-02-17] MEDS: VERAPAMIL SR 180 MG TABLET PO SCH (10:59)
[2019-02-17] MEDS: CLOTRIMAZOLE 1% CREAM 15 GM TUBE TOP SCH (11:01)
[2019-02-17] MEDS: MORPHINE 4 MG/1 ML VIAL IV PRN (11:15)
[2019-02-17] MEDS: HYDROXYCHLOROQUINE 200 MG TABLET PO SCH (11:15)
[2019-02-17] MEDS ORDERED: BISACODYL 5 MG TABLET PO ONE (12:00)
[2019-02-17] MEDS ORDERED: LIDOCAINE 2% 5 ML VIAL ONE (12:30)
[2019-02-17] MEDS ORDERED: PROPOFOL 200 MG/20 ML VIAL IV ONE (12:30)
[2019-02-17] MEDS ORDERED: POLYETHYLENE GLYCOL POWDER 255 GM BOTTLE PO ONE (13:00)
[2019-02-17] MEDS ORDERED: EPOETIN ALFA 2,000 UNIT/1 ML VIAL IV PRN (15:17)
[2019-02-17] MEDS: CINACALCET 30 MG TABLET PO SCH (16:05)
[2019-02-17 17:21] LABS: Adenovirus F40/41 Negative (Negative); Astrovirus Negative (Negative); Cryptosporidium species Negative (Negative); Cyclospora cayetanensis Negative (Negative); Entamoeba histolytica Negative (Negative); Enteropathogenic E.coli (EPEC) Negative (Negative); Enterotoxigenic E. coli (ETEC) Negative (Negative); Norovirus GI/GII Negative (Negative); Plesiomonas shigelloides Negative (Negative); Salmonella species Negative (Negative); Sapovirus Positive (Negative); Shiga toxin producing E. coli Negative (Negative); Shigella/Enteroinvasive E.coli Negative (Negative); Specimen Source STOOL; Vibrio cholerae Negative (Negative); Yersinia enterocolitica Negative (Negative)
[2019-02-17] MEDS: GABAPENTIN 100 MG CAPSULE PO SCH (18:00)
[2019-02-17] MEDS: CIPROFLOXACIN 500 MG TABLET PO SCH (20:35)
[2019-02-17] MEDS: ZALEPLON 5 MG CAPSULE PO SCH (20:39)
[2019-02-17] MEDS: ONDANSETRON 4 MG/2 ML VIAL IV PRN (22:38)
[2019-02-18] MEDS: cloNIDine 0.1 MG TABLET PO SCH ×4 (00:30→18:34)
[2019-02-18 05:23] LABS: INR 1.1; PT Patient Result 11.9 SECS
[2019-02-18] MEDS ORDERED: SODIUM PHOSPHATE ENEMA 133 ML BOTTLE RECTAL PRN (06:08)
[2019-02-18] MEDS ORDERED: LACTATED RINGERS 500 ML IV ONE (07:00)
[2019-02-18 07:05] LABS: Eosinophils % 0.4 % (0.00-10.9); Hematocrit 27.5 VOL% (35.7-47.0); Hemoglobin 8.7 GM/DL (12.0-16.0); Immature Granulocytes % 0.4 %; Immature Granulocytes Absolute 0.03 #; Lymphocytes # 0.4 10*3/uL (1.4-4.0); Lymphocytes % 4.7 % (21.3-54.2); Mean Corpuscular HGB Conc 31.6 GM/DL (32-36); Mean Corpuscular Hemoglobin 29 PG (27-34); Mean Corpuscular Volume 90.5 FL (87-102); Mean Platelet Volume 11.2 FL (9.6-12.0); Monocytes # 0.8 10*3/uL (0.11-0.8); Monocytes % 11.1 % (1.7-12.7); Neutrophils # 6.2 10*3/uL (1.4-7.4); Neutrophils % 83.4 % (38.7-73.9); Platelet Count 157 T/CUMM (130-400); Red Blood Count 3.04 MC/CUMM (3.8-5.5); Red Cell Distribution Width 16.5 % (9.3-17.3); White Blood Count 7.5 T/CUMM (4-12)
[2019-02-18 07:25] LABS: Hypochromasia 1+; Lymphocytes 7 % (20-55); Platelet Estimate Normal; Segmented Neutrophils 88 % (50-85); Total Cells Counted 100
[2019-02-18 07:37] LABS: Calcium 6.7 MG/DL (8.5-10.1); Osmolality,Calculated 270.7 MOS/KG (273-304); Potassium 3.7 MMOL/L (3.5-5.1)
[2019-02-18] MEDS: VERAPAMIL SR 180 MG TABLET PO SCH (08:17)
[2019-02-18] MEDS: METOPROLOL SUCCINATE XL 25 MG TABLET PO SCH (08:17)
[2019-02-18] MEDS ORDERED: PROPOFOL 200 MG/20 ML VIAL IV ONE (10:00)
[2019-02-18] MEDS: CALCIUM ACETATE 667 MG CAPSULE PO SCH ×3 (10:12→16:37)
[2019-02-18] MEDS: HYDROCORTISONE 10 MG TABLET PO SCH ×2 (11:56→21:47)
[2019-02-18] MEDS: HYDROXYCHLOROQUINE 200 MG TABLET PO SCH (11:56)
[2019-02-18] MEDS: MULTIVITAMIN (BEROCCA) TABLET PO SCH (11:57)
[2019-02-18] MEDS: CALCITRIOL 0.25 MCG CAPSULE PO SCH ×2 (11:57→22:55)
[2019-02-18] MEDS: metroNIDAZOLE 500 MG TABLET PO SCH ×3 (11:57→21:47)
[2019-02-18] MEDS: PANTOPRAZOLE 40 MG TABLET PO SCH (11:57)
[2019-02-18] MEDS: CLOTRIMAZOLE 1% CREAM 15 GM TUBE TOP SCH (11:59)
[2019-02-18] MEDS: CINACALCET 30 MG TABLET PO SCH (16:36)
[2019-02-18] MEDS: BRIMONIDINE 0.2% OPH SOLN 5 ML BOTTLE BOTH EYES SCH ×2 (16:40→21:46)
[2019-02-18] MEDS: GABAPENTIN 100 MG CAPSULE PO SCH (18:34)
[2019-02-18] MEDS: MORPHINE 4 MG/1 ML VIAL IV PRN (21:43)
[2019-02-18] MEDS: CIPROFLOXACIN 500 MG TABLET PO SCH (21:47)
[2019-02-18] MEDS: ZALEPLON 5 MG CAPSULE PO SCH (22:55)
[2019-02-19] MEDS: cloNIDine 0.1 MG TABLET PO SCH ×5 (01:50→20:51)
[2019-02-19] MEDS ORDERED: ceFAZolin 1,000 MG in SYRINGE 1 EACH IV ONE (07:00)
[2019-02-19] MEDS ORDERED: HEPARIN 5,000 UNIT/1 ML VIAL ONE (08:00)
[2019-02-19] MEDS ORDERED: THROMBIN TOPICAL (RECOMBINANT) 5,000 UNIT VIAL TOP ONE (08:01)
[2019-02-19] MEDS ORDERED: LIDOCAINE 1%/EPI INJ 20 ML VIAL ONE (08:01)
[2019-02-19 08:06] LABS: Basophils % 0.1 % (0.0-0.8); Eosinophils % 0.1 % (0.00-10.9); Hematocrit 28.5 VOL% (35.7-47.0); Immature Granulocytes % 0.7 %; Immature Granulocytes Absolute 0.06 #; Lymphocytes # 0.5 10*3/uL (1.4-4.0); Lymphocytes % 5.8 % (21.3-54.2); Mean Corpuscular HGB Conc 31.6 GM/DL (32-36); Mean Corpuscular Hemoglobin 29 PG (27-34); Mean Corpuscular Volume 90.2 FL (87-102); Mean Platelet Volume 9.9 FL (9.6-12.0); Monocytes # 0.8 10*3/uL (0.11-0.8); Monocytes % 10.1 % (1.7-12.7); Neutrophils # 6.9 10*3/uL (1.4-7.4); Neutrophils % 83.2 % (38.7-73.9); Platelet Count 139 T/CUMM (130-400); Red Blood Count 3.16 MC/CUMM (3.8-5.5); Red Cell Distribution Width 16.4 % (9.3-17.3); White Blood Count 8.3 T/CUMM (4-12)
[2019-02-19 08:29] LABS: Calcium 6.8 MG/DL (8.5-10.1); Potassium 3.6 MMOL/L (3.5-5.1)
[2019-02-19] MEDS ORDERED: PROPOFOL 200 MG/20 ML VIAL IV ONE (09:32)
[2019-02-19] MEDS ORDERED: SODIUM CHLORIDE 0.9% 100 ML IV ONE (09:33)
[2019-02-19] MEDS ORDERED: MIDAZOLAM 2 MG/2 ML VIAL ONE (09:33)
[2019-02-19] MEDS ORDERED: ONDANSETRON 4 MG/2 ML VIAL ONE (09:33)
[2019-02-19] MEDS ORDERED: ETOMIDATE 40 MG/20 ML VIAL IV ONE (09:33)
[2019-02-19] MEDS ORDERED: DEXAMETHASONE 4 MG/1 ML VIAL ONE (09:33)
[2019-02-19] MEDS ORDERED: METOPROLOL TARTRATE 5 MG/5 ML VIAL IV ONE (09:33)
[2019-02-19] MEDS: CLOTRIMAZOLE 1% CREAM 15 GM TUBE TOP SCH (10:47)
[2019-02-19] MEDS: BRIMONIDINE 0.2% OPH SOLN 5 ML BOTTLE BOTH EYES SCH ×2 (10:47→20:52)
[2019-02-19] MEDS: CALCITRIOL 0.25 MCG CAPSULE PO SCH ×2 (10:48→20:51)
[2019-02-19] MEDS: VERAPAMIL SR 180 MG TABLET PO SCH (10:48)
[2019-02-19] MEDS: MULTIVITAMIN (BEROCCA) TABLET PO SCH (10:49)
[2019-02-19] MEDS: PANTOPRAZOLE 40 MG TABLET PO SCH (10:50)
[2019-02-19] MEDS: HYDROCORTISONE 10 MG TABLET PO SCH ×2 (10:50→20:50)
[2019-02-19] MEDS: METOPROLOL SUCCINATE XL 25 MG TABLET PO SCH (10:50)
[2019-02-19] MEDS: ASPIRIN EC 81 MG TABLET PO SCH (10:50)
[2019-02-19] MEDS: HYDROXYCHLOROQUINE 200 MG TABLET PO SCH (10:50)
[2019-02-19] MEDS: CLOPIDOGREL 75 MG TABLET PO SCH (11:19)
[2019-02-19] MEDS: MORPHINE 4 MG/1 ML VIAL IV PRN (11:19)
[2019-02-19] MEDS: CALCIUM ACETATE 667 MG CAPSULE PO SCH ×3 (11:45→16:59)
[2019-02-19] MEDS: CINACALCET 30 MG TABLET PO SCH (16:59)
[2019-02-19] MEDS ORDERED: DEXTROSE 50% 25 GM/50 ML SYRINGE IV PRN (17:46)
[2019-02-19] MEDS ORDERED: GLUCAGON 1 MG VIAL IM PRN (17:46)
[2019-02-19] MEDS: GABAPENTIN 100 MG CAPSULE PO SCH (20:52)
[2019-02-19] MEDS: INSULIN REGULAR 100 UNIT/ML SUBCUT SCH (21:05)
[2019-02-19] MEDS: ZALEPLON 5 MG CAPSULE PO SCH (22:25)
[2019-02-20] MEDS: cloNIDine 0.1 MG TABLET PO SCH ×4 (01:56→20:49)
[2019-02-20 05:15] LABS: Basophils % 0.1 % (0.0-0.8); Hematocrit 28.3 VOL% (35.7-47.0); Hemoglobin 9.2 GM/DL (12.0-16.0); Immature Granulocytes % 0.7 %; Immature Granulocytes Absolute 0.06 #; Lymphocytes # 0.3 10*3/uL (1.4-4.0); Lymphocytes % 3.7 % (21.3-54.2); Mean Corpuscular HGB Conc 32.5 GM/DL (32-36); Mean Corpuscular Hemoglobin 29 PG (27-34); Mean Corpuscular Volume 88.7 FL (87-102); Mean Platelet Volume 10.8 FL (9.6-12.0); Monocytes # 0.9 10*3/uL (0.11-0.8); Monocytes % 9.7 % (1.7-12.7); Neutrophils # 7.5 10*3/uL (1.4-7.4); Neutrophils % 85.8 % (38.7-73.9); Platelet Count 159 T/CUMM (130-400); Red Blood Count 3.19 MC/CUMM (3.8-5.5); White Blood Count 8.7 T/CUMM (4-12)
[2019-02-20 05:37] LABS: Calcium 6.8 MG/DL (8.5-10.1); Potassium 3.9 MMOL/L (3.5-5.1)
[2019-02-20] MEDS: traMADol 50 MG TABLET PO PRN (06:05)
[2019-02-20 06:06] LABS: Anisocytosis Slight; Lymphocytes 4 % (20-55); Segmented Neutrophils 94 % (50-85); Total Cells Counted 100
[2019-02-20 06:07] LABS: Burr Cells 1+; Microcytosis Slight
[2019-02-20 06:10] LABS: Ovalocytes Slight
[2019-02-20 06:11] LABS: Platelet Estimate Adequate
[2019-02-20] MEDS: CALCIUM ACETATE 667 MG CAPSULE PO SCH ×3 (07:52→17:19)
[2019-02-20] MEDS: HYDROCORTISONE 10 MG TABLET PO SCH ×4 (07:52→20:48)
[2019-02-20] MEDS: CLOPIDOGREL 75 MG TABLET PO SCH ×2 (07:53→08:52)
[2019-02-20] MEDS: METOPROLOL SUCCINATE XL 25 MG TABLET PO SCH ×2 (07:53→08:52)
[2019-02-20] MEDS: VERAPAMIL SR 180 MG TABLET PO SCH ×2 (07:53→08:51)
[2019-02-20] MEDS: CALCITRIOL 0.25 MCG CAPSULE PO SCH ×3 (07:53→20:48)
[2019-02-20] MEDS: ASPIRIN EC 81 MG TABLET PO SCH ×2 (07:54→08:51)
[2019-02-20] MEDS: MULTIVITAMIN (BEROCCA) TABLET PO SCH ×2 (07:54→08:51)
[2019-02-20] MEDS: HYDROXYCHLOROQUINE 200 MG TABLET PO SCH ×2 (07:54→08:51)
[2019-02-20] MEDS: BRIMONIDINE 0.2% OPH SOLN 5 ML BOTTLE BOTH EYES SCH ×3 (07:55→20:48)
[2019-02-20] MEDS: CLOTRIMAZOLE 1% CREAM 15 GM TUBE TOP SCH ×2 (07:55→08:51)
[2019-02-20] MEDS: PANTOPRAZOLE 40 MG TABLET PO SCH (08:01)
[2019-02-20] MEDS: INSULIN REGULAR 100 UNIT/ML SUBCUT SCH ×4 (08:49→21:08)
[2019-02-20] MEDS: CINACALCET 30 MG TABLET PO SCH (17:19)
[2019-02-20] MEDS: GABAPENTIN 100 MG CAPSULE PO SCH (20:48)
[2019-02-20] MEDS: ZALEPLON 5 MG CAPSULE PO SCH (22:37)
[2019-02-21] MEDS: cloNIDine 0.1 MG TABLET PO SCH ×3 (01:11→14:02)
[2019-02-21] MEDS ORDERED: traMADol 50 MG TABLET PO PRN (08:15)
[2019-02-21] MEDS: HYDROXYCHLOROQUINE 200 MG TABLET PO SCH (08:18)
[2019-02-21] MEDS: CLOTRIMAZOLE 1% CREAM 15 GM TUBE TOP SCH (08:18)
[2019-02-21] MEDS: MULTIVITAMIN (BEROCCA) TABLET PO SCH (08:18)
[2019-02-21] MEDS: CLOPIDOGREL 75 MG TABLET PO SCH (08:18)
[2019-02-21] MEDS: HYDROCORTISONE 10 MG TABLET PO SCH (08:18)
[2019-02-21] MEDS: PANTOPRAZOLE 40 MG TABLET PO SCH (08:18)
[2019-02-21] MEDS: METOPROLOL SUCCINATE XL 25 MG TABLET PO SCH (08:18)
[2019-02-21] MEDS: ASPIRIN EC 81 MG TABLET PO SCH (08:18)
[2019-02-21] MEDS: CALCIUM ACETATE 667 MG CAPSULE PO SCH ×2 (08:18→11:50)
[2019-02-21] MEDS: VERAPAMIL SR 180 MG TABLET PO SCH (08:20)
[2019-02-21] MEDS: BRIMONIDINE 0.2% OPH SOLN 5 ML BOTTLE BOTH EYES SCH (08:20)
[2019-02-21] MEDS: CALCITRIOL 0.25 MCG CAPSULE PO SCH (08:20)
[2019-02-21] MEDS: INSULIN REGULAR 100 UNIT/ML SUBCUT SCH (09:25)
[2019-02-21 13:04] VITALS: BP 161/58
== END 2019-02-21 15:10 | disposition home or self-care (01) | DRG 981 ==
LOC: EDBD → EDUNIT# → N.ED 18:36 → N.EDINP 23:47 → SUATTDRO 23:47 → N.2E 02-13 00:22
PROVIDERS: ADMIT Internal Medicine Cardiovascular Disease; ATTEND Hospitalist

== ENCOUNTER 2019-03-12 15:47 | Observation (INO) ==
[2019-03-12] MEDS ORDERED: PANTOPRAZOLE 40 MG VIAL IV STA (16:04)
[2019-03-12] MEDS ORDERED: ONDANSETRON 4 MG/2 ML VIAL IV STA (16:04)
[2019-03-12] MEDS ORDERED: METOCLOPRAMIDE 10 MG/2 ML VIAL IV STA (16:04)
[2019-03-12] MEDS ORDERED: methylPREDNISolone SOD SUC 125 MG/2 ML VIAL IV STA (16:08)
[2019-03-12] MEDS ORDERED: ORPHENADRINE 60 MG/2 ML VIAL IV STA (16:09)
[2019-03-12] MEDS ORDERED: PANTOPRAZOLE 40 MG VIAL IV ONE (16:16)
[2019-03-12] MEDS ORDERED: ORPHENADRINE 60 MG/2 ML VIAL ONE (16:16)
[2019-03-12] MEDS ORDERED: METOCLOPRAMIDE 10 MG/2 ML VIAL ONE (16:16)
[2019-03-12] MEDS ORDERED: methylPREDNISolone SOD SUC 125 MG/2 ML VIAL ONE (16:17)
[2019-03-12] MEDS ORDERED: ONDANSETRON 4 MG/2 ML VIAL ONE (16:17)
[2019-03-12 16:29] LABS: Basophils % 0.2 % (0.0-0.8); Eosinophils % 0.1 % (0.00-10.9); Hematocrit 29.6 VOL% (35.7-47.0); Hemoglobin 9.1 GM/DL (12.0-16.0); Immature Granulocytes % 0.3 %; Immature Granulocytes Absolute 0.03 #; Lymphocytes # 0.5 10*3/uL (1.4-4.0); Lymphocytes % 5.4 % (21.3-54.2); Mean Corpuscular HGB Conc 30.7 GM/DL (32-36); Mean Corpuscular Volume 97.4 FL (87-102); Mean Platelet Volume 10.2 FL (9.6-12.0); NRBC # 0.11 10*3/uL; Platelet Count 243 T/CUMM (130-400); Red Blood Count 3.04 MC/CUMM (3.8-5.5); Red Cell Distribution Width 18.9 % (9.3-17.3); White Blood Count 8.9 T/CUMM (4-12)
[2019-03-12 16:36] LABS: PT Patient Result 11.3 SECS
[2019-03-12 16:56] LABS: Alanine Aminotransferase 14 U/L (13-56); Albumin 2.9 G/DL (3.4-5.0); Alkaline Phosphatase 191 U/L (45-117); Aspartate Amino Transferase 21 U/L (0-37); Blood Urea Nitrogen 24 MG/DL (7-18); Glucose 114 MG/DL (74-106); Osmolality,Calculated 279.7 MOS/KG (273-304); Total Protein 7.3 G/DL (6.4-8.3)
[2019-03-12 16:57] LABS: Troponin I 0.182 NG/ML (0.00-0.045)
[2019-03-12] MEDS ORDERED: EPOETIN ALFA 2,000 UNIT/1 ML VIAL IV PRN (18:27)
[2019-03-12] MEDS ORDERED: PROMETHAZINE 25 MG TABLET PO PRN (18:27)
[2019-03-12] MEDS ORDERED: diphenhydrAMINE CAP 25 MG CAPSULE PO PRN (18:28)
[2019-03-12] MEDS ORDERED: guaiFENesin/DM ER 600-30 MG TABLET PO PRN (18:28)
[2019-03-12] MEDS ORDERED: hydrALAZINE 20 MG/1 ML VIAL IV PRN (20:19)
[2019-03-12] MEDS: GABAPENTIN 100 MG CAPSULE PO SCH (21:43)
[2019-03-12] MEDS: METOPROLOL TARTRATE 25 MG TABLET PO SCH (21:43)
[2019-03-12] MEDS: cloNIDine 0.1 MG TABLET PO SCH (21:43)
[2019-03-12] MEDS: RIVAROXABAN 10 MG TABLET PO SCH (21:44)
[2019-03-12] MEDS: ZALEPLON 5 MG CAPSULE PO SCH (21:44)
[2019-03-12] MEDS: DOCUSATE SODIUM 100 MG CAPSULE PO SCH (21:44)
[2019-03-12] MEDS: LORATADINE 10 MG TABLET PO SCH (21:44)
[2019-03-12] MEDS: BRIMONIDINE 0.2% OPH SOLN 5 ML BOTTLE BOTH EYES SCH (21:45)
[2019-03-12] MEDS: hydrALAZINE 25 MG TABLET PO SCH (22:22)
[2019-03-13] MEDS: traMADol 50 MG TABLET PO PRN ×2 (05:41→17:20)
[2019-03-13 05:47] LABS: Basophils % 0.1 % (0.0-0.8); Hematocrit 28.5 VOL% (35.7-47.0); Hemoglobin 8.7 GM/DL (12.0-16.0); Immature Granulocytes % 0.5 %; Immature Granulocytes Absolute 0.04 #; Lymphocytes # 0.3 10*3/uL (1.4-4.0); Lymphocytes % 3.7 % (21.3-54.2); Mean Corpuscular HGB Conc 30.5 GM/DL (32-36); Mean Corpuscular Volume 96.9 FL (87-102); Mean Platelet Volume 10.3 FL (9.6-12.0); Monocytes % 5.1 % (1.7-12.7); NRBC # 0.05 10*3/uL; Neutrophils % 90.6 % (38.7-73.9); Platelet Count 209 T/CUMM (130-400); Red Blood Count 2.94 MC/CUMM (3.8-5.5); Red Cell Distribution Width 18.7 % (9.3-17.3); White Blood Count 7.9 T/CUMM (4-12)
[2019-03-13 06:20] LABS: Albumin 2.5 G/DL (3.4-5.0); Bilirubin,Total 0.7 MG/DL (0.2-1.0); Osmolality,Calculated 283.7 MOS/KG (273-304); Total Protein 6.7 G/DL (6.4-8.3)
[2019-03-13 06:24] LABS: Band Neutrophils 1 % (0-10); Lymphocytes 5 % (20-55); Segmented Neutrophils 93 % (50-85); Total Cells Counted 100
[2019-03-13 06:25] LABS: Hypochromasia 1+; Microcytosis Slight; Platelet Estimate Adequate
[2019-03-13] MEDS: RIVAROXABAN 10 MG TABLET PO SCH ×2 (08:46→21:52)
[2019-03-13] MEDS: CALCIUM ACETATE 667 MG CAPSULE PO SCH ×3 (08:46→17:20)
[2019-03-13] MEDS: predniSONE 10 MG TABLET PO SCH (08:46)
[2019-03-13] MEDS: MULTIVITAMIN (BEROCCA) TABLET PO SCH (08:47)
[2019-03-13] MEDS: DOCUSATE SODIUM 100 MG CAPSULE PO SCH ×2 (08:47→21:53)
[2019-03-13] MEDS: HYDROXYCHLOROQUINE 200 MG TABLET PO SCH (08:47)
[2019-03-13] MEDS: hydrALAZINE 25 MG TABLET PO SCH ×2 (08:48→21:53)
[2019-03-13] MEDS: ASPIRIN EC 81 MG TABLET PO SCH (08:48)
[2019-03-13] MEDS: BRIMONIDINE 0.2% OPH SOLN 5 ML BOTTLE BOTH EYES SCH ×2 (08:49→21:54)
[2019-03-13] MEDS ORDERED: PANTOPRAZOLE 40 MG TABLET PO SCH (09:00)
[2019-03-13] MEDS ORDERED: GLUCAGON 1 MG VIAL IM PRN (09:09)
[2019-03-13] MEDS ORDERED: DEXTROSE 50% 25 GM/50 ML VIAL IV PRN (09:09)
[2019-03-13] MEDS ORDERED: HEPARIN 10,000 UNIT/10 ML VIAL IV SCH (11:30)
[2019-03-13] MEDS: ONDANSETRON 4 MG TABLET PO PRN (12:53)
[2019-03-13] MEDS: VERAPAMIL SR 180 MG TABLET PO SCH (12:58)
[2019-03-13] MEDS: cloNIDine 0.1 MG TABLET PO SCH ×2 (12:58→21:53)
[2019-03-13] MEDS: PANTOPRAZOLE 40 MG TABLET PO SCH ×2 (12:58→21:53)
[2019-03-13] MEDS: METOPROLOL TARTRATE 25 MG TABLET PO SCH ×2 (12:58→21:53)
[2019-03-13] MEDS: INSULIN LISPRO 100 UNIT/ML SUBCUT SCH ×3 (12:59→21:54)
[2019-03-13] MEDS: ACETAMINOPHEN 325 MG TABLET PO PRN (15:58)
[2019-03-13] MEDS: CINACALCET 30 MG TABLET PO SCH (17:20)
[2019-03-13] MEDS: GABAPENTIN 100 MG CAPSULE PO SCH (21:52)
[2019-03-13] MEDS: LORATADINE 10 MG TABLET PO SCH (21:53)
[2019-03-13] MEDS: ZALEPLON 5 MG CAPSULE PO SCH (23:31)
[2019-03-14] MEDS: INSULIN LISPRO 100 UNIT/ML SUBCUT SCH ×4 (07:49→20:32)
[2019-03-14] MEDS: PANTOPRAZOLE 40 MG TABLET PO SCH ×2 (09:27→20:29)
[2019-03-14] MEDS: DOCUSATE SODIUM 100 MG CAPSULE PO SCH ×2 (09:29→20:29)
[2019-03-14] MEDS: MULTIVITAMIN (BEROCCA) TABLET PO SCH (09:30)
[2019-03-14] MEDS: cloNIDine 0.1 MG TABLET PO SCH ×2 (09:30→20:30)
[2019-03-14] MEDS: VERAPAMIL SR 180 MG TABLET PO SCH (09:30)
[2019-03-14] MEDS: HYDROXYCHLOROQUINE 200 MG TABLET PO SCH (09:30)
[2019-03-14] MEDS: CALCIUM ACETATE 667 MG CAPSULE PO SCH ×3 (09:31→17:01)
[2019-03-14] MEDS: METOPROLOL TARTRATE 25 MG TABLET PO SCH ×2 (09:32→20:29)
[2019-03-14] MEDS: ASPIRIN EC 81 MG TABLET PO SCH (09:32)
[2019-03-14] MEDS: traMADol 50 MG TABLET PO PRN (09:38)
[2019-03-14] MEDS: RIVAROXABAN 10 MG TABLET PO SCH ×2 (09:39→20:30)
[2019-03-14] MEDS: hydrALAZINE 25 MG TABLET PO SCH ×2 (09:42→20:32)
[2019-03-14] MEDS: BRIMONIDINE 0.2% OPH SOLN 5 ML BOTTLE BOTH EYES SCH ×2 (09:43→20:31)
[2019-03-14] MEDS: predniSONE 10 MG TABLET PO SCH (09:45)
[2019-03-14] MEDS: CINACALCET 30 MG TABLET PO SCH (16:59)
[2019-03-14] MEDS: GABAPENTIN 100 MG CAPSULE PO SCH (20:30)
[2019-03-14] MEDS: LORATADINE 10 MG TABLET PO SCH (20:32)
[2019-03-14] MEDS: ZALEPLON 5 MG CAPSULE PO SCH (20:32)
[2019-03-15 05:50] LABS: Calcium 8.9 MG/DL (8.5-10.1); Osmolality,Calculated 276.4 MOS/KG (273-304)
[2019-03-15 06:34] LABS: Basophils % 0.2 % (0.0-0.8); Eosinophils % 0.2 % (0.00-10.9); Hematocrit 28.9 VOL% (35.7-47.0); Hemoglobin 8.5 GM/DL (12.0-16.0); Immature Granulocytes % 1.4 %; Immature Granulocytes Absolute 0.12 #; Lymphocytes # 0.6 10*3/uL (1.4-4.0); Lymphocytes % 6.7 % (21.3-54.2); Mean Corpuscular HGB Conc 29.4 GM/DL (32-36); Mean Platelet Volume 10.1 FL (9.6-12.0); Monocytes % 14.5 % (1.7-12.7); NRBC # 0.03 10*3/uL; Platelet Count 146 T/CUMM (130-400); Red Blood Count 2.89 MC/CUMM (3.8-5.5); Red Cell Distribution Width 19.5 % (9.3-17.3); White Blood Count 8.9 T/CUMM (4-12)
[2019-03-15 07:02] LABS: Hypochromasia Slight; Ovalocytes Slight; Platelet Estimate Adequate
[2019-03-15 07:03] LABS: Microcytosis Slight
[2019-03-15] MEDS: INSULIN LISPRO 100 UNIT/ML SUBCUT SCH ×4 (07:58→21:29)
[2019-03-15] MEDS: ASPIRIN EC 81 MG TABLET PO SCH (09:13)
[2019-03-15] MEDS: VERAPAMIL SR 180 MG TABLET PO SCH (09:13)
[2019-03-15] MEDS: PANTOPRAZOLE 40 MG TABLET PO SCH ×2 (09:13→21:23)
[2019-03-15] MEDS: BRIMONIDINE 0.2% OPH SOLN 5 ML BOTTLE BOTH EYES SCH ×2 (09:13→21:24)
[2019-03-15] MEDS: MULTIVITAMIN (BEROCCA) TABLET PO SCH (09:13)
[2019-03-15] MEDS: METOPROLOL TARTRATE 25 MG TABLET PO SCH ×2 (09:14→21:20)
[2019-03-15] MEDS: CALCIUM ACETATE 667 MG CAPSULE PO SCH ×3 (09:14→16:45)
[2019-03-15] MEDS: cloNIDine 0.1 MG TABLET PO SCH ×2 (09:14→21:23)
[2019-03-15] MEDS: HYDROXYCHLOROQUINE 200 MG TABLET PO SCH (09:14)
[2019-03-15] MEDS: RIVAROXABAN 10 MG TABLET PO SCH ×2 (09:14→21:21)
[2019-03-15] MEDS: DOCUSATE SODIUM 100 MG CAPSULE PO SCH ×2 (09:14→21:22)
[2019-03-15] MEDS: hydrALAZINE 25 MG TABLET PO SCH ×2 (09:14→21:23)
[2019-03-15] MEDS: traMADol 50 MG TABLET PO PRN (11:08)
[2019-03-15] MEDS: ONDANSETRON 4 MG TABLET PO PRN ×2 (13:46→21:23)
[2019-03-15] MEDS: CINACALCET 30 MG TABLET PO SCH (16:45)
[2019-03-15] MEDS: ZALEPLON 5 MG CAPSULE PO SCH (21:20)
[2019-03-15] MEDS: LORATADINE 10 MG TABLET PO SCH (21:22)
[2019-03-15] MEDS: GABAPENTIN 100 MG CAPSULE PO SCH (21:22)
[2019-03-16] MEDS: INSULIN LISPRO 100 UNIT/ML SUBCUT SCH ×4 (08:19→23:11)
[2019-03-16] MEDS: VERAPAMIL SR 180 MG TABLET PO SCH (08:53)
[2019-03-16] MEDS: PANTOPRAZOLE 40 MG TABLET PO SCH ×2 (08:53→23:04)
[2019-03-16] MEDS: hydrALAZINE 25 MG TABLET PO SCH ×2 (08:53→23:04)
[2019-03-16] MEDS: HYDROXYCHLOROQUINE 200 MG TABLET PO SCH (08:53)
[2019-03-16] MEDS: CALCIUM ACETATE 667 MG CAPSULE PO SCH ×3 (08:53→17:23)
[2019-03-16] MEDS: RIVAROXABAN 10 MG TABLET PO SCH ×2 (08:53→23:05)
[2019-03-16] MEDS: ASPIRIN EC 81 MG TABLET PO SCH (08:53)
[2019-03-16] MEDS: METOPROLOL TARTRATE 25 MG TABLET PO SCH ×2 (08:53→23:04)
[2019-03-16] MEDS: cloNIDine 0.1 MG TABLET PO SCH ×2 (08:53→23:06)
[2019-03-16] MEDS: MULTIVITAMIN (BEROCCA) TABLET PO SCH (08:53)
[2019-03-16] MEDS: DOCUSATE SODIUM 100 MG CAPSULE PO SCH ×2 (08:54→23:04)
[2019-03-16] MEDS: BRIMONIDINE 0.2% OPH SOLN 5 ML BOTTLE BOTH EYES SCH ×2 (08:54→23:39)
[2019-03-16] MEDS ORDERED: TUBERCULIN SKIN TEST 0.1 ML SYRINGE INTRADERM ONE (11:00)
[2019-03-16] MEDS: ONDANSETRON 4 MG TABLET PO PRN (17:22)
[2019-03-16] MEDS: CINACALCET 30 MG TABLET PO SCH (17:24)
[2019-03-16] MEDS: ACETAMINOPHEN 325 MG TABLET PO PRN (18:11)
[2019-03-16] MEDS: LORATADINE 10 MG TABLET PO SCH (23:04)
[2019-03-16] MEDS: ZALEPLON 5 MG CAPSULE PO SCH (23:04)
[2019-03-16] MEDS: GABAPENTIN 100 MG CAPSULE PO SCH (23:04)
[2019-03-17] MEDS: ACETAMINOPHEN 325 MG TABLET PO PRN (01:50)
[2019-03-17] MEDS: INSULIN LISPRO 100 UNIT/ML SUBCUT SCH ×2 (07:52→11:29)
[2019-03-17] MEDS: CALCIUM ACETATE 667 MG CAPSULE PO SCH ×2 (08:29→11:13)
[2019-03-17] MEDS: PANTOPRAZOLE 40 MG TABLET PO SCH (08:29)
[2019-03-17] MEDS: VERAPAMIL SR 180 MG TABLET PO SCH (08:29)
[2019-03-17] MEDS: HYDROXYCHLOROQUINE 200 MG TABLET PO SCH (08:29)
[2019-03-17] MEDS: cloNIDine 0.1 MG TABLET PO SCH (08:29)
[2019-03-17] MEDS: METOPROLOL TARTRATE 25 MG TABLET PO SCH (08:29)
[2019-03-17] MEDS: DOCUSATE SODIUM 100 MG CAPSULE PO SCH (08:30)
[2019-03-17] MEDS: RIVAROXABAN 10 MG TABLET PO SCH (08:30)
[2019-03-17] MEDS: ASPIRIN EC 81 MG TABLET PO SCH (08:30)
[2019-03-17] MEDS: MULTIVITAMIN (BEROCCA) TABLET PO SCH (08:30)
[2019-03-17] MEDS: hydrALAZINE 25 MG TABLET PO SCH (08:30)
[2019-03-17] MEDS: BRIMONIDINE 0.2% OPH SOLN 5 ML BOTTLE BOTH EYES SCH (08:30)
[2019-03-17] MEDS: traMADol 50 MG TABLET PO PRN (11:13)
[2019-03-17 12:47] VITALS: BP 124/53
== END 2019-03-17 16:55 ==
LOC: EDBD → EDUNIT# → N.ED 15:47 → N.EDINP 15:47 → SUATTDRO 18:28 → N.5E 19:24 → SUATTDRO 03-14 10:25
PROVIDERS: ADMIT Hospitalist; ATTEND Family Medicine

== ENCOUNTER 2019-06-10 12:10 | Observation (INO) ==
[2019-06-10] MEDS ORDERED: ONDANSETRON 4 MG/2 ML VIAL IV STA (12:37)
[2019-06-10 13:45] LABS: Calcium 11.3 MG/DL (8.5-10.1)
[2019-06-10 13:51] LABS: Hematocrit 40.1 VOL% (35.7-47.0); Hemoglobin 11.9 GM/DL (12.0-16.0); Immature Granulocytes % 0.4 %; Immature Granulocytes Absolute 0.01 #; Lymphocytes # 0.5 10*3/uL (1.4-4.0); Lymphocytes % 16.2 % (21.3-54.2); Mean Corpuscular HGB Conc 29.7 GM/DL (32-36); Mean Corpuscular Volume 86.6 FL (87-102); Mean Platelet Volume 11.9 FL (9.6-12.0); Monocytes % 12.2 % (1.7-12.7); NRBC # 0.06 10*3/uL; Neutrophils % 71.2 % (38.7-73.9); Platelet Count 145 T/CUMM (130-400); Red Blood Count 4.63 MC/CUMM (3.8-5.5); Red Cell Distribution Width 19.4 % (9.3-17.3); White Blood Count 2.8 T/CUMM (4-12)
[2019-06-10] MEDS ORDERED: DILTIAZEM 25 MG/5 ML VIAL IV ONE (14:26)
[2019-06-10] MEDS ORDERED: DILTIAZEM 50 MG/10 ML VIAL IV STA (14:30)
[2019-06-10] MEDS ORDERED: dilTIAZem Drip 125 MG/125 ML PREMIX IV ONE (14:52)
[2019-06-10] MEDS ORDERED: dilTIAZem Drip 125 MG/125 ML PREMIX IV SCH (15:00)
[2019-06-10] MEDS ORDERED: DEXTROSE 50% 25 GM/50 ML VIAL IV PRN ×2 (15:33→18:16)
[2019-06-10] MEDS ORDERED: GLUCAGON 1 MG VIAL IM PRN ×2 (15:33→18:16)
[2019-06-10 16:17] LABS: Risk Ratio 2.19; Thyroid Stimulating Hormone 1.36 uIU/ml (0.358-3.74); VLDL CHOLESTEROL 15.8 MG/DL
[2019-06-10] MEDS ORDERED: DILTIAZEM 50 MG/10 ML VIAL IV ONE (16:30)
[2019-06-10] MEDS: INSULIN LISPRO 100 UNIT/ML SUBCUT SCH ×2 (17:39→21:45)
[2019-06-10] MEDS ORDERED: METOPROLOL TARTRATE 25 MG TABLET PO SCH (20:00)
[2019-06-10] MEDS: HEPARIN 5,000 UNIT/1 ML VIAL SUBCUT SCH ×2 (20:09→23:55)
[2019-06-10] MEDS: CALCIUM ACETATE 667 MG CAPSULE PO SCH (20:22)
[2019-06-10] MEDS: BRIMONIDINE 0.2% OPH SOLN 5 ML BOTTLE BOTH EYES SCH (20:23)
[2019-06-10] MEDS: traMADol 50 MG TABLET PO PRN (20:23)
[2019-06-10] MEDS: hydrALAZINE 25 MG TABLET PO SCH (20:23)
[2019-06-11] MEDS: ACETAMINOPHEN 325 MG TABLET PO PRN ×2 (00:36→08:24)
[2019-06-11] MEDS: diphenhydrAMINE CAP 25 MG CAPSULE PO PRN ×3 (00:37→20:43)
[2019-06-11] MEDS: ASPIRIN EC 81 MG TABLET PO SCH (05:24)
[2019-06-11] MEDS: HYDROXYCHLOROQUINE 200 MG TABLET PO SCH ×2 (05:24→05:37)
[2019-06-11] MEDS: VERAPAMIL SR 180 MG TABLET PO SCH (05:24)
[2019-06-11 06:26] LABS: Hematocrit 41.7 VOL% (35.7-47.0); Hemoglobin 12.6 GM/DL (12.0-16.0); Immature Granulocytes % 0.4 %; Immature Granulocytes Absolute 0.02 #; Lymphocytes # 0.6 10*3/uL (1.4-4.0); Lymphocytes % 11.5 % (21.3-54.2); Mean Corpuscular HGB Conc 30.2 GM/DL (32-36); Mean Corpuscular Volume 87.1 FL (87-102); Mean Platelet Volume 12.3 FL (9.6-12.0); Monocytes % 11.1 % (1.7-12.7); NRBC # 0.11 10*3/uL; Platelet Count 157 T/CUMM (130-400); Red Blood Count 4.79 MC/CUMM (3.8-5.5); Red Cell Distribution Width 19.8 % (9.3-17.3); White Blood Count 5.2 T/CUMM (4-12)
[2019-06-11 06:46] LABS: Hypochromasia 1+; Platelet Estimate Adequate
[2019-06-11 06:52] LABS: Calcium 11.4 MG/DL (8.5-10.1); Osmolality,Calculated 276.5 MOS/KG (273-304)
[2019-06-11] MEDS: PANTOPRAZOLE 40 MG TABLET PO SCH (08:24)
[2019-06-11] MEDS: BRIMONIDINE 0.2% OPH SOLN 5 ML BOTTLE BOTH EYES SCH ×2 (08:24→20:44)
[2019-06-11] MEDS: HEPARIN 5,000 UNIT/1 ML VIAL SUBCUT SCH ×2 (08:24→18:02)
[2019-06-11] MEDS: CALCIUM ACETATE 667 MG CAPSULE PO SCH ×2 (08:24→18:02)
[2019-06-11] MEDS: INSULIN LISPRO 100 UNIT/ML SUBCUT SCH ×4 (08:25→20:44)
[2019-06-11] MEDS: ONDANSETRON 4 MG/2 ML VIAL IV PRN ×3 (10:25→20:43)
[2019-06-11] MEDS: METOPROLOL TARTRATE 50 MG TABLET PO SCH ×2 (12:44→20:43)
[2019-06-11] MEDS: hydrALAZINE 25 MG TABLET PO SCH ×2 (12:44→20:43)
[2019-06-11] MEDS ORDERED: hydrALAZINE 20 MG/1 ML VIAL IV PRN (16:08)
[2019-06-11] MEDS: traMADol 50 MG TABLET PO PRN (16:31)
[2019-06-12] MEDS: HEPARIN 5,000 UNIT/1 ML VIAL SUBCUT SCH ×2 (00:05→09:47)
[2019-06-12] MEDS: ACETAMINOPHEN 325 MG TABLET PO PRN (03:48)
[2019-06-12] MEDS: HYDROXYCHLOROQUINE 200 MG TABLET PO SCH (05:17)
[2019-06-12] MEDS: VERAPAMIL SR 180 MG TABLET PO SCH (05:53)
[2019-06-12] MEDS: ASPIRIN EC 81 MG TABLET PO SCH (05:53)
[2019-06-12] MEDS: INSULIN LISPRO 100 UNIT/ML SUBCUT SCH ×2 (07:45→12:36)
[2019-06-12] MEDS: ONDANSETRON 4 MG/2 ML VIAL IV PRN (09:42)
[2019-06-12] MEDS: BRIMONIDINE 0.2% OPH SOLN 5 ML BOTTLE BOTH EYES SCH (09:45)
[2019-06-12] MEDS: CALCIUM ACETATE 667 MG CAPSULE PO SCH ×2 (09:46→12:30)
[2019-06-12] MEDS: PANTOPRAZOLE 40 MG TABLET PO SCH (09:46)
[2019-06-12 10:10] LABS: Calcium 9.4 MG/DL (8.5-10.1); Osmolality,Calculated 287.5 MOS/KG (273-304)
[2019-06-12 10:14] LABS: Basophils % 0.2 % (0.0-0.8); Hematocrit 36.6 VOL% (35.7-47.0); Hemoglobin 10.6 GM/DL (12.0-16.0); Immature Granulocytes % 0.5 %; Immature Granulocytes Absolute 0.03 #; Lymphocytes # 0.7 10*3/uL (1.4-4.0); Lymphocytes % 11.8 % (21.3-54.2); Mean Corpuscular Volume 88.6 FL (87-102); Mean Platelet Volume 11.8 FL (9.6-12.0); Monocytes % 9.7 % (1.7-12.7); NRBC # 0.08 10*3/uL; Neutrophils % 77.8 % (38.7-73.9); Platelet Count 160 T/CUMM (130-400); Red Blood Count 4.13 MC/CUMM (3.8-5.5); Red Cell Distribution Width 19.4 % (9.3-17.3); White Blood Count 5.8 T/CUMM (4-12)
[2019-06-12] MEDS ORDERED: HEPARIN 10,000 UNIT/10 ML VIAL IV PRN (12:17)
[2019-06-12] MEDS: traMADol 50 MG TABLET PO PRN (12:31)
[2019-06-12] MEDS: METOPROLOL TARTRATE 50 MG TABLET PO SCH (12:31)
[2019-06-12] MEDS: hydrALAZINE 25 MG TABLET PO SCH (12:31)
[2019-06-12 16:00] VITALS: BP 143/79
== END 2019-06-12 15:38 | disposition home health service (06) ==
LOC: EDBD → EDUNIT# → N.ED 12:10 → N.EDINP 12:10 → SUATTDRO 15:33 → N.TELEN 16:07
PROVIDERS: ADMIT Internal Medicine; ATTEND Family Medicine

== ENCOUNTER 2019-06-13 03:25 | Observation (INO) ==
[2019-06-13] MEDS ORDERED: DILTIAZEM 50 MG/10 ML VIAL IV STA (05:35)
[2019-06-13] MEDS ORDERED: MORPHINE 4 MG/1 ML VIAL IV STA (05:35)
[2019-06-13] MEDS ORDERED: dilTIAZem Drip 125 MG/125 ML PREMIX IV SCH (06:00)
[2019-06-13 06:01] LABS: Basophils % 0.1 % (0.0-0.8); Eosinophils % 0.3 % (0.00-10.9); Hematocrit 35.8 VOL% (35.7-47.0); Hemoglobin 10.6 GM/DL (12.0-16.0); Immature Granulocytes % 0.6 %; Immature Granulocytes Absolute 0.04 #; Lymphocytes # 0.9 10*3/uL (1.4-4.0); Lymphocytes % 12.3 % (21.3-54.2); Mean Corpuscular HGB Conc 29.6 GM/DL (32-36); Mean Corpuscular Volume 88.4 FL (87-102); Mean Platelet Volume 11.5 FL (9.6-12.0); Monocytes % 11.8 % (1.7-12.7); NRBC # 0.09 10*3/uL; Neutrophils % 74.9 % (38.7-73.9); Platelet Count 145 T/CUMM (130-400); Red Blood Count 4.05 MC/CUMM (3.8-5.5); Red Cell Distribution Width 19.5 % (9.3-17.3); White Blood Count 7.1 T/CUMM (4-12)
[2019-06-13 06:23] LABS: Albumin 3.1 G/DL (3.4-5.0); Bilirubin,Total 0.4 MG/DL (0.2-1.0); Calcium 9.8 MG/DL (8.5-10.1); Osmolality,Calculated 287.5 MOS/KG (273-304); Total Protein 6.8 G/DL (6.4-8.3)
[2019-06-13] MEDS ORDERED: dilTIAZem Drip 125 MG/125 ML PREMIX IV ONE (07:28)
[2019-06-13] MEDS: dilTIAZem Drip 125 MG/125 ML PREMIX IV SCH ×2 (07:34→21:23)
[2019-06-13] MEDS ORDERED: POTASSIUM CHLORIDE 20 MEQ TABLET PO STA (07:40)
[2019-06-13] MEDS ORDERED: DILTIAZEM CD 120 MG CAPSULE PO STA (08:19)
[2019-06-13] MEDS ORDERED: METOPROLOL TARTRATE 50 MG TABLET PO STA (08:19)
[2019-06-13] MEDS ORDERED: DEXTROSE 10% 250 ML BAG IV PRN (08:21)
[2019-06-13] MEDS ORDERED: GLUCAGON 1 MG VIAL IM PRN (08:21)
[2019-06-13] MEDS ORDERED: ONDANSETRON ODT 4 MG TABLET PO PRN (08:25)
[2019-06-13] MEDS ORDERED: MAGNESIUM SULF RIDER 1 GM in PREMIX 1 EACH IV ONE (08:29)
[2019-06-13] MEDS: INSULIN LISPRO 100 UNIT/ML SUBCUT SCH ×3 (12:19→21:24)
[2019-06-13] MEDS: HEPARIN 5,000 UNIT/1 ML VIAL SUBCUT SCH ×2 (12:20→21:24)
[2019-06-13] MEDS: CALCIUM ACETATE 667 MG CAPSULE PO SCH ×2 (12:22→17:18)
[2019-06-13] MEDS: hydrALAZINE 25 MG TABLET PO SCH ×2 (12:22→21:24)
[2019-06-13] MEDS: traMADol 50 MG TABLET PO PRN (12:25)
[2019-06-13 15:31] LABS: Troponin I 0.258 NG/ML (0.00-0.045)
[2019-06-13] MEDS: BRIMONIDINE 0.2% OPH SOLN 5 ML BOTTLE BOTH EYES SCH (17:17)
[2019-06-13 20:58] LABS: Troponin I 0.254 NG/ML (0.00-0.045)
[2019-06-13] MEDS: METOPROLOL TARTRATE 50 MG TABLET PO SCH ×2 (21:24)
[2019-06-14] MEDS: HEPARIN 5,000 UNIT/1 ML VIAL SUBCUT SCH ×2 (03:55→11:40)
[2019-06-14] MEDS: CALCIUM ACETATE 667 MG CAPSULE PO SCH ×2 (05:53→11:40)
[2019-06-14] MEDS: BRIMONIDINE 0.2% OPH SOLN 5 ML BOTTLE BOTH EYES SCH (05:54)
[2019-06-14] MEDS ORDERED: HYDROXYCHLOROQUINE 200 MG TABLET PO SCH (06:00)
[2019-06-14] MEDS ORDERED: PANTOPRAZOLE 40 MG TABLET PO SCH (06:00)
[2019-06-14] MEDS ORDERED: ASPIRIN EC 81 MG TABLET PO SCH (06:00)
[2019-06-14 06:48] LABS: Albumin 2.6 G/DL (3.4-5.0); Bilirubin,Total 0.4 MG/DL (0.2-1.0); Calcium 9.4 MG/DL (8.5-10.1); Osmolality,Calculated 289.7 MOS/KG (273-304); Total Protein 6.4 G/DL (6.4-8.3)
[2019-06-14] MEDS: INSULIN LISPRO 100 UNIT/ML SUBCUT SCH ×3 (07:54→16:08)
[2019-06-14] MEDS: traMADol 50 MG TABLET PO PRN (08:37)
[2019-06-14] MEDS: METOPROLOL TARTRATE 50 MG TABLET PO SCH (08:37)
[2019-06-14] MEDS: dilTIAZem Drip 125 MG/125 ML PREMIX IV SCH ×2 (08:55)
[2019-06-14] MEDS ORDERED: DILTIAZEM CD 240 MG CAPSULE PO SCH (09:00)
[2019-06-14] MEDS ORDERED: METOPROLOL TARTRATE 100 MG TABLET PO SCH (10:32)
[2019-06-14] MEDS: hydrALAZINE 25 MG TABLET PO SCH (11:40)
[2019-06-14] MEDS ORDERED: ACETAMINOPHEN 325 MG TABLET PO PRN (14:49)
[2019-06-14 16:06] VITALS: BP 154/79
== END 2019-06-14 18:01 | disposition home health service (06) ==
LOC: EDUNIT# → EDBD → N.ED 03:25 → N.EDINP 03:25 → N.TELEN 09:11
PROVIDERS: ADMIT Family Medicine; ATTEND Family Medicine

== ENCOUNTER 2019-06-17 19:23 | Observation (INO) ==
[2019-06-17] MEDS ORDERED: ONDANSETRON 4 MG/2 ML VIAL IV STA (19:54)
[2019-06-17] MEDS ORDERED: PANTOPRAZOLE 40 MG VIAL IV STA (19:54)
[2019-06-17 20:28] LABS: Albumin 2.9 G/DL (3.4-5.0); Bilirubin,Total 0.5 MG/DL (0.2-1.0); Calcium 8.8 MG/DL (8.5-10.1); Osmolality,Calculated 286.3 MOS/KG (273-304); Total Protein 6.9 G/DL (6.4-8.3)
[2019-06-17 20:30] LABS: Basophils % 0.3 % (0.0-0.8); Eosinophils # 0.1 10*3/uL (0.0-0.87); Eosinophils % 1.8 % (0.00-10.9); Hematocrit 35.5 VOL% (35.7-47.0); Hemoglobin 10.2 GM/DL (12.0-16.0); Immature Granulocytes % 0.5 %; Immature Granulocytes Absolute 0.03 #; Lymphocytes # 0.8 10*3/uL (1.4-4.0); Lymphocytes % 13.8 % (21.3-54.2); Mean Corpuscular HGB Conc 28.7 GM/DL (32-36); Mean Corpuscular Volume 89.6 FL (87-102); Mean Platelet Volume 10.9 FL (9.6-12.0); Monocytes % 12.6 % (1.7-12.7); NRBC # 0.02 10*3/uL; Platelet Count 100 T/CUMM (130-400); Red Blood Count 3.96 MC/CUMM (3.8-5.5); Red Cell Distribution Width 20.5 % (9.3-17.3)
[2019-06-17] MEDS ORDERED: ONDANSETRON 4 MG/2 ML VIAL IV PRN (23:50)
[2019-06-18] MEDS ORDERED: MEPERIDINE 50 MG/1 ML VIAL IV PRN (02:33)
[2019-06-18] MEDS ORDERED: BRIMONIDINE 0.2% OPH SOLN 5 ML BOTTLE BOTH EYES SCH (06:00)
[2019-06-18] MEDS ORDERED: HYDROXYCHLOROQUINE 200 MG TABLET PO SCH (06:00)
[2019-06-18 08:11] LABS: Bilirubin,Total 0.6 MG/DL (0.2-1.0); Calcium 9.1 MG/DL (8.5-10.1); Osmolality,Calculated 284.4 MOS/KG (273-304); Total Protein 6.5 G/DL (6.4-8.3)
[2019-06-18] MEDS ORDERED: FAMOTIDINE 20 MG/2 ML VIAL IV SCH (09:00)
[2019-06-18] MEDS ORDERED: NICOTINE 21 MG/24 HR PATCH TRANSDERM PRN (09:00)
[2019-06-18] MEDS ORDERED: METOPROLOL TARTRATE 100 MG TABLET PO SCH (09:00)
[2019-06-18] MEDS ORDERED: DILTIAZEM CD 240 MG CAPSULE PO SCH (09:00)
[2019-06-18] MEDS: CALCIUM ACETATE 667 MG CAPSULE PO SCH ×2 (09:14→12:30)
[2019-06-18] MEDS ORDERED: POTASSIUM CHLORIDE 20 MEQ TABLET PO ONE (09:33)
[2019-06-18] MEDS ORDERED: PROCHLORPERAZINE 5 MG TABLET PO SCH (09:34)
[2019-06-18] MEDS ORDERED: hydrALAZINE 25 MG TABLET PO SCH (12:00)
[2019-06-18] MEDS ORDERED: oxyCODONE/ACETAMINOPHEN 5-325 MG TABLET PO PRN (12:40)
[2019-06-18 15:47] VITALS: BP 157/79
[2019-06-18] MEDS ORDERED: PANTOPRAZOLE 40 MG TABLET PO SCH (19:00)
[2019-06-18] MEDS ORDERED: MIRTAZAPINE 15 MG TABLET PO SCH (21:00)
== END 2019-06-18 16:50 | disposition home health service (06) ==
LOC: EDUNIT# → EDBD → N.EDINP 19:23 → N.ED 19:23 → N.5E 06-18 01:07
PROVIDERS: ADMIT Internal Medicine Cardiovascular Disease; ATTEND Internal Medicine Cardiovascular Disease

== ENCOUNTER 2019-07-13 16:06 | Inpatient (IN) ==
[2019-07-13] MEDS ORDERED: ASPIRIN 325 MG TABLET PO STA (17:45)
[2019-07-13] MEDS ORDERED: CLINDAMYCIN INJ 600 MG in PREMIX 1 EACH IV STA (19:33)
[2019-07-13] MEDS ORDERED: ORPHENADRINE 60 MG/2 ML VIAL IV STA (19:33)
[2019-07-13] MEDS ORDERED: KETOROLAC 30 MG/1 ML VIAL IV STA (19:33)
[2019-07-13] MEDS ORDERED: ONDANSETRON 4 MG/2 ML VIAL IV STA (19:40)
[2019-07-13] MEDS ORDERED: SILVER SULFADIAZINE 1% CREAM 25 GM TUBE TOP ONE (19:41)
[2019-07-13 20:27] LABS: Basophils % 0.4 % (0.0-0.8); Eosinophils # 0.1 10*3/uL (0.0-0.87); Eosinophils % 0.9 % (0.00-10.9); Hematocrit 35.6 VOL% (35.7-47.0); Hemoglobin 11.2 GM/DL (12.0-16.0); Immature Granulocytes % 0.4 %; Immature Granulocytes Absolute 0.03 #; Lymphocytes # 0.9 10*3/uL (1.4-4.0); Lymphocytes % 12.7 % (21.3-54.2); Mean Corpuscular HGB Conc 31.5 GM/DL (32-36); Mean Corpuscular Volume 83.4 FL (87-102); Neutrophils % 77.6 % (38.7-73.9); Platelet Count 195 T/CUMM (130-400); Red Blood Count 4.27 MC/CUMM (3.8-5.5); White Blood Count 6.8 T/CUMM (4-12)
[2019-07-13 20:46] LABS: Barbiturates Screen,Urine Negative (Negative); Benzodiazepines Screen,Urine Negative (Negative); Cannabinoid Screen,Urine Negative (Negative); Opiate Screen,Urine Negative (Negative); Phencyclidine Screen,Urine Negative (Negative)
[2019-07-13 20:49] LABS: Apearance,Urine CLEAR (Clear); Bilirubin,Urine Negative (Negative); Blood, Urine Negative (Negative); Glucose,Urine (UA) Negative (Negative); Hyaline Casts,Urine 1 /LPF (0-3); Ketones,Urine Negative (Negative); Nitrite,Urine Negative (Negative); Protein,Urine Negative; RBC,Urine <1 /HPF (0-4); Squamous Epithelial Cell,Urine Occasional /HPF (0-10); Urine Color Amber (Yellow); Urine Urobilinogen < 2.0 EU/DL (0.2-1.0); WBC,Urine 2 /HPF (0-6)
[2019-07-13 20:56] LABS: Alanine Aminotransferase 13 U/L (13-56); Albumin 2.2 G/DL (3.4-5.0); Alkaline Phosphatase 156 U/L (45-117); Aspartate Amino Transferase 13 U/L (0-37); Bilirubin,Total < 0.39 MG/DL (0.2-1.0); Blood Urea Nitrogen 21 MG/DL (7-18); Calcium 9.6 MG/DL (8.5-10.1); Glucose 129 MG/DL (74-106); Osmolality,Calculated 266.7 MOS/KG (273-304); Total Protein 6.4 G/DL (6.4-8.3)
[2019-07-13] MEDS ORDERED: FUROSEMIDE 40 MG/4 ML VIAL IV ONE (22:11)
[2019-07-13] MEDS ORDERED: NICOTINE 21 MG/24 HR PATCH TRANSDERM PRN (22:11)
[2019-07-13] MEDS ORDERED: diphenhydrAMINE CAP 25 MG CAPSULE PO PRN (22:11)
[2019-07-13] MEDS ORDERED: guaiFENesin/DM ER 600-30 MG TABLET PO PRN (22:11)
[2019-07-13] MEDS ORDERED: hydrALAZINE 20 MG/1 ML VIAL IV PRN (22:11)
[2019-07-13] MEDS ORDERED: amLODIPine 10 MG TABLET PO ONE (22:11)
[2019-07-14] MEDS: ALBUTEROL/IPRATROPIUM 3 ML NEB RESP TX SCH ×4 (00:25→20:20)
[2019-07-14] MEDS: BRIMONIDINE 0.2% OPH SOLN 5 ML BOTTLE BOTH EYES SCH ×2 (05:27→19:04)
[2019-07-14 06:46] LABS: Alanine Aminotransferase 13 U/L (13-56); Albumin 2.2 G/DL (3.4-5.0); Alkaline Phosphatase 158 U/L (45-117); Aspartate Amino Transferase 17 U/L (0-37); Bilirubin,Total < 0.39 MG/DL (0.2-1.0); Blood Urea Nitrogen 24 MG/DL (7-18); Calcium 9.5 MG/DL (8.5-10.1); Glucose 80 MG/DL (74-106); Osmolality,Calculated 264.7 MOS/KG (273-304); Total Protein 6.4 G/DL (6.4-8.3)
[2019-07-14] MEDS ORDERED: PROCHLORPERAZINE 5 MG TABLET PO PRN (09:00)
[2019-07-14] MEDS ORDERED: HEPARIN 10,000 UNIT/10 ML VIAL IV SCH (11:30)
[2019-07-14] MEDS: CALCIUM ACETATE 667 MG CAPSULE PO SCH ×3 (11:43→19:04)
[2019-07-14] MEDS: METOPROLOL TARTRATE 100 MG TABLET PO SCH ×2 (12:58→20:48)
[2019-07-14] MEDS: HYDROXYCHLOROQUINE 200 MG TABLET PO SCH (12:58)
[2019-07-14] MEDS: ASPIRIN EC 81 MG TABLET PO SCH (12:59)
[2019-07-14] MEDS: DILTIAZEM CD 240 MG CAPSULE PO SCH (13:02)
[2019-07-14] MEDS: hydrALAZINE 25 MG TABLET PO SCH ×2 (13:21→20:48)
[2019-07-14] MEDS: SILVER SULFADIAZINE 1% CREAM 25 GM TUBE TOP SCH (16:38)
[2019-07-14] MEDS: CHOLESTYRAMINE 4 GM PACK PO SCH (20:47)
[2019-07-14] MEDS: APIXABAN 5 MG TABLET PO SCH (20:48)
[2019-07-15] MEDS: ALBUTEROL/IPRATROPIUM 3 ML NEB RESP TX SCH ×4 (01:05→20:25)
[2019-07-15] MEDS: traMADol 50 MG TABLET PO PRN ×3 (01:48→20:19)
[2019-07-15] MEDS: BRIMONIDINE 0.2% OPH SOLN 5 ML BOTTLE BOTH EYES SCH ×2 (06:48→17:11)
[2019-07-15 07:49] LABS: Basophils % 0.5 % (0.0-0.8); Eosinophils # 0.1 10*3/uL (0.0-0.87); Eosinophils % 1.1 % (0.00-10.9); Hematocrit 34.7 VOL% (35.7-47.0); Hemoglobin 10.8 GM/DL (12.0-16.0); Immature Granulocytes % 0.6 %; Immature Granulocytes Absolute 0.05 #; Lymphocytes # 0.8 10*3/uL (1.4-4.0); Lymphocytes % 9.9 % (21.3-54.2); Mean Corpuscular HGB Conc 31.1 GM/DL (32-36); Mean Corpuscular Volume 84.6 FL (87-102); Monocytes % 11.8 % (1.7-12.7); Neutrophils % 76.1 % (38.7-73.9); Platelet Count 156 T/CUMM (130-400); Red Cell Distribution Width 17.2 % (9.3-17.3); White Blood Count 7.9 T/CUMM (4-12)
[2019-07-15 08:19] LABS: Calcium 9.2 MG/DL (8.5-10.1); Osmolality,Calculated 271.5 MOS/KG (273-304)
[2019-07-15 08:27] LABS: Ferritin 926.4 ng/ml (8-252); Hemoglobin A1 (Alkaline) 97.3 % (96.5-98.5); Hemoglobin A2 (Alkaline) 2.7 % (1.5-3.5)
[2019-07-15] MEDS: APIXABAN 5 MG TABLET PO SCH ×2 (08:36→20:21)
[2019-07-15] MEDS: HYDROXYCHLOROQUINE 200 MG TABLET PO SCH (08:37)
[2019-07-15] MEDS: MIRTAZAPINE 15 MG TABLET PO SCH (08:37)
[2019-07-15] MEDS: ASPIRIN EC 81 MG TABLET PO SCH (08:38)
[2019-07-15] MEDS: CHOLESTYRAMINE 4 GM PACK PO SCH ×2 (08:42→20:23)
[2019-07-15] MEDS: SILVER SULFADIAZINE 1% CREAM 25 GM TUBE TOP SCH (08:42)
[2019-07-15 08:52] LABS: Folate > 24.0 NG/ML (5.4-24.0); Vitamin B12 622 PG/ML (211-911)
[2019-07-15 08:54] LABS: Sedimentation Rate-Westergren 40 MM/HR (0-30)
[2019-07-15] MEDS: CALCIUM ACETATE 667 MG CAPSULE PO SCH ×3 (12:54→17:11)
[2019-07-15] MEDS: MULTIVITAMIN (BEROCCA) TABLET PO SCH (12:55)
[2019-07-15] MEDS: OMEGA 3 ACID ETHYL ESTERS 1 GM CAPSULE PO SCH ×2 (12:55→20:21)
[2019-07-15] MEDS: METOPROLOL TARTRATE 100 MG TABLET PO SCH ×2 (12:55→20:21)
[2019-07-15] MEDS: DILTIAZEM CD 240 MG CAPSULE PO SCH (12:56)
[2019-07-15] MEDS: hydrALAZINE 25 MG TABLET PO SCH ×2 (12:56→20:21)
[2019-07-15] MEDS: AMIODARONE 200 MG TABLET PO SCH ×2 (12:56→21:36)
[2019-07-16] MEDS: ALBUTEROL/IPRATROPIUM 3 ML NEB RESP TX SCH ×4 (01:33→19:27)
[2019-07-16] MEDS: ONDANSETRON 4 MG/2 ML VIAL IV PRN (04:42)
[2019-07-16] MEDS: BRIMONIDINE 0.2% OPH SOLN 5 ML BOTTLE BOTH EYES SCH ×2 (07:55→17:40)
[2019-07-16 08:02] LABS: Risk Ratio 2.07; VLDL CHOLESTEROL 16.4 MG/DL
[2019-07-16] MEDS: DILTIAZEM CD 240 MG CAPSULE PO SCH (09:48)
[2019-07-16] MEDS: CALCIUM ACETATE 667 MG CAPSULE PO SCH ×3 (09:48→17:40)
[2019-07-16] MEDS: CHOLESTYRAMINE 4 GM PACK PO SCH ×2 (09:48→21:43)
[2019-07-16] MEDS: MULTIVITAMIN (BEROCCA) TABLET PO SCH (09:49)
[2019-07-16] MEDS: AMIODARONE 200 MG TABLET PO SCH ×2 (09:49→21:28)
[2019-07-16] MEDS: METOPROLOL TARTRATE 100 MG TABLET PO SCH ×2 (09:49→21:29)
[2019-07-16] MEDS: APIXABAN 5 MG TABLET PO SCH ×2 (09:49→21:28)
[2019-07-16] MEDS: HYDROXYCHLOROQUINE 200 MG TABLET PO SCH (09:49)
[2019-07-16] MEDS: OMEGA 3 ACID ETHYL ESTERS 1 GM CAPSULE PO SCH ×2 (09:49→21:27)
[2019-07-16] MEDS: ASPIRIN EC 81 MG TABLET PO SCH (09:49)
[2019-07-16] MEDS: traMADol 50 MG TABLET PO PRN (11:59)
[2019-07-16] MEDS: hydrALAZINE 25 MG TABLET PO SCH ×2 (12:30→20:06)
[2019-07-16] MEDS: SILVER SULFADIAZINE 1% CREAM 25 GM TUBE TOP SCH (16:58)
[2019-07-17] MEDS: traMADol 50 MG TABLET PO PRN ×2 (00:26→11:01)
[2019-07-17] MEDS: ONDANSETRON 4 MG/2 ML VIAL IV PRN ×2 (00:43→18:23)
[2019-07-17] MEDS: ALBUTEROL/IPRATROPIUM 3 ML NEB RESP TX SCH ×4 (01:40→20:25)
[2019-07-17 06:05] LABS: Osmolality,Calculated 274.5 MOS/KG (273-304)
[2019-07-17] MEDS: CALCIUM ACETATE 667 MG CAPSULE PO SCH ×3 (08:43→17:04)
[2019-07-17] MEDS: hydrALAZINE 25 MG TABLET PO SCH ×2 (13:12→20:39)
[2019-07-17] MEDS: MAGNESIUM CHLORIDE 64 MG TABLET PO SCH ×2 (13:12→22:15)
[2019-07-17] MEDS: APIXABAN 5 MG TABLET PO SCH ×2 (13:12→22:16)
[2019-07-17] MEDS: HYDROXYCHLOROQUINE 200 MG TABLET PO SCH (13:12)
[2019-07-17] MEDS: ASPIRIN EC 81 MG TABLET PO SCH (13:12)
[2019-07-17] MEDS: DILTIAZEM CD 240 MG CAPSULE PO SCH (13:12)
[2019-07-17] MEDS: OMEGA 3 ACID ETHYL ESTERS 1 GM CAPSULE PO SCH ×2 (13:12→22:16)
[2019-07-17] MEDS: AMIODARONE 200 MG TABLET PO SCH ×2 (13:12→22:15)
[2019-07-17] MEDS: MULTIVITAMIN (BEROCCA) TABLET PO SCH (13:12)
[2019-07-17] MEDS: CHOLESTYRAMINE 4 GM PACK PO SCH ×2 (13:13→22:16)
[2019-07-17] MEDS: METOPROLOL TARTRATE 100 MG TABLET PO SCH ×2 (13:13→22:16)
[2019-07-17] MEDS: MIRTAZAPINE 15 MG TABLET PO SCH (13:15)
[2019-07-17] MEDS: SILVER SULFADIAZINE 1% CREAM 25 GM TUBE TOP SCH (14:04)
[2019-07-17] MEDS: BRIMONIDINE 0.2% OPH SOLN 5 ML BOTTLE BOTH EYES SCH ×2 (17:05→19:21)
[2019-07-17] MEDS: MORPHINE 4 MG/1 ML VIAL IV PRN ×2 (18:40→22:20)
[2019-07-17] MEDS ORDERED: VANCOMYCIN INJ 500 MG in SODIUM CHLORIDE 0.9% 250 ML IV PRN (21:31)
[2019-07-17] MEDS ORDERED: VANCOMYCIN INJ 1,500 MG in SODIUM CHLORIDE 0.9% 500 ML IV ONE (22:30)
[2019-07-18] MEDS: ONDANSETRON 4 MG/2 ML VIAL IV PRN (01:13)
[2019-07-18] MEDS: ALBUTEROL/IPRATROPIUM 3 ML NEB RESP TX SCH ×4 (02:04→19:03)
[2019-07-18] MEDS: MORPHINE 4 MG/1 ML VIAL IV PRN ×2 (04:08→16:48)
[2019-07-18] MEDS: BRIMONIDINE 0.2% OPH SOLN 5 ML BOTTLE BOTH EYES SCH ×2 (07:10→18:22)
[2019-07-18 08:03] LABS: Basophils % 0.3 % (0.0-0.8); Eosinophils # 0.2 10*3/uL (0.0-0.87); Eosinophils % 2.8 % (0.00-10.9); Hematocrit 34.5 VOL% (35.7-47.0); Hemoglobin 10.7 GM/DL (12.0-16.0); Immature Granulocytes % 0.6 %; Immature Granulocytes Absolute 0.04 #; Lymphocytes # 0.5 10*3/uL (1.4-4.0); Lymphocytes % 7.3 % (21.3-54.2); Mean Corpuscular Volume 88.5 FL (87-102); Mean Platelet Volume 11.4 FL (9.6-12.0); Monocytes % 11.1 % (1.7-12.7); Neutrophils % 77.9 % (38.7-73.9); Platelet Count 134 T/CUMM (130-400); Red Cell Distribution Width 17.2 % (9.3-17.3); White Blood Count 6.8 T/CUMM (4-12)
[2019-07-18 08:15] LABS: Calcium 8.6 MG/DL (8.5-10.1); Osmolality,Calculated 271.5 MOS/KG (273-304)
[2019-07-18] MEDS: MULTIVITAMIN (BEROCCA) TABLET PO SCH (08:33)
[2019-07-18] MEDS: ASPIRIN EC 81 MG TABLET PO SCH (08:34)
[2019-07-18] MEDS: CALCIUM ACETATE 667 MG CAPSULE PO SCH ×3 (08:34→16:44)
[2019-07-18] MEDS: METOPROLOL TARTRATE 100 MG TABLET PO SCH ×2 (08:34→20:34)
[2019-07-18] MEDS: MAGNESIUM CHLORIDE 64 MG TABLET PO SCH ×2 (08:34→20:35)
[2019-07-18] MEDS: CHOLESTYRAMINE 4 GM PACK PO SCH ×2 (08:34→20:34)
[2019-07-18] MEDS: APIXABAN 5 MG TABLET PO SCH ×2 (08:35→20:34)
[2019-07-18] MEDS: DILTIAZEM CD 240 MG CAPSULE PO SCH (08:35)
[2019-07-18] MEDS: AMIODARONE 200 MG TABLET PO SCH ×2 (08:35→20:34)
[2019-07-18] MEDS: OMEGA 3 ACID ETHYL ESTERS 1 GM CAPSULE PO SCH ×2 (08:36→20:34)
[2019-07-18] MEDS: HYDROXYCHLOROQUINE 200 MG TABLET PO SCH (08:36)
[2019-07-18] MEDS ORDERED: VANCOMYCIN INJ 500 MG in SODIUM CHLORIDE 0.9% 100 ML IV ONE (10:00)
[2019-07-18] MEDS: hydrALAZINE 25 MG TABLET PO SCH ×2 (12:16→20:34)
[2019-07-18] MEDS: traMADol 50 MG TABLET PO PRN (15:41)
[2019-07-18] MEDS: SILVER SULFADIAZINE 1% CREAM 25 GM TUBE TOP SCH (18:22)
[2019-07-18] MEDS: ONDANSETRON 4 MG TABLET PO PRN (18:23)
[2019-07-18] MEDS: MORPHINE 4 MG/1 ML VIAL IM PRN ×2 (20:04→23:58)
[2019-07-19] MEDS: MORPHINE 4 MG/1 ML VIAL IM PRN ×3 (03:28→16:35)
[2019-07-19] MEDS: ALBUTEROL/IPRATROPIUM 3 ML NEB RESP TX SCH ×4 (04:40→20:01)
[2019-07-19] MEDS: BRIMONIDINE 0.2% OPH SOLN 5 ML BOTTLE BOTH EYES SCH ×2 (05:22→18:07)
[2019-07-19] MEDS: OMEGA 3 ACID ETHYL ESTERS 1 GM CAPSULE PO SCH ×3 (08:58→22:15)
[2019-07-19] MEDS: MIRTAZAPINE 15 MG TABLET PO SCH ×2 (08:58→12:46)
[2019-07-19] MEDS: MULTIVITAMIN (BEROCCA) TABLET PO SCH ×2 (08:58→12:45)
[2019-07-19] MEDS: CALCIUM ACETATE 667 MG CAPSULE PO SCH ×4 (08:58→16:38)
[2019-07-19] MEDS: ASPIRIN EC 81 MG TABLET PO SCH ×2 (08:58→12:45)
[2019-07-19] MEDS: MAGNESIUM CHLORIDE 64 MG TABLET PO SCH ×3 (08:58→22:15)
[2019-07-19] MEDS: HYDROXYCHLOROQUINE 200 MG TABLET PO SCH ×2 (08:58→12:46)
[2019-07-19] MEDS: METOPROLOL TARTRATE 100 MG TABLET PO SCH ×3 (08:59→22:16)
[2019-07-19] MEDS: CHOLESTYRAMINE 4 GM PACK PO SCH ×4 (08:59→22:20)
[2019-07-19] MEDS: APIXABAN 5 MG TABLET PO SCH ×3 (08:59→22:16)
[2019-07-19] MEDS: AMIODARONE 200 MG TABLET PO SCH ×3 (08:59→22:16)
[2019-07-19] MEDS: SILVER SULFADIAZINE 1% CREAM 25 GM TUBE TOP SCH ×2 (09:00→12:46)
[2019-07-19] MEDS: DILTIAZEM CD 240 MG CAPSULE PO SCH ×2 (09:05→12:46)
[2019-07-19] MEDS: ONDANSETRON 4 MG TABLET PO PRN ×2 (12:08→17:35)
[2019-07-19 12:24] LABS: Calcium 9.2 MG/DL (8.5-10.1); Osmolality,Calculated 270.8 MOS/KG (273-304)
[2019-07-19] MEDS: hydrALAZINE 25 MG TABLET PO SCH ×2 (12:51→22:16)
[2019-07-20] MEDS: ALBUTEROL/IPRATROPIUM 3 ML NEB RESP TX SCH ×4 (01:08→20:43)
[2019-07-20] MEDS: MORPHINE 4 MG/1 ML VIAL IM PRN ×2 (02:04→07:48)
[2019-07-20] MEDS: BRIMONIDINE 0.2% OPH SOLN 5 ML BOTTLE BOTH EYES SCH ×2 (05:11→18:12)
[2019-07-20 05:41] LABS: Calcium 8.9 MG/DL (8.5-10.1); Osmolality,Calculated 273.9 MOS/KG (273-304)
[2019-07-20] MEDS ORDERED: HEPARIN/NACL 0.9% 2 UNITS/ML 500 ML IV ONE (09:33)
[2019-07-20] MEDS ORDERED: DOPamine 800 MG/250 ML PREMIX IV ONE (09:36)
[2019-07-20] MEDS ORDERED: PROPOFOL 1,000 MG/100 ML BOTTLE IV ONE (09:36)
[2019-07-20] MEDS ORDERED: ETOMIDATE 20 MG/10 ML VIAL IV ONE ×3 (09:36→09:43)
[2019-07-20] MEDS ORDERED: DEXTROSE 10% 250 ML IV ONE (09:39)
[2019-07-20] MEDS ORDERED: INSULIN REGULAR 100 UNIT/ML ONE (09:42)
[2019-07-20] MEDS ORDERED: DEXTROSE 10% 25 GM/250 ML BAG IV ONE ×2 (09:43→09:46)
[2019-07-20] MEDS ORDERED: INSULIN REGULAR 100 UNIT/ML IV ONE ×2 (09:43→09:44)
[2019-07-20] MEDS ORDERED: CALCIUM GLUCONATE 2,000 MG in SODIUM CHLORIDE 0.9% 100 ML IV ONE (09:43)
[2019-07-20] MEDS ORDERED: DOPamine 800 MG/250 ML PREMIX IV PRN (09:47)
[2019-07-20] MEDS: ASPIRIN EC 81 MG TABLET PO SCH (11:20)
[2019-07-20] MEDS: CHOLESTYRAMINE 4 GM PACK PO SCH ×2 (11:20→21:36)
[2019-07-20] MEDS: CALCIUM ACETATE 667 MG CAPSULE PO SCH ×3 (11:20→16:47)
[2019-07-20] MEDS: APIXABAN 5 MG TABLET PO SCH ×2 (11:20→21:36)
[2019-07-20] MEDS: SILVER SULFADIAZINE 1% CREAM 25 GM TUBE TOP SCH (11:20)
[2019-07-20] MEDS: AMIODARONE 200 MG TABLET PO SCH ×2 (11:20→21:36)
[2019-07-20] MEDS: OMEGA 3 ACID ETHYL ESTERS 1 GM CAPSULE PO SCH ×2 (11:20→21:36)
[2019-07-20] MEDS: MAGNESIUM CHLORIDE 64 MG TABLET PO SCH ×2 (11:20→21:36)
[2019-07-20] MEDS: HYDROXYCHLOROQUINE 200 MG TABLET PO SCH (11:20)
[2019-07-20] MEDS: MULTIVITAMIN (BEROCCA) TABLET PO SCH (11:20)
[2019-07-20] MEDS: DILTIAZEM CD 240 MG CAPSULE PO SCH (11:22)
[2019-07-20] MEDS: METOPROLOL TARTRATE 100 MG TABLET PO SCH (11:22)
[2019-07-20 11:27] LABS: ABG HCO3 16.4 MMOL/L (20-26); ABG Oxygen Saturation 99.5 % (95-100); ABG PCO2 36.5 MM HG (35-48); ABG PH 7.259 (7.35-7.45); ABG TCO2 15.3 MMOL/L (23-27)
[2019-07-20] MEDS: hydrALAZINE 25 MG TABLET PO SCH ×2 (11:50→20:21)
[2019-07-20] MEDS: PROPOFOL 1,000 MG/100 ML BOTTLE IV SCH ×3 (12:41→21:00)
[2019-07-20] MEDS: MEROPENEM 500 MG in SODIUM CHLORIDE 0.9% 100 ML IV SCH ×2 (12:41→21:36)
[2019-07-20] MEDS ORDERED: VANCOMYCIN INJ 500 MG in SODIUM CHLORIDE 0.9% 250 ML IV ONE (17:00)
[2019-07-21] MEDS: ALBUTEROL/IPRATROPIUM 3 ML NEB RESP TX SCH ×4 (02:06→19:35)
[2019-07-21] MEDS: PROPOFOL 1,000 MG/100 ML BOTTLE IV SCH ×3 (03:14→13:33)
[2019-07-21 04:02] LABS: ABG Base Excess -2.4 MMOL/L (-2.5-2.5); ABG HCO3 22.4 MMOL/L (20-26); ABG Oxygen Saturation 99.8 % (95-100); ABG PH 7.471 (7.35-7.45); ABG TCO2 18.7 MMOL/L (23-27)
[2019-07-21 04:26] LABS: Basophils % 0.5 % (0.0-0.8); Eosinophils # 0.2 10*3/uL (0.0-0.87); Eosinophils % 2.9 % (0.00-10.9); Hematocrit 27.8 VOL% (35.7-47.0); Hemoglobin 8.7 GM/DL (12.0-16.0); Immature Granulocytes % 0.8 %; Immature Granulocytes Absolute 0.05 #; Lymphocytes # 0.4 10*3/uL (1.4-4.0); Lymphocytes % 6.8 % (21.3-54.2); Mean Corpuscular HGB Conc 31.3 GM/DL (32-36); Mean Corpuscular Volume 84.5 FL (87-102); Mean Platelet Volume 11.6 FL (9.6-12.0); Monocytes % 12.6 % (1.7-12.7); Neutrophils % 76.4 % (38.7-73.9); Platelet Count 175 T/CUMM (130-400); Red Blood Count 3.29 MC/CUMM (3.8-5.5); Red Cell Distribution Width 16.5 % (9.3-17.3); White Blood Count 6.2 T/CUMM (4-12)
[2019-07-21] MEDS: BRIMONIDINE 0.2% OPH SOLN 5 ML BOTTLE BOTH EYES SCH ×2 (05:43→17:42)
[2019-07-21] MEDS: SILVER SULFADIAZINE 1% CREAM 25 GM TUBE TOP SCH ×2 (05:49→09:06)
[2019-07-21] MEDS: CALCIUM ACETATE 667 MG CAPSULE PO SCH ×3 (07:40→16:11)
[2019-07-21] MEDS: MIRTAZAPINE 15 MG TABLET PO SCH (09:05)
[2019-07-21] MEDS: OMEGA 3 ACID ETHYL ESTERS 1 GM CAPSULE PO SCH ×2 (10:50→20:14)
[2019-07-21] MEDS: MEROPENEM 500 MG in SODIUM CHLORIDE 0.9% 100 ML IV SCH ×2 (10:50→20:15)
[2019-07-21] MEDS: AMIODARONE 200 MG TABLET PO SCH ×2 (10:51→20:15)
[2019-07-21] MEDS: ASPIRIN CHEW 81 MG TABLET PO SCH (10:51)
[2019-07-21] MEDS: MULTIVITAMIN (BEROCCA) TABLET PO SCH (10:51)
[2019-07-21] MEDS: APIXABAN 5 MG TABLET PO SCH ×2 (10:51→20:15)
[2019-07-21] MEDS: MAGNESIUM CHLORIDE 64 MG TABLET PO SCH ×2 (10:51→20:15)
[2019-07-21] MEDS: HYDROXYCHLOROQUINE 200 MG TABLET PO SCH (10:51)
[2019-07-21] MEDS: CHOLESTYRAMINE 4 GM PACK PO SCH ×2 (10:52→20:15)
[2019-07-21] MEDS: METOPROLOL TARTRATE 25 MG TABLET PO SCH ×2 (10:52→20:15)
[2019-07-21 11:46] LABS: Calcium 8.6 MG/DL (8.5-10.1); Osmolality,Calculated 271.4 MOS/KG (273-304)
[2019-07-21] MEDS: hydrALAZINE 25 MG TABLET PO SCH ×3 (12:06→20:15)
[2019-07-21] MEDS ORDERED: PHENYLEPHRINE 1 MG/10 ML SYRINGE IV ONE (13:12)
[2019-07-21] MEDS ORDERED: MIDAZOLAM 2 MG/2 ML VIAL ONE (13:12)
[2019-07-21] MEDS ORDERED: SEVOFLURANE 1 UNIT/15 MINUTE INH ONE (13:12)
[2019-07-21] MEDS ORDERED: SODIUM CHLORIDE 0.9% 100 ML IV ONE (13:13)
[2019-07-21] MEDS ORDERED: ROCURONIUM 100 MG/10 ML VIAL IV ONE (13:13)
[2019-07-22] MEDS ORDERED: DEXTROSE 10% 250 ML BAG IV PRN (00:15)
[2019-07-22] MEDS ORDERED: DEXTROSE 10% 250 ML IV ONE (00:16)
[2019-07-22] MEDS: ALBUTEROL/IPRATROPIUM 3 ML NEB RESP TX SCH ×4 (01:12→20:00)
[2019-07-22] MEDS: PROPOFOL 1,000 MG/100 ML BOTTLE IV SCH ×2 (02:37→11:56)
[2019-07-22] MEDS: MORPHINE 4 MG/1 ML VIAL IV PRN ×4 (03:43→22:10)
[2019-07-22 04:28] LABS: Basophils % 0.4 % (0.0-0.8); Eosinophils # 0.2 10*3/uL (0.0-0.87); Hematocrit 27.5 VOL% (35.7-47.0); Hemoglobin 8.7 GM/DL (12.0-16.0); Immature Granulocytes % 0.6 %; Immature Granulocytes Absolute 0.06 #; Lymphocytes % 9.5 % (21.3-54.2); Mean Corpuscular HGB Conc 31.6 GM/DL (32-36); Mean Corpuscular Volume 83.6 FL (87-102); Mean Platelet Volume 11.3 FL (9.6-12.0); Monocytes % 13.3 % (1.7-12.7); Neutrophils % 74.2 % (38.7-73.9); Platelet Count 208 T/CUMM (130-400); Red Blood Count 3.29 MC/CUMM (3.8-5.5); Red Cell Distribution Width 16.5 % (9.3-17.3); White Blood Count 10.1 T/CUMM (4-12)
[2019-07-22 04:44] LABS: Calcium 8.7 MG/DL (8.5-10.1); Osmolality,Calculated 273.4 MOS/KG (273-304)
[2019-07-22 06:19] LABS: ABG Base Excess -5.2 MMOL/L (-2.5-2.5); ABG HCO3 18.1 MMOL/L (20-26); ABG PCO2 27.6 MM HG (35-48); ABG PH 7.435 (7.35-7.45); ABG PO2 189.8 MM HG (80-95)
[2019-07-22] MEDS: BRIMONIDINE 0.2% OPH SOLN 5 ML BOTTLE BOTH EYES SCH ×2 (06:26→18:33)
[2019-07-22] MEDS: CALCIUM ACETATE 667 MG CAPSULE PO SCH ×3 (07:37→17:06)
[2019-07-22] MEDS: APIXABAN 5 MG TABLET PO SCH (08:22)
[2019-07-22] MEDS: MAGNESIUM CHLORIDE 64 MG TABLET PO SCH ×2 (08:22→20:12)
[2019-07-22] MEDS: MULTIVITAMIN (BEROCCA) TABLET PO SCH (08:22)
[2019-07-22] MEDS: AMIODARONE 200 MG TABLET PO SCH (08:22)
[2019-07-22] MEDS: OMEGA 3 ACID ETHYL ESTERS 1 GM CAPSULE PO SCH ×2 (08:23→20:12)
[2019-07-22] MEDS: MEROPENEM 500 MG in SODIUM CHLORIDE 0.9% 100 ML IV SCH (08:23)
[2019-07-22] MEDS: CHOLESTYRAMINE 4 GM PACK PO SCH ×2 (08:23→20:13)
[2019-07-22] MEDS: METOPROLOL TARTRATE 25 MG TABLET PO SCH ×2 (08:23→20:12)
[2019-07-22] MEDS: ASPIRIN CHEW 81 MG TABLET PO SCH (08:23)
[2019-07-22 11:13] LABS: ABG Base Excess -1.3 MMOL/L (-2.5-2.5); ABG PCO2 31.5 MM HG (35-48); ABG PH 7.461 (7.35-7.45); ABG PO2 184.5 MM HG (80-95); ABG TCO2 22.9 MMOL/L (23-27); Pt O2 Delivery Device Ventilator
[2019-07-22] MEDS: SILVER SULFADIAZINE 1% CREAM 25 GM TUBE TOP SCH (11:13)
[2019-07-22] MEDS ORDERED: SILVER NITRATE STICK 1 EACH TOP ONE (11:28)
[2019-07-22] MEDS ORDERED: DEXTROSE 50% 25 GM/50 ML VIAL IV PRN (12:54)
[2019-07-22] MEDS ORDERED: GLUCAGON 1 MG VIAL IM PRN (12:54)
[2019-07-22] MEDS ORDERED: VANCOMYCIN INJ 500 MG in SODIUM CHLORIDE 0.9% 100 ML IV ONE (13:00)
[2019-07-22] MEDS: oxyCODONE/ACETAMINOPHEN 5-325 MG TABLET PO PRN ×2 (14:05→19:34)
[2019-07-22] MEDS: hydrALAZINE 25 MG TABLET PO SCH ×2 (14:05→20:12)
[2019-07-22] MEDS: BISACODYL 5 MG TABLET PO SCH (14:15)
[2019-07-22] MEDS: INSULIN REGULAR 100 UNIT/ML SUBCUT SCH ×2 (16:49→20:13)
[2019-07-23] MEDS: oxyCODONE/ACETAMINOPHEN 5-325 MG TABLET PO PRN ×3 (01:12→18:00)
[2019-07-23] MEDS: ALBUTEROL/IPRATROPIUM 3 ML NEB RESP TX SCH ×4 (01:32→20:14)
[2019-07-23 04:17] LABS: ABG Base Excess -1.7 MMOL/L (-2.5-2.5); ABG HCO3 23.6 MMOL/L (20-26); ABG PCO2 42.7 MM HG (35-48); ABG PH 7.361 (7.35-7.45); ABG PO2 75.6 MM HG (80-95); ABG TCO2 24.9 MMOL/L (23-27)
[2019-07-23 04:27] LABS: Basophils # 0.1 10*3/uL (0.0-0.2); Basophils % 0.7 % (0.0-0.8); Eosinophils # 0.3 10*3/uL (0.0-0.87); Eosinophils % 3.7 % (0.00-10.9); Hematocrit 23.8 VOL% (35.7-47.0); Hemoglobin 7.2 GM/DL (12.0-16.0); Immature Granulocytes % 0.7 %; Immature Granulocytes Absolute 0.05 #; Lymphocytes # 0.7 10*3/uL (1.4-4.0); Lymphocytes % 9.1 % (21.3-54.2); Mean Corpuscular HGB Conc 30.3 GM/DL (32-36); Mean Corpuscular Volume 86.5 FL (87-102); Mean Platelet Volume 11.1 FL (9.6-12.0); Monocytes % 17.2 % (1.7-12.7); Neutrophils % 68.6 % (38.7-73.9); Platelet Count 188 T/CUMM (130-400); Red Blood Count 2.75 MC/CUMM (3.8-5.5); Red Cell Distribution Width 16.8 % (9.3-17.3); White Blood Count 7.6 T/CUMM (4-12)
[2019-07-23 04:45] LABS: Calcium 8.2 MG/DL (8.5-10.1)
[2019-07-23] MEDS: MORPHINE 4 MG/1 ML VIAL IV PRN ×2 (04:53→08:49)
[2019-07-23 04:54] LABS: Eosinophils 3 % (0-10); Hypochromasia 1+; Lymphocytes 9 % (20-55); Ovalocytes Slight; Platelet Estimate Adequate; Segmented Neutrophils 73 % (50-85); Total Cells Counted 100
[2019-07-23] MEDS: BRIMONIDINE 0.2% OPH SOLN 5 ML BOTTLE BOTH EYES SCH ×2 (05:56→18:42)
[2019-07-23] MEDS: INSULIN REGULAR 100 UNIT/ML SUBCUT SCH ×4 (07:40→20:20)
[2019-07-23] MEDS ORDERED: APIXABAN 5 MG TABLET PO SCH (09:00)
[2019-07-23] MEDS: MULTIVITAMIN (BEROCCA) TABLET PO SCH (09:21)
[2019-07-23] MEDS: BISACODYL 5 MG TABLET PO SCH (09:33)
[2019-07-23] MEDS: AMIODARONE 200 MG TABLET PO SCH (09:33)
[2019-07-23] MEDS: OMEGA 3 ACID ETHYL ESTERS 1 GM CAPSULE PO SCH ×2 (09:33→20:20)
[2019-07-23] MEDS: MAGNESIUM CHLORIDE 64 MG TABLET PO SCH ×2 (09:34→20:20)
[2019-07-23] MEDS: CALCIUM ACETATE 667 MG CAPSULE PO SCH ×3 (09:34→17:57)
[2019-07-23] MEDS: MIRTAZAPINE 15 MG TABLET PO SCH (09:34)
[2019-07-23] MEDS: METOPROLOL TARTRATE 25 MG TABLET PO SCH (09:35)
[2019-07-23] MEDS: MEROPENEM 500 MG in SODIUM CHLORIDE 0.9% 100 ML IV SCH (09:54)
[2019-07-23] MEDS: POLYETHYLENE GLYCOL POWDER 17 GM PACK PO SCH (09:56)
[2019-07-23] MEDS: CHOLESTYRAMINE 4 GM PACK PO SCH ×2 (09:56→20:20)
[2019-07-23] MEDS ORDERED: NALOXONE 0.4 MG/ML VIAL IV ONE (10:57)
[2019-07-23] MEDS: SILVER SULFADIAZINE 1% CREAM 25 GM TUBE TOP SCH (11:30)
[2019-07-23] MEDS: hydrALAZINE 25 MG TABLET PO SCH ×2 (12:35→20:19)
[2019-07-23] MEDS: CEFEPIME 1,000 MG in SYRINGE 1 EACH IV SCH (14:52)
[2019-07-23] MEDS ORDERED: SODIUM CHLORIDE 0.9% 1,000 ML IV PRN (15:15)
[2019-07-23] MEDS: SODIUM HYPOCHLORITE 0.25% IRRIG 473 ML BOTTLE TOP SCH (18:24)
[2019-07-23] MEDS ORDERED: METOPROLOL TARTRATE 25 MG TABLET PO SCH (20:11)
[2019-07-24] MEDS: ALBUTEROL/IPRATROPIUM 3 ML NEB RESP TX SCH ×4 (00:46→19:49)
[2019-07-24 04:06] LABS: Basophils % 0.3 % (0.0-0.8); Eosinophils # 0.1 10*3/uL (0.0-0.87); Eosinophils % 1.2 % (0.00-10.9); Hematocrit 23.9 VOL% (35.7-47.0); Hemoglobin 7.2 GM/DL (12.0-16.0); Immature Granulocytes % 0.9 %; Immature Granulocytes Absolute 0.09 #; Lymphocytes # 0.7 10*3/uL (1.4-4.0); Lymphocytes % 6.4 % (21.3-54.2); Mean Corpuscular HGB Conc 30.1 GM/DL (32-36); Mean Corpuscular Volume 86.9 FL (87-102); Monocytes % 12.3 % (1.7-12.7); Neutrophils % 78.9 % (38.7-73.9); Platelet Count 213 T/CUMM (130-400); Red Blood Count 2.75 MC/CUMM (3.8-5.5); Red Cell Distribution Width 17.1 % (9.3-17.3); White Blood Count 10.2 T/CUMM (4-12)
[2019-07-24] MEDS: oxyCODONE/ACETAMINOPHEN 5-325 MG TABLET PO PRN ×2 (04:06→13:35)
[2019-07-24 04:20] LABS: Calcium 8.9 MG/DL (8.5-10.1); Osmolality,Calculated 284.7 MOS/KG (273-304)
[2019-07-24] MEDS: BRIMONIDINE 0.2% OPH SOLN 5 ML BOTTLE BOTH EYES SCH ×2 (06:27→17:49)
[2019-07-24 06:58] LABS: ABG Base Excess 2.3 MMOL/L (-2.5-2.5); ABG HCO3 26.5 MMOL/L (20-26); ABG PCO2 39.4 MM HG (35-48); ABG PH 7.437 (7.35-7.45); ABG PO2 96.6 MM HG (80-95); ABG TCO2 24.8 MMOL/L (23-27)
[2019-07-24 06:59] LABS: ABG Oxygen Saturation 97.9 % (95-100)
[2019-07-24] MEDS: INSULIN REGULAR 100 UNIT/ML SUBCUT SCH ×4 (07:50→22:00)
[2019-07-24] MEDS: MAGNESIUM CHLORIDE 64 MG TABLET PO SCH ×2 (09:04→20:18)
[2019-07-24] MEDS: ONDANSETRON 4 MG/2 ML VIAL IV PRN ×3 (09:05→17:47)
[2019-07-24] MEDS: MULTIVITAMIN (BEROCCA) TABLET PO SCH (09:05)
[2019-07-24] MEDS: CEFEPIME 1,000 MG in SYRINGE 1 EACH IV SCH (09:20)
[2019-07-24] MEDS: SODIUM HYPOCHLORITE 0.25% IRRIG 473 ML BOTTLE TOP SCH (09:20)
[2019-07-24] MEDS: POLYETHYLENE GLYCOL POWDER 17 GM PACK PO SCH (09:20)
[2019-07-24] MEDS: CALCIUM ACETATE 667 MG CAPSULE PO SCH ×3 (09:20→17:07)
[2019-07-24] MEDS: CHOLESTYRAMINE 4 GM PACK PO SCH (09:20)
[2019-07-24] MEDS: OMEGA 3 ACID ETHYL ESTERS 1 GM CAPSULE PO SCH ×2 (09:20→20:18)
[2019-07-24] MEDS: AMIODARONE 200 MG TABLET PO SCH ×2 (09:20→13:35)
[2019-07-24] MEDS: METOPROLOL TARTRATE 50 MG TABLET PO SCH ×3 (09:20→20:18)
[2019-07-24] MEDS: BISACODYL 5 MG TABLET PO SCH (09:20)
[2019-07-24] MEDS ORDERED: BISACODYL 5 MG TABLET PO PRN (10:07)
[2019-07-24 12:18] LABS: Hepatitis B Core IgM Quant 0.17 Index; Hepatitis B Surface Ag Quant < 0.10 Index; Hepatitis B Surface Ag Result Negative (Negative); Hepatitis C Virus Ab Quant 0.09 Index; Hepatitis C Virus Ab Result Negative (Negative)
[2019-07-24] MEDS: PANTOPRAZOLE 40 MG TABLET PO SCH ×2 (13:35→20:18)
[2019-07-24] MEDS: SILVER SULFADIAZINE 1% CREAM 25 GM TUBE TOP SCH (14:35)
[2019-07-24] MEDS ORDERED: PROMETHAZINE 25 MG/1 ML VIAL IM PRN (21:11)
[2019-07-24] MEDS: ONDANSETRON 4 MG TABLET PO PRN (21:18)
[2019-07-25] MEDS: GABAPENTIN 100 MG CAPSULE PO SCH ×2 (00:09→10:05)
[2019-07-25] MEDS: ALBUTEROL/IPRATROPIUM 3 ML NEB RESP TX SCH ×2 (01:16→07:29)
[2019-07-25] MEDS ORDERED: SODIUM CHLORIDE 0.9% 250 ML IV ONE (02:00)
[2019-07-25] MEDS ORDERED: METOPROLOL TARTRATE 5 MG/5 ML VIAL IV ONE (02:22)
[2019-07-25 03:11] LABS: Basophils % 0.2 % (0.0-0.8); Hematocrit 26.7 VOL% (35.7-47.0); Hemoglobin 8.4 GM/DL (12.0-16.0); Immature Granulocytes % 0.7 %; Lymphocytes # 0.3 10*3/uL (1.4-4.0); Lymphocytes % 2.3 % (21.3-54.2); Mean Corpuscular HGB Conc 31.5 GM/DL (32-36); Mean Corpuscular Volume 85.9 FL (87-102); Mean Platelet Volume 10.2 FL (9.6-12.0); Monocytes % 3.6 % (1.7-12.7); Neutrophils % 93.2 % (38.7-73.9); Platelet Count 239 T/CUMM (130-400); Red Blood Count 3.11 MC/CUMM (3.8-5.5); Red Cell Distribution Width 16.4 % (9.3-17.3); White Blood Count 15.1 T/CUMM (4-12)
[2019-07-25 03:40] LABS: Albumin 1.7 G/DL (3.4-5.0); Calcium 8.6 MG/DL (8.5-10.1); Osmolality,Calculated 284.5 MOS/KG (273-304)
[2019-07-25] MEDS: oxyCODONE/ACETAMINOPHEN 5-325 MG TABLET PO PRN ×2 (04:31→12:35)
[2019-07-25] MEDS: ONDANSETRON 4 MG/2 ML VIAL IV PRN ×2 (04:37→09:14)
[2019-07-25 05:33] LABS: Anisocytosis 1+; Band Neutrophils 4 % (0-10); Lymphocytes 4 % (20-55); Ovalocytes 1+; Platelet Estimate Adequate; Segmented Neutrophils 90 % (50-85); Tear Drop Cells Few; Total Cells Counted 100
[2019-07-25] MEDS: BRIMONIDINE 0.2% OPH SOLN 5 ML BOTTLE BOTH EYES SCH ×2 (06:03→17:23)
[2019-07-25 06:27] LABS: Basophils % 0.2 % (0.0-0.8); Hematocrit 26.7 VOL% (35.7-47.0); Hemoglobin 8.4 GM/DL (12.0-16.0); Immature Granulocytes % 0.9 %; Immature Granulocytes Absolute 0.15 #; Lymphocytes # 0.6 10*3/uL (1.4-4.0); Lymphocytes % 3.7 % (21.3-54.2); Mean Corpuscular HGB Conc 31.5 GM/DL (32-36); Mean Platelet Volume 10.2 FL (9.6-12.0); Monocytes % 4.9 % (1.7-12.7); Neutrophils % 90.3 % (38.7-73.9); Platelet Count 256 T/CUMM (130-400); Red Blood Count 3.14 MC/CUMM (3.8-5.5); Red Cell Distribution Width 16.6 % (9.3-17.3); White Blood Count 17.2 T/CUMM (4-12)
[2019-07-25 06:55] LABS: Lymphocytes 3 % (20-55); Nucleated Red Blood Cells 1 (0-5); Segmented Neutrophils 95 % (50-85); Total Cells Counted 100
[2019-07-25 06:56] LABS: Anisocytosis Slight; Hypochromasia Slight; Microcytosis 1+
[2019-07-25 06:57] LABS: Platelet Estimate Normal; Polychromasia Slight; Target Cells Slight
[2019-07-25] MEDS: INSULIN REGULAR 100 UNIT/ML SUBCUT SCH ×4 (07:41→22:39)
[2019-07-25] MEDS: CEFEPIME 1,000 MG in SYRINGE 1 EACH IV SCH (09:16)
[2019-07-25] MEDS: AMIODARONE 200 MG TABLET PO SCH ×3 (10:05→22:49)
[2019-07-25] MEDS: METOPROLOL TARTRATE 50 MG TABLET PO SCH (10:05)
[2019-07-25] MEDS: PANTOPRAZOLE 40 MG TABLET PO SCH (10:05)
[2019-07-25] MEDS: CALCIUM ACETATE 667 MG CAPSULE PO SCH ×4 (10:07→16:24)
[2019-07-25] MEDS: MAGNESIUM CHLORIDE 64 MG TABLET PO SCH ×3 (10:07→22:31)
[2019-07-25] MEDS: OMEGA 3 ACID ETHYL ESTERS 1 GM CAPSULE PO SCH ×2 (10:07→22:31)
[2019-07-25] MEDS: MIRTAZAPINE 15 MG TABLET PO SCH (10:07)
[2019-07-25] MEDS: MULTIVITAMIN (BEROCCA) TABLET PO SCH ×2 (10:07→10:36)
[2019-07-25] MEDS: POLYETHYLENE GLYCOL POWDER 17 GM PACK PO SCH (10:07)
[2019-07-25] MEDS ORDERED: AMIODARONE INJ 150 MG in DEXTROSE 5% 100 ML IV ONE (11:37)
[2019-07-25] MEDS ORDERED: LEVALBUTEROL 1.25 MG/3 ML NEB RESP TX PRN (11:59)
[2019-07-25] MEDS ORDERED: AMIODARONE INJ 450 MG in DEXTROSE 5% 241 ML IV SCH (12:00)
[2019-07-25] MEDS: SILVER SULFADIAZINE 1% CREAM 25 GM TUBE TOP SCH (12:22)
[2019-07-25] MEDS: SUCRALFATE 1 GM TABLET PO SCH ×3 (12:36→22:32)
[2019-07-25] MEDS: PANTOPRAZOLE 40 MG VIAL IV SCH ×2 (12:39→22:13)
[2019-07-25 13:22] LABS: Troponin I 0.098 NG/ML (0.00-0.045)
[2019-07-25] MEDS: BISOPROLOL 5 MG TABLET PO SCH ×2 (14:55→22:32)
[2019-07-25] MEDS: SODIUM HYPOCHLORITE 0.25% IRRIG 473 ML BOTTLE TOP SCH (17:23)
[2019-07-25] MEDS: AMIODARONE INJ 450 MG in DEXTROSE 5% 241 ML IV SCH (22:15)
[2019-07-26 05:08] LABS: Basophils % 0.1 % (0.0-0.8); Eosinophils % 0.1 % (0.00-10.9); Hematocrit 20.5 VOL% (35.7-47.0); Immature Granulocytes % 0.8 %; Immature Granulocytes Absolute 0.11 #; Lymphocytes # 1.2 10*3/uL (1.4-4.0); Lymphocytes % 8.2 % (21.3-54.2); Mean Corpuscular HGB Conc 30.7 GM/DL (32-36); Mean Corpuscular Volume 87.6 FL (87-102); Mean Platelet Volume 10.7 FL (9.6-12.0); Monocytes % 10.1 % (1.7-12.7); Neutrophils % 80.7 % (38.7-73.9); Platelet Count 230 T/CUMM (130-400); Red Blood Count 2.34 MC/CUMM (3.8-5.5); Red Cell Distribution Width 17.1 % (9.3-17.3); White Blood Count 14.7 T/CUMM (4-12)
[2019-07-26 05:12] LABS: Hemoglobin 6.3 GM/DL (12.0-16.0)
[2019-07-26 05:30] LABS: Albumin 1.6 G/DL (3.4-5.0); Calcium 8.6 MG/DL (8.5-10.1); Calcium 8.8 MG/DL (8.5-10.1)
[2019-07-26] MEDS ORDERED: SODIUM CHLORIDE 0.9% 1,000 ML IV PRN (05:31)
[2019-07-26] MEDS: BRIMONIDINE 0.2% OPH SOLN 5 ML BOTTLE BOTH EYES SCH ×2 (05:58→18:25)
[2019-07-26] MEDS: INSULIN REGULAR 100 UNIT/ML SUBCUT SCH ×4 (08:24→21:00)
[2019-07-26] MEDS: POLYETHYLENE GLYCOL POWDER 17 GM PACK PO SCH (09:18)
[2019-07-26] MEDS: OMEGA 3 ACID ETHYL ESTERS 1 GM CAPSULE PO SCH ×2 (09:18→20:20)
[2019-07-26] MEDS: SUCRALFATE 1 GM TABLET PO SCH ×4 (09:18→20:20)
[2019-07-26] MEDS: AMIODARONE 200 MG TABLET PO SCH ×2 (09:18→20:21)
[2019-07-26] MEDS: MAGNESIUM CHLORIDE 64 MG TABLET PO SCH ×2 (09:18→20:21)
[2019-07-26] MEDS: MULTIVITAMIN (BEROCCA) TABLET PO SCH (09:19)
[2019-07-26] MEDS: BISOPROLOL 5 MG TABLET PO SCH ×2 (09:19→20:20)
[2019-07-26] MEDS: CALCIUM ACETATE 667 MG CAPSULE PO SCH ×3 (09:19→17:47)
[2019-07-26] MEDS: PANTOPRAZOLE 40 MG VIAL IV SCH ×2 (09:19→20:22)
[2019-07-26] MEDS: SODIUM HYPOCHLORITE 0.25% IRRIG 473 ML BOTTLE TOP SCH (09:33)
[2019-07-26] MEDS: CEFEPIME 1,000 MG in SYRINGE 1 EACH IV SCH (09:33)
[2019-07-26] MEDS: SILVER SULFADIAZINE 1% CREAM 25 GM TUBE TOP SCH (09:33)
[2019-07-26] MEDS: AMIODARONE INJ 450 MG in DEXTROSE 5% 241 ML IV SCH (10:07)
[2019-07-26] MEDS: oxyCODONE/ACETAMINOPHEN 5-325 MG TABLET PO PRN ×2 (11:19→20:21)
[2019-07-26 23:50] LABS: Hematocrit 22.9 VOL% (35.7-47.0); Hemoglobin 7.4 GM/DL (12.0-16.0)
[2019-07-27] MEDS: oxyCODONE/ACETAMINOPHEN 5-325 MG TABLET PO PRN ×3 (03:45→15:14)
[2019-07-27 04:55] LABS: Basophils % 0.2 % (0.0-0.8); Eosinophils # 0.4 10*3/uL (0.0-0.87); Eosinophils % 3.5 % (0.00-10.9); Hematocrit 21.9 VOL% (35.7-47.0); Hemoglobin 6.8 GM/DL (12.0-16.0); Immature Granulocytes % 0.8 %; Lymphocytes # 1.5 10*3/uL (1.4-4.0); Lymphocytes % 11.9 % (21.3-54.2); Mean Corpuscular HGB Conc 31.1 GM/DL (32-36); Mean Corpuscular Volume 88.3 FL (87-102); Mean Platelet Volume 10.8 FL (9.6-12.0); Monocytes % 10.5 % (1.7-12.7); Neutrophils % 73.1 % (38.7-73.9); Platelet Count 206 T/CUMM (130-400); Red Blood Count 2.48 MC/CUMM (3.8-5.5); Red Cell Distribution Width 16.7 % (9.3-17.3); White Blood Count 12.2 T/CUMM (4-12)
[2019-07-27 05:18] LABS: Albumin 1.7 G/DL (3.4-5.0); Calcium 9.1 MG/DL (8.5-10.1); Osmolality,Calculated 286.1 MOS/KG (273-304)
[2019-07-27 05:19] LABS: Calcium 9.1 MG/DL (8.5-10.1)
[2019-07-27] MEDS: BRIMONIDINE 0.2% OPH SOLN 5 ML BOTTLE BOTH EYES SCH ×2 (06:10→18:37)
[2019-07-27] MEDS ORDERED: SODIUM CHLORIDE 0.9% 1,000 ML IV PRN (08:06)
[2019-07-27] MEDS ORDERED: EPOETIN ALFA 2,000 UNIT/1 ML VIAL IV PRN (08:10)
[2019-07-27] MEDS: OMEGA 3 ACID ETHYL ESTERS 1 GM CAPSULE PO SCH ×2 (08:33→20:28)
[2019-07-27] MEDS: AMIODARONE 200 MG TABLET PO SCH ×2 (08:33→20:29)
[2019-07-27] MEDS: SUCRALFATE 1 GM TABLET PO SCH ×4 (08:33→20:29)
[2019-07-27] MEDS: MULTIVITAMIN (BEROCCA) TABLET PO SCH (08:33)
[2019-07-27] MEDS: CALCIUM ACETATE 667 MG CAPSULE PO SCH ×3 (08:33→17:46)
[2019-07-27] MEDS: MAGNESIUM CHLORIDE 64 MG TABLET PO SCH ×2 (08:34→20:29)
[2019-07-27] MEDS: INSULIN REGULAR 100 UNIT/ML SUBCUT SCH ×4 (08:34→20:29)
[2019-07-27] MEDS: FLUTICASONE 50 MCG NASAL SPRAY 16 GM BOTTLE BOTH NARES SCH (08:34)
[2019-07-27] MEDS: MIRTAZAPINE 15 MG TABLET PO SCH (08:34)
[2019-07-27] MEDS: POLYETHYLENE GLYCOL POWDER 17 GM PACK PO SCH (08:35)
[2019-07-27] MEDS: CEFEPIME 1,000 MG in SYRINGE 1 EACH IV SCH (08:35)
[2019-07-27] MEDS: PANTOPRAZOLE 40 MG VIAL IV SCH ×2 (08:36→20:30)
[2019-07-27] MEDS: BISOPROLOL 5 MG TABLET PO SCH ×2 (08:39→20:28)
[2019-07-27] MEDS: SILVER SULFADIAZINE 1% CREAM 25 GM TUBE TOP SCH (13:30)
[2019-07-27] MEDS: SODIUM HYPOCHLORITE 0.25% IRRIG 473 ML BOTTLE TOP SCH (17:09)
[2019-07-28 04:34] LABS: Basophils % 0.5 % (0.0-0.8); Eosinophils # 0.4 10*3/uL (0.0-0.87); Eosinophils % 4.2 % (0.00-10.9); Hematocrit 31.4 VOL% (35.7-47.0); Hemoglobin 9.9 GM/DL (12.0-16.0); Immature Granulocytes % 0.7 %; Immature Granulocytes Absolute 0.06 #; Lymphocytes # 0.7 10*3/uL (1.4-4.0); Lymphocytes % 8.6 % (21.3-54.2); Mean Corpuscular HGB Conc 31.5 GM/DL (32-36); Mean Corpuscular Volume 88.2 FL (87-102); Mean Platelet Volume 10.6 FL (9.6-12.0); Monocytes % 12.2 % (1.7-12.7); NRBC # 0.03 10*3/uL; Neutrophils % 73.8 % (38.7-73.9); Platelet Count 173 T/CUMM (130-400); Red Blood Count 3.56 MC/CUMM (3.8-5.5); Red Cell Distribution Width 16.1 % (9.3-17.3); White Blood Count 8.5 T/CUMM (4-12)
[2019-07-28] MEDS: BRIMONIDINE 0.2% OPH SOLN 5 ML BOTTLE BOTH EYES SCH ×2 (05:04→19:04)
[2019-07-28 05:31] LABS: Free T4 (Free Thyroxine) 1.32 NG/DL (0.76-1.46); Thyroid Stimulating Hormone 2.47 uIU/ml (0.358-3.74)
[2019-07-28 05:40] LABS: Calcium 8.6 MG/DL (8.5-10.1); Osmolality,Calculated 276.1 MOS/KG (273-304)
[2019-07-28] MEDS: CALCIUM ACETATE 667 MG CAPSULE PO SCH ×3 (07:27→17:42)
[2019-07-28] MEDS: SUCRALFATE 1 GM TABLET PO SCH ×4 (07:27→20:48)
[2019-07-28] MEDS: oxyCODONE/ACETAMINOPHEN 5-325 MG TABLET PO PRN ×2 (07:27→13:46)
[2019-07-28] MEDS: OMEGA 3 ACID ETHYL ESTERS 1 GM CAPSULE PO SCH ×3 (08:45→20:48)
[2019-07-28] MEDS: AMIODARONE 200 MG TABLET PO SCH ×2 (08:46→20:48)
[2019-07-28] MEDS: INSULIN REGULAR 100 UNIT/ML SUBCUT SCH ×4 (08:46→21:02)
[2019-07-28] MEDS: MAGNESIUM CHLORIDE 64 MG TABLET PO SCH ×2 (08:46→20:48)
[2019-07-28] MEDS: MULTIVITAMIN (BEROCCA) TABLET PO SCH (08:46)
[2019-07-28] MEDS: BISOPROLOL 5 MG TABLET PO SCH ×2 (08:46→20:49)
[2019-07-28] MEDS: SILVER SULFADIAZINE 1% CREAM 25 GM TUBE TOP SCH (08:47)
[2019-07-28] MEDS: POLYETHYLENE GLYCOL POWDER 17 GM PACK PO SCH (08:47)
[2019-07-28] MEDS: SODIUM HYPOCHLORITE 0.25% IRRIG 473 ML BOTTLE TOP SCH (08:47)
[2019-07-28] MEDS: CEFEPIME 1,000 MG in SYRINGE 1 EACH IV SCH (08:48)
[2019-07-28] MEDS: PANTOPRAZOLE 40 MG VIAL IV SCH ×2 (08:49→20:49)
[2019-07-28] MEDS: FLUTICASONE 50 MCG NASAL SPRAY 16 GM BOTTLE BOTH NARES SCH (09:20)
[2019-07-29] MEDS: BRIMONIDINE 0.2% OPH SOLN 5 ML BOTTLE BOTH EYES SCH ×2 (06:14→18:11)
[2019-07-29] MEDS: SUCRALFATE 1 GM TABLET PO SCH ×4 (08:00→22:14)
[2019-07-29] MEDS: CALCIUM ACETATE 667 MG CAPSULE PO SCH ×3 (08:00→18:10)
[2019-07-29] MEDS ORDERED: SODIUM CHLORIDE 0.9% 250 ML IV SCH (08:00)
[2019-07-29] MEDS: INSULIN REGULAR 100 UNIT/ML SUBCUT SCH ×4 (08:05→20:46)
[2019-07-29 08:09] LABS: Basophils % 0.4 % (0.0-0.8); Eosinophils # 0.2 10*3/uL (0.0-0.87); Hematocrit 30.5 VOL% (35.7-47.0); Hemoglobin 9.7 GM/DL (12.0-16.0); Immature Granulocytes % 0.7 %; Immature Granulocytes Absolute 0.07 #; Lymphocytes # 0.6 10*3/uL (1.4-4.0); Lymphocytes % 6.6 % (21.3-54.2); Mean Corpuscular HGB Conc 31.8 GM/DL (32-36); Mean Corpuscular Volume 88.7 FL (87-102); Mean Platelet Volume 10.6 FL (9.6-12.0); Monocytes % 10.2 % (1.7-12.7); Neutrophils % 80.1 % (38.7-73.9); Platelet Count 183 T/CUMM (130-400); Red Blood Count 3.44 MC/CUMM (3.8-5.5); Red Cell Distribution Width 16.9 % (9.3-17.3); White Blood Count 9.4 T/CUMM (4-12)
[2019-07-29 08:32] LABS: Osmolality,Calculated 278.1 MOS/KG (273-304)
[2019-07-29] MEDS: OMEGA 3 ACID ETHYL ESTERS 1 GM CAPSULE PO SCH ×2 (09:00→22:14)
[2019-07-29] MEDS: BISOPROLOL 5 MG TABLET PO SCH ×2 (09:00→22:15)
[2019-07-29] MEDS: POLYETHYLENE GLYCOL POWDER 17 GM PACK PO SCH (09:00)
[2019-07-29] MEDS: MULTIVITAMIN (BEROCCA) TABLET PO SCH (09:00)
[2019-07-29] MEDS: AMIODARONE 200 MG TABLET PO SCH ×2 (09:00→22:14)
[2019-07-29] MEDS: MAGNESIUM CHLORIDE 64 MG TABLET PO SCH ×2 (09:00→22:13)
[2019-07-29] MEDS: MIRTAZAPINE 15 MG TABLET PO SCH (09:00)
[2019-07-29] MEDS ORDERED: LIDOCAINE 2% 5 ML VIAL ONE (10:00)
[2019-07-29] MEDS: PANTOPRAZOLE 40 MG VIAL IV SCH ×2 (10:00→22:13)
[2019-07-29] MEDS ORDERED: PROPOFOL 200 MG/20 ML VIAL IV ONE (10:00)
[2019-07-29] MEDS: FLUTICASONE 50 MCG NASAL SPRAY 16 GM BOTTLE BOTH NARES SCH (10:30)
[2019-07-29] MEDS: oxyCODONE/ACETAMINOPHEN 5-325 MG TABLET PO PRN ×2 (16:07→22:14)
[2019-07-29] MEDS: SILVER SULFADIAZINE 1% CREAM 25 GM TUBE TOP SCH (16:15)
[2019-07-29] MEDS: SODIUM HYPOCHLORITE 0.25% IRRIG 473 ML BOTTLE TOP SCH (16:15)
[2019-07-30] MEDS: BRIMONIDINE 0.2% OPH SOLN 5 ML BOTTLE BOTH EYES SCH (05:24)
[2019-07-30] MEDS: oxyCODONE/ACETAMINOPHEN 5-325 MG TABLET PO PRN (06:01)
[2019-07-30] MEDS: POLYETHYLENE GLYCOL POWDER 17 GM PACK PO SCH (10:00)
[2019-07-30] MEDS: OMEGA 3 ACID ETHYL ESTERS 1 GM CAPSULE PO SCH (10:01)
[2019-07-30] MEDS: MAGNESIUM CHLORIDE 64 MG TABLET PO SCH (10:06)
[2019-07-30] MEDS: AMIODARONE 200 MG TABLET PO SCH (10:06)
[2019-07-30] MEDS: MULTIVITAMIN (BEROCCA) TABLET PO SCH (10:07)
[2019-07-30] MEDS: BISOPROLOL 5 MG TABLET PO SCH (10:07)
[2019-07-30] MEDS: INSULIN REGULAR 100 UNIT/ML SUBCUT SCH ×2 (10:08→12:40)
[2019-07-30] MEDS: SUCRALFATE 1 GM TABLET PO SCH ×2 (10:08→12:46)
[2019-07-30] MEDS: CALCIUM ACETATE 667 MG CAPSULE PO SCH ×2 (10:08→12:46)
[2019-07-30] MEDS: PANTOPRAZOLE 40 MG VIAL IV SCH (10:10)
[2019-07-30] MEDS: SODIUM HYPOCHLORITE 0.25% IRRIG 473 ML BOTTLE TOP SCH (10:13)
[2019-07-30] MEDS: FLUTICASONE 50 MCG NASAL SPRAY 16 GM BOTTLE BOTH NARES SCH (10:15)
[2019-07-30] MEDS: SILVER SULFADIAZINE 1% CREAM 25 GM TUBE TOP SCH (10:15)
[2019-07-30 12:32] VITALS: BP 138/75
== END 2019-07-30 13:23 | DRG 239 ==
LOC: N.ED 16:06 → SUATTDRO 22:11 → N.EDINP 22:11 → N.TELEN 22:34 → N.ICU 07-20 09:29 → N.2E 07-24 16:07 → N.TELEN 07-25 12:02
PROVIDERS: ADMIT Hospitalist; ATTEND Hospitalist

== ENCOUNTER 2019-08-31 11:49 | Inpatient (IN) ==
[2019-08-31] MEDS ORDERED: DEXTROSE 10% 250 ML BAG IV PRN (17:20)
[2019-08-31] MEDS: SODIUM CHLORIDE 0.9% 1,000 ML IV SCH (19:02)
[2019-08-31 19:30] LABS: Basophils % 0.3 % (0.0-0.8); Eosinophils % 0.2 % (0.00-10.9); Hemoglobin 8.1 GM/DL (12.0-16.0); Immature Granulocytes % 0.6 %; Immature Granulocytes Absolute 0.07 #; Lymphocytes # 0.5 10*3/uL (1.4-4.0); Lymphocytes % 4.2 % (21.3-54.2); Mean Corpuscular Volume 88.5 FL (87-102); Mean Platelet Volume 10.5 FL (9.6-12.0); Monocytes % 7.7 % (1.7-12.7); Platelet Count 184 T/CUMM (130-400); Red Blood Count 3.05 MC/CUMM (3.8-5.5); Red Cell Distribution Width 16.3 % (9.3-17.3); White Blood Count 11.8 T/CUMM (4-12)
[2019-08-31 19:56] LABS: Alanine Aminotransferase < 6 U/L (13-56); Albumin 1.7 G/DL (3.4-5.0); Alkaline Phosphatase 85 U/L (45-117); Aspartate Amino Transferase 10 U/L (0-37); Blood Urea Nitrogen 19 MG/DL (7-18); Calcium 9.4 MG/DL (8.5-10.1); Estimated Glom Filtration Rate 18 ML/MIN; Glucose 86 MG/DL (74-106); Osmolality,Calculated 273.8 MOS/KG (273-304)
[2019-08-31] MEDS ORDERED: traMADol 50 MG TABLET PO PRN (20:14)
[2019-08-31 20:15] LABS: Anisocytosis 2+; Lymphocytes 2 % (20-55); Macrocytosis 2+; Microcytosis 1+; Platelet Estimate Normal; Segmented Neutrophils 94 % (50-85); Total Cells Counted 100
[2019-08-31] MEDS: INSULIN LISPRO 100 UNIT/ML SUBCUT SCH (21:05)
[2019-09-01 05:17] LABS: Basophils % 0.3 % (0.0-0.8); Eosinophils # 0.1 10*3/uL (0.0-0.87); Hematocrit 24.8 VOL% (35.7-47.0); Hemoglobin 7.7 GM/DL (12.0-16.0); Immature Granulocytes % 0.5 %; Immature Granulocytes Absolute 0.06 #; Lymphocytes # 0.8 10*3/uL (1.4-4.0); Lymphocytes % 6.7 % (21.3-54.2); Mean Corpuscular Volume 88.3 FL (87-102); Mean Platelet Volume 11.4 FL (9.6-12.0); Monocytes % 10.3 % (1.7-12.7); Neutrophils % 81.2 % (38.7-73.9); Platelet Count 183 T/CUMM (130-400); Red Blood Count 2.81 MC/CUMM (3.8-5.5); Red Cell Distribution Width 16.3 % (9.3-17.3); White Blood Count 11.5 T/CUMM (4-12)
[2019-09-01 05:41] LABS: Alanine Aminotransferase < 9 U/L (13-56); Albumin 1.6 G/DL (3.4-5.0); Alkaline Phosphatase 85 U/L (45-117); Aspartate Amino Transferase 9 U/L (0-37); Blood Urea Nitrogen 21 MG/DL (7-18); Calcium 9.5 MG/DL (8.5-10.1); Estimated Glom Filtration Rate 17 ML/MIN; Glucose 73 MG/DL (74-106); HDL Cholesterol 50 MG/DL (40-60); Osmolality,Calculated 278.5 MOS/KG (273-304); Risk Ratio 1.76; Total Protein 5.8 G/DL (6.4-8.3); Triglycerides 94 MG/DL (2-150); VLDL CHOLESTEROL 18.8 MG/DL
[2019-09-01] MEDS: INSULIN LISPRO 100 UNIT/ML SUBCUT SCH ×4 (07:26→21:23)
[2019-09-01] MEDS: GLUCAGON 1 MG VIAL IM PRN ×2 (07:38→11:13)
[2019-09-01] MEDS: SODIUM CHLORIDE 0.9% 1,000 ML IV SCH (08:29)
[2019-09-01] MEDS: traMADol 50 MG TABLET PO PRN (08:31)
[2019-09-01] MEDS ORDERED: PANTOPRAZOLE 40 MG TABLET PO SCH (09:00)
[2019-09-01] MEDS ORDERED: VANCOMYCIN INJ 1,000 MG in SODIUM CHLORIDE 0.9% 250 ML IV ONE (09:55)
[2019-09-01] MEDS ORDERED: GLUCAGON 1 MG VIAL IM PRN ×2 (10:03→16:46)
[2019-09-01] MEDS ORDERED: PROCHLORPERAZINE 5 MG TABLET PO PRN (10:03)
[2019-09-01] MEDS ORDERED: MORPHINE 4 MG/1 ML VIAL IV PRN ×2 (10:10)
[2019-09-01] MEDS: BISOPROLOL 5 MG TABLET PO SCH ×2 (10:58→21:23)
[2019-09-01] MEDS: FLUTICASONE 50 MCG NASAL SPRAY 16 GM BOTTLE BOTH NARES SCH (11:00)
[2019-09-01] MEDS: POLYETHYLENE GLYCOL POWDER 17 GM PACK PO SCH (11:00)
[2019-09-01] MEDS: SUCRALFATE 1 GM TABLET PO SCH ×3 (11:30→21:23)
[2019-09-01] MEDS ORDERED: VANCOMYCIN 1,000 MG VIAL ONE (12:22)
[2019-09-01] MEDS ORDERED: PROPOFOL 200 MG/20 ML VIAL IV ONE (13:17)
[2019-09-01] MEDS ORDERED: fentaNYL 100 MCG/2 ML VIAL ONE (13:17)
[2019-09-01] MEDS ORDERED: PHENYLEPHRINE 1 MG/10 ML SYRINGE IV ONE (13:17)
[2019-09-01] MEDS ORDERED: SEVOFLURANE 1 UNIT/15 MINUTE INH ONE (13:17)
[2019-09-01] MEDS ORDERED: DEXTROSE 50% 25 GM/50 ML VIAL IV PRN (16:46)
[2019-09-01] MEDS: PANTOPRAZOLE 40 MG TABLET PO SCH (19:14)
[2019-09-01] MEDS: BRIMONIDINE 0.2% OPH SOLN 5 ML BOTTLE BOTH EYES SCH (19:17)
[2019-09-02] MEDS: traMADol 50 MG TABLET PO PRN ×2 (02:36→21:32)
[2019-09-02] MEDS: HYDROXYCHLOROQUINE 200 MG TABLET PO SCH (06:01)
[2019-09-02] MEDS: BRIMONIDINE 0.2% OPH SOLN 5 ML BOTTLE BOTH EYES SCH ×2 (06:01→21:37)
[2019-09-02] MEDS: PANTOPRAZOLE 40 MG TABLET PO SCH ×2 (06:01→21:27)
[2019-09-02 06:03] LABS: Basophils % 0.2 % (0.0-0.8); Eosinophils # 0.1 10*3/uL (0.0-0.87); Eosinophils % 1.4 % (0.00-10.9); Hematocrit 28.3 VOL% (35.7-47.0); Hemoglobin 8.3 GM/DL (12.0-16.0); Immature Granulocytes % 0.5 %; Immature Granulocytes Absolute 0.04 #; Lymphocytes # 0.7 10*3/uL (1.4-4.0); Mean Corpuscular HGB Conc 29.3 GM/DL (32-36); Mean Corpuscular Volume 93.1 FL (87-102); Mean Platelet Volume 11.3 FL (9.6-12.0); Monocytes % 14.2 % (1.7-12.7); Neutrophils % 75.7 % (38.7-73.9); Platelet Count 143 T/CUMM (130-400); Red Blood Count 3.04 MC/CUMM (3.8-5.5); Red Cell Distribution Width 16.8 % (9.3-17.3); White Blood Count 8.1 T/CUMM (4-12)
[2019-09-02 06:34] LABS: Alanine Aminotransferase < 9 U/L (13-56); Albumin 1.3 G/DL (3.4-5.0); Alkaline Phosphatase 78 U/L (45-117); Aspartate Amino Transferase 13 U/L (0-37); Bilirubin,Total < 0.39 MG/DL (0.2-1.0); Blood Urea Nitrogen 28 MG/DL (7-18); Calcium 9.3 MG/DL (8.5-10.1); Estimated Glom Filtration Rate 14 ML/MIN; Glucose 99 MG/DL (74-106); Osmolality,Calculated 275.1 MOS/KG (273-304); Total Protein 5.4 G/DL (6.4-8.3)
[2019-09-02] MEDS: INSULIN LISPRO 100 UNIT/ML SUBCUT SCH ×4 (07:06→21:36)
[2019-09-02] MEDS: SUCRALFATE 1 GM TABLET PO SCH ×4 (08:18→21:27)
[2019-09-02] MEDS: FLUTICASONE 50 MCG NASAL SPRAY 16 GM BOTTLE BOTH NARES SCH (08:20)
[2019-09-02] MEDS: BISOPROLOL 5 MG TABLET PO SCH ×2 (12:30→21:26)
[2019-09-02] MEDS: AMIODARONE 200 MG TABLET PO SCH (12:48)
[2019-09-02] MEDS: POLYETHYLENE GLYCOL POWDER 17 GM PACK PO SCH (12:49)
[2019-09-02] MEDS: GLUCAGON 1 MG VIAL IM PRN (15:12)
[2019-09-02] MEDS ORDERED: HEPARIN 10,000 UNIT/10 ML VIAL IV SCH (15:30)
[2019-09-03] MEDS: BRIMONIDINE 0.2% OPH SOLN 5 ML BOTTLE BOTH EYES SCH ×2 (06:11→17:18)
[2019-09-03] MEDS: HYDROXYCHLOROQUINE 200 MG TABLET PO SCH (06:12)
[2019-09-03] MEDS: PANTOPRAZOLE 40 MG TABLET PO SCH ×2 (06:56→18:57)
[2019-09-03] MEDS: SUCRALFATE 1 GM TABLET PO SCH ×4 (06:56→21:36)
[2019-09-03] MEDS: INSULIN LISPRO 100 UNIT/ML SUBCUT SCH ×4 (07:30→21:35)
[2019-09-03] MEDS: AMIODARONE 200 MG TABLET PO SCH (08:01)
[2019-09-03] MEDS: POLYETHYLENE GLYCOL POWDER 17 GM PACK PO SCH (08:01)
[2019-09-03] MEDS: BISOPROLOL 5 MG TABLET PO SCH ×2 (08:01→21:36)
[2019-09-03] MEDS: FLUTICASONE 50 MCG NASAL SPRAY 16 GM BOTTLE BOTH NARES SCH (08:01)
[2019-09-03] MEDS: MIRTAZAPINE 15 MG TABLET PO SCH (08:03)
[2019-09-04] MEDS: oxyCODONE/ACETAMINOPHEN 5-325 MG TABLET PO PRN ×3 (01:36→19:23)
[2019-09-04] MEDS: HYDROXYCHLOROQUINE 200 MG TABLET PO SCH (06:11)
[2019-09-04] MEDS: PANTOPRAZOLE 40 MG TABLET PO SCH ×2 (06:11→18:29)
[2019-09-04] MEDS: BRIMONIDINE 0.2% OPH SOLN 5 ML BOTTLE BOTH EYES SCH ×2 (06:11→17:09)
[2019-09-04] MEDS: AMIODARONE 200 MG TABLET PO SCH (08:32)
[2019-09-04] MEDS: INSULIN LISPRO 100 UNIT/ML SUBCUT SCH ×2 (08:32→10:43)
[2019-09-04] MEDS: FLUTICASONE 50 MCG NASAL SPRAY 16 GM BOTTLE BOTH NARES SCH (08:32)
[2019-09-04] MEDS: SUCRALFATE 1 GM TABLET PO SCH ×4 (08:32→20:45)
[2019-09-04] MEDS: POLYETHYLENE GLYCOL POWDER 17 GM PACK PO SCH (08:32)
[2019-09-04] MEDS: BISOPROLOL 5 MG TABLET PO SCH ×2 (08:33→20:45)
[2019-09-04] MEDS: ONDANSETRON 4 MG/2 ML VIAL IV PRN (17:30)
[2019-09-05] MEDS: traMADol 50 MG TABLET PO PRN ×2 (03:49→14:30)
[2019-09-05 05:07] LABS: Basophils % 0.4 % (0.0-0.8); Eosinophils # 0.3 10*3/uL (0.0-0.87); Hematocrit 22.8 VOL% (35.7-47.0); Immature Granulocytes % 0.6 %; Immature Granulocytes Absolute 0.05 #; Lymphocytes % 11.6 % (21.3-54.2); Mean Corpuscular HGB Conc 30.7 GM/DL (32-36); Mean Corpuscular Volume 86.7 FL (87-102); Mean Platelet Volume 11.3 FL (9.6-12.0); Neutrophils % 71.4 % (38.7-73.9); Platelet Count 169 T/CUMM (130-400); Red Blood Count 2.63 MC/CUMM (3.8-5.5); Red Cell Distribution Width 16.4 % (9.3-17.3); White Blood Count 8.5 T/CUMM (4-12)
[2019-09-05 05:35] LABS: Calcium 8.8 MG/DL (8.5-10.1); Osmolality,Calculated 277.5 MOS/KG (273-304)
[2019-09-05] MEDS: HYDROXYCHLOROQUINE 200 MG TABLET PO SCH (06:08)
[2019-09-05] MEDS: PANTOPRAZOLE 40 MG TABLET PO SCH ×2 (06:08→20:59)
[2019-09-05] MEDS: BRIMONIDINE 0.2% OPH SOLN 5 ML BOTTLE BOTH EYES SCH ×2 (06:08→17:19)
[2019-09-05] MEDS: BISOPROLOL 5 MG TABLET PO SCH ×2 (08:32→21:00)
[2019-09-05] MEDS: AMIODARONE 200 MG TABLET PO SCH (08:32)
[2019-09-05] MEDS: SUCRALFATE 1 GM TABLET PO SCH ×4 (08:33→21:00)
[2019-09-05] MEDS: FLUTICASONE 50 MCG NASAL SPRAY 16 GM BOTTLE BOTH NARES SCH (08:33)
[2019-09-05] MEDS: MIRTAZAPINE 15 MG TABLET PO SCH (08:33)
[2019-09-05] MEDS: POLYETHYLENE GLYCOL POWDER 17 GM PACK PO SCH (08:33)
[2019-09-05] MEDS: oxyCODONE/ACETAMINOPHEN 5-325 MG TABLET PO PRN (09:04)
[2019-09-05] MEDS ORDERED: EPOETIN ALFA 10,000 UNIT/1 ML VIAL IV PRN (09:18)
[2019-09-05] MEDS: BISACODYL 5 MG TABLET PO PRN (17:55)
[2019-09-06 04:40] LABS: Hematocrit 22.2 VOL% (35.7-47.0); Hemoglobin 6.8 GM/DL (12.0-16.0)
[2019-09-06] MEDS: HYDROXYCHLOROQUINE 200 MG TABLET PO SCH (07:05)
[2019-09-06] MEDS: BRIMONIDINE 0.2% OPH SOLN 5 ML BOTTLE BOTH EYES SCH ×2 (07:05→17:00)
[2019-09-06] MEDS: PANTOPRAZOLE 40 MG TABLET PO SCH ×2 (07:05→18:05)
[2019-09-06] MEDS: BISOPROLOL 5 MG TABLET PO SCH ×2 (08:55→21:12)
[2019-09-06] MEDS: AMIODARONE 200 MG TABLET PO SCH (08:55)
[2019-09-06] MEDS: oxyCODONE/ACETAMINOPHEN 5-325 MG TABLET PO PRN ×2 (08:55→16:59)
[2019-09-06] MEDS: SUCRALFATE 1 GM TABLET PO SCH ×4 (08:55→21:12)
[2019-09-06] MEDS: POLYETHYLENE GLYCOL POWDER 17 GM PACK PO SCH (08:56)
[2019-09-06] MEDS: FLUTICASONE 50 MCG NASAL SPRAY 16 GM BOTTLE BOTH NARES SCH (08:56)
[2019-09-06] MEDS: BISACODYL 5 MG TABLET PO PRN (16:59)
[2019-09-06] MEDS: diphenhydrAMINE CAP 25 MG CAPSULE PO PRN (17:00)
[2019-09-06] MEDS: ONDANSETRON 4 MG/2 ML VIAL IV PRN (18:54)
[2019-09-07] MEDS: oxyCODONE/ACETAMINOPHEN 5-325 MG TABLET PO PRN ×2 (01:46→17:13)
[2019-09-07] MEDS: diphenhydrAMINE CAP 25 MG CAPSULE PO PRN (01:46)
[2019-09-07] MEDS: HYDROXYCHLOROQUINE 200 MG TABLET PO SCH (06:32)
[2019-09-07] MEDS: PANTOPRAZOLE 40 MG TABLET PO SCH ×2 (06:32→18:18)
[2019-09-07] MEDS: BRIMONIDINE 0.2% OPH SOLN 5 ML BOTTLE BOTH EYES SCH ×2 (06:33→17:14)
[2019-09-07] MEDS: SUCRALFATE 1 GM TABLET PO SCH ×4 (10:26→21:44)
[2019-09-07] MEDS: POLYETHYLENE GLYCOL POWDER 17 GM PACK PO SCH (10:30)
[2019-09-07] MEDS: FLUTICASONE 50 MCG NASAL SPRAY 16 GM BOTTLE BOTH NARES SCH (10:30)
[2019-09-07] MEDS: BISOPROLOL 5 MG TABLET PO SCH ×2 (10:34→21:44)
[2019-09-07] MEDS: AMIODARONE 200 MG TABLET PO SCH (10:34)
[2019-09-07] MEDS: MIRTAZAPINE 15 MG TABLET PO SCH (10:35)
[2019-09-07] MEDS: GLUCAGON 1 MG VIAL IM PRN (12:55)
[2019-09-08] MEDS: oxyCODONE/ACETAMINOPHEN 5-325 MG TABLET PO PRN (04:37)
[2019-09-08] MEDS: PANTOPRAZOLE 40 MG TABLET PO SCH (06:02)
[2019-09-08] MEDS: BRIMONIDINE 0.2% OPH SOLN 5 ML BOTTLE BOTH EYES SCH (06:03)
[2019-09-08] MEDS: HYDROXYCHLOROQUINE 200 MG TABLET PO SCH (06:04)
[2019-09-08] MEDS: FLUTICASONE 50 MCG NASAL SPRAY 16 GM BOTTLE BOTH NARES SCH (08:03)
[2019-09-08] MEDS: POLYETHYLENE GLYCOL POWDER 17 GM PACK PO SCH (08:03)
[2019-09-08] MEDS: BISOPROLOL 5 MG TABLET PO SCH (08:03)
[2019-09-08] MEDS: AMIODARONE 200 MG TABLET PO SCH (08:03)
[2019-09-08] MEDS: SUCRALFATE 1 GM TABLET PO SCH (08:03)
[2019-09-08 08:05] VITALS: BP 132/49
== END 2019-09-08 07:55 | DRG 239 ==
LOC: N.3E 15:24 → SUATTDRO 15:24 → N.ICU 09-02 12:16 → N.3E 09-02 18:59
PROVIDERS: ADMIT Internal Medicine; ATTEND Internal Medicine

== ENCOUNTER 2019-09-11 09:45 | Inpatient (IN) ==
[2019-09-11] MEDS ORDERED: SODIUM CHLORIDE 0.9% 500 ML IV STA (10:05)
[2019-09-11 10:10] LABS: Basophils % 0.3 % (0.0-0.8); Eosinophils # 0.2 10*3/uL (0.0-0.87); Eosinophils % 1.7 % (0.00-10.9); Hematocrit 23.2 VOL% (35.7-47.0); Hemoglobin 7.1 GM/DL (12.0-16.0); Immature Granulocytes % 0.6 %; Immature Granulocytes Absolute 0.06 #; Lymphocytes # 0.6 10*3/uL (1.4-4.0); Lymphocytes % 5.6 % (21.3-54.2); Mean Corpuscular HGB Conc 30.6 GM/DL (32-36); Mean Corpuscular Volume 88.2 FL (87-102); Monocytes % 8.6 % (1.7-12.7); Neutrophils % 83.2 % (38.7-73.9); Platelet Count 280 T/CUMM (130-400); Red Blood Count 2.63 MC/CUMM (3.8-5.5); Red Cell Distribution Width 16.9 % (9.3-17.3); White Blood Count 10.1 T/CUMM (4-12)
[2019-09-11 10:22] LABS: PT Patient Result 11.3 SECS (9.6-12.2)
[2019-09-11 10:28] LABS: Alanine Aminotransferase < 9 U/L (13-56); Albumin 1.4 G/DL (3.4-5.0); Alkaline Phosphatase 110 U/L (45-117); Aspartate Amino Transferase 11 U/L (0-37); Bilirubin,Total < 0.39 MG/DL (0.2-1.0); Blood Urea Nitrogen 8 MG/DL (7-18); Calcium 8.4 MG/DL (8.5-10.1); Estimated Glom Filtration Rate 41 ML/MIN; Glucose 214 MG/DL (74-106); Osmolality,Calculated 278.7 MOS/KG (273-304); Total Protein 5.6 G/DL (6.4-8.3)
[2019-09-11 10:30] LABS: ABG Base Excess 9.3 MMOL/L (-2.5-2.5); ABG Oxygen Saturation 99.3 % (95-100); ABG PCO2 44.1 MM HG (35-48); ABG TCO2 31.5 MMOL/L (23-27)
[2019-09-11 10:31] LABS: Troponin I 0.082 NG/ML (0.00-0.045)
[2019-09-11] MEDS ORDERED: MEROPENEM 1,000 MG in SODIUM CHLORIDE 0.9% 100 ML IV ONE (11:26)
[2019-09-11] MEDS ORDERED: VANCOMYCIN INJ 1,000 MG in SODIUM CHLORIDE 0.9% 250 ML IV STA (11:26)
[2019-09-11] MEDS ORDERED: BISACODYL 5 MG TABLET PO PRN (12:56)
[2019-09-11] MEDS ORDERED: SODIUM CHLORIDE 0.9% 1,000 ML IV PRN (13:11)
[2019-09-11] MEDS: oxyCODONE/ACETAMINOPHEN 5-325 MG TABLET PO PRN (14:54)
[2019-09-11] MEDS ORDERED: HEPARIN 10,000 UNIT/10 ML VIAL IV SCH (16:30)
[2019-09-11] MEDS ORDERED: DEXTROSE 50% 25 GM/50 ML VIAL IV PRN (17:49)
[2019-09-11] MEDS ORDERED: GLUCAGON 1 MG VIAL IM PRN (17:49)
[2019-09-11] MEDS: CALCIUM ACETATE 667 MG CAPSULE PO SCH (18:34)
[2019-09-11] MEDS: SUCRALFATE 1 GM TABLET PO SCH ×2 (18:34→21:04)
[2019-09-11] MEDS: MAGNESIUM CHLORIDE 64 MG TABLET PO SCH (21:03)
[2019-09-11] MEDS: traMADol 50 MG TABLET PO SCH (21:03)
[2019-09-11] MEDS: PANTOPRAZOLE 40 MG TABLET PO SCH (21:03)
[2019-09-11] MEDS: BRIMONIDINE 0.2% OPH SOLN 5 ML BOTTLE BOTH EYES SCH (21:04)
[2019-09-11] MEDS: hydrALAZINE 25 MG TABLET PO SCH (21:04)
[2019-09-11] MEDS: GABAPENTIN 100 MG CAPSULE PO SCH (21:04)
[2019-09-11] MEDS: OMEGA 3 ACID ETHYL ESTERS 1 GM CAPSULE PO SCH (21:04)
[2019-09-11] MEDS: BISOPROLOL 5 MG TABLET PO SCH (21:04)
[2019-09-12] MEDS: oxyCODONE/ACETAMINOPHEN 5-325 MG TABLET PO PRN ×2 (03:33→13:40)
[2019-09-12 05:22] LABS: Basophils % 0.4 % (0.0-0.8); Eosinophils # 0.2 10*3/uL (0.0-0.87); Eosinophils % 2.6 % (0.00-10.9); Immature Granulocytes % 0.4 %; Immature Granulocytes Absolute 0.03 #; Lymphocytes # 0.6 10*3/uL (1.4-4.0); Lymphocytes % 7.2 % (21.3-54.2); Mean Corpuscular HGB Conc 32.9 GM/DL (32-36); Mean Corpuscular Volume 87.2 FL (87-102); Mean Platelet Volume 11.3 FL (9.6-12.0); Monocytes % 10.4 % (1.7-12.7); Red Cell Distribution Width 16.4 % (9.3-17.3); White Blood Count 7.8 T/CUMM (4-12)
[2019-09-12 05:32] LABS: Red Blood Count 3.21 MC/CUMM (3.8-5.5)
[2019-09-12 05:33] LABS: Hemoglobin 9.2 GM/DL (12.0-16.0); Platelet Count 196 T/CUMM (130-400)
[2019-09-12] MEDS ORDERED: VITAMIN B COMPLEX PO SCH (09:00)
[2019-09-12] MEDS: SUCRALFATE 1 GM TABLET PO SCH ×4 (09:12→21:47)
[2019-09-12] MEDS: CALCIUM ACETATE 667 MG CAPSULE PO SCH ×3 (09:12→17:08)
[2019-09-12] MEDS: hydrALAZINE 25 MG TABLET PO SCH ×2 (09:13→21:56)
[2019-09-12] MEDS: BRIMONIDINE 0.2% OPH SOLN 5 ML BOTTLE BOTH EYES SCH ×2 (09:13→21:47)
[2019-09-12] MEDS: AMIODARONE 200 MG TABLET PO SCH (09:14)
[2019-09-12] MEDS: ASPIRIN CHEW 81 MG TABLET PO SCH (09:14)
[2019-09-12] MEDS: MULTIVITAMIN (BEROCCA) TABLET PO SCH (09:14)
[2019-09-12] MEDS: POLYETHYLENE GLYCOL POWDER 17 GM PACK PO SCH (09:15)
[2019-09-12] MEDS: OMEGA 3 ACID ETHYL ESTERS 1 GM CAPSULE PO SCH ×2 (09:15→21:47)
[2019-09-12] MEDS: FLUTICASONE 50 MCG NASAL SPRAY 16 GM BOTTLE BOTH NARES SCH (09:15)
[2019-09-12] MEDS: PANTOPRAZOLE 40 MG TABLET PO SCH ×2 (09:16→21:48)
[2019-09-12] MEDS: HYDROXYCHLOROQUINE 200 MG TABLET PO SCH (09:16)
[2019-09-12] MEDS: GABAPENTIN 100 MG CAPSULE PO SCH ×2 (09:16→21:55)
[2019-09-12] MEDS: CINACALCET 30 MG TABLET PO SCH (09:16)
[2019-09-12] MEDS: traMADol 50 MG TABLET PO SCH ×2 (09:17→21:47)
[2019-09-12] MEDS: MAGNESIUM CHLORIDE 64 MG TABLET PO SCH ×2 (09:17→21:47)
[2019-09-12] MEDS: BISOPROLOL 5 MG TABLET PO SCH ×2 (09:18→21:47)
[2019-09-12] MEDS: ASCORBIC ACID 500 MG TABLET PO SCH (09:18)
[2019-09-12] MEDS ORDERED: VANCOMYCIN INJ 750 MG in SODIUM CHLORIDE 0.9% 250 ML IV PRN (10:53)
[2019-09-12] MEDS ORDERED: VANCOMYCIN INJ 1,000 MG in SODIUM CHLORIDE 0.9% 250 ML IV ONE (11:00)
[2019-09-12] MEDS ORDERED: MEROPENEM 1,000 MG in SODIUM CHLORIDE 0.9% 100 ML IV SCH (12:00)
[2019-09-12] MEDS: MEROPENEM 1,000 MG in SODIUM CHLORIDE 0.9% 100 ML IV SCH (17:02)
[2019-09-12] MEDS: ONDANSETRON 4 MG TABLET PO PRN (23:20)
[2019-09-13] MEDS: oxyCODONE/ACETAMINOPHEN 5-325 MG TABLET PO PRN (01:56)
[2019-09-13] MEDS: traMADol 50 MG TABLET PO SCH ×2 (08:55→20:43)
[2019-09-13] MEDS: ASPIRIN CHEW 81 MG TABLET PO SCH (08:55)
[2019-09-13] MEDS: MAGNESIUM CHLORIDE 64 MG TABLET PO SCH ×2 (08:55→20:43)
[2019-09-13] MEDS: CINACALCET 30 MG TABLET PO SCH (08:55)
[2019-09-13] MEDS: MULTIVITAMIN (BEROCCA) TABLET PO SCH (08:56)
[2019-09-13] MEDS: PANTOPRAZOLE 40 MG TABLET PO SCH ×2 (08:56→20:43)
[2019-09-13] MEDS: BISOPROLOL 5 MG TABLET PO SCH ×2 (08:56→20:44)
[2019-09-13] MEDS: OMEGA 3 ACID ETHYL ESTERS 1 GM CAPSULE PO SCH ×3 (08:56→20:47)
[2019-09-13] MEDS: GABAPENTIN 100 MG CAPSULE PO SCH ×2 (08:56→20:43)
[2019-09-13] MEDS: CALCIUM ACETATE 667 MG CAPSULE PO SCH ×3 (08:56→17:22)
[2019-09-13] MEDS: ASCORBIC ACID 500 MG TABLET PO SCH (08:56)
[2019-09-13] MEDS: SUCRALFATE 1 GM TABLET PO SCH ×5 (08:56→20:44)
[2019-09-13] MEDS: AMIODARONE 200 MG TABLET PO SCH (08:56)
[2019-09-13] MEDS: HYDROXYCHLOROQUINE 200 MG TABLET PO SCH (08:56)
[2019-09-13] MEDS: hydrALAZINE 25 MG TABLET PO SCH ×2 (08:56→20:44)
[2019-09-13] MEDS: POLYETHYLENE GLYCOL POWDER 17 GM PACK PO SCH (08:57)
[2019-09-13] MEDS: BRIMONIDINE 0.2% OPH SOLN 5 ML BOTTLE BOTH EYES SCH ×2 (08:57→20:43)
[2019-09-13] MEDS: FLUTICASONE 50 MCG NASAL SPRAY 16 GM BOTTLE BOTH NARES SCH (08:57)
[2019-09-13] MEDS: ONDANSETRON 4 MG TABLET PO PRN (11:34)
[2019-09-13] MEDS: MEROPENEM 1,000 MG in SODIUM CHLORIDE 0.9% 100 ML IV SCH (14:40)
[2019-09-13] MEDS ORDERED: GENTAMICIN INJ 180 MG in SODIUM CHLORIDE 0.9% 100 ML IV ONE (15:38)
[2019-09-14] MEDS ORDERED: ALUMINUM/MAGNES/SIMETH MAX STR 30 ML UDCUP PO PRN (04:32)
[2019-09-14] MEDS: CINACALCET 30 MG TABLET PO SCH (08:08)
[2019-09-14] MEDS: SUCRALFATE 1 GM TABLET PO SCH ×2 (08:08→14:14)
[2019-09-14] MEDS: MAGNESIUM CHLORIDE 64 MG TABLET PO SCH (08:08)
[2019-09-14] MEDS: POLYETHYLENE GLYCOL POWDER 17 GM PACK PO SCH (08:08)
[2019-09-14] MEDS: GABAPENTIN 100 MG CAPSULE PO SCH (08:09)
[2019-09-14] MEDS: HYDROXYCHLOROQUINE 200 MG TABLET PO SCH (08:09)
[2019-09-14] MEDS: traMADol 50 MG TABLET PO SCH (08:09)
[2019-09-14] MEDS: ASPIRIN CHEW 81 MG TABLET PO SCH (08:09)
[2019-09-14] MEDS: MULTIVITAMIN (BEROCCA) TABLET PO SCH (08:09)
[2019-09-14] MEDS: hydrALAZINE 25 MG TABLET PO SCH (08:09)
[2019-09-14] MEDS: PANTOPRAZOLE 40 MG TABLET PO SCH (08:09)
[2019-09-14] MEDS: CALCIUM ACETATE 667 MG CAPSULE PO SCH ×2 (08:09→14:14)
[2019-09-14] MEDS: BISOPROLOL 5 MG TABLET PO SCH (08:10)
[2019-09-14] MEDS: OMEGA 3 ACID ETHYL ESTERS 1 GM CAPSULE PO SCH (08:11)
[2019-09-14] MEDS: AMIODARONE 200 MG TABLET PO SCH (08:16)
[2019-09-14] MEDS: ONDANSETRON 4 MG TABLET PO PRN (08:16)
[2019-09-14] MEDS: FLUTICASONE 50 MCG NASAL SPRAY 16 GM BOTTLE BOTH NARES SCH (08:21)
[2019-09-14] MEDS ORDERED: GENTAMICIN INJ 120 MG in PREMIX 1 EACH IV SCH (09:00)
[2019-09-14] MEDS: BRIMONIDINE 0.2% OPH SOLN 5 ML BOTTLE BOTH EYES SCH (14:15)
[2019-09-14] MEDS: ASCORBIC ACID 500 MG TABLET PO SCH (14:17)
[2019-09-14 17:13] VITALS: BP 118/66
[2019-09-14] MEDS: MEROPENEM 1,000 MG in SODIUM CHLORIDE 0.9% 100 ML IV SCH (17:13)
== END 2019-09-14 17:13 | DRG 564 ==
LOC: N.ED 09:45 → N.EDINP 09:45 → N.3E 13:51
PROVIDERS: ADMIT Internal Medicine; ATTEND Internal Medicine

== ENCOUNTER 2019-10-24 20:27 | Inpatient (IN) ==
[2019-10-24] MEDS ORDERED: SODIUM CHLORIDE 0.9% 1,000 ML IV STA (21:50)
[2019-10-24 22:08] LABS: Alanine Aminotransferase 15 U/L (13-56); Albumin 1.2 G/DL (3.4-5.0); Alkaline Phosphatase 91 U/L (45-117); Aspartate Amino Transferase 25 U/L (0-37); Bilirubin,Total < 0.39 MG/DL (0.2-1.0); Blood Urea Nitrogen 13 MG/DL (7-18); Calcium 8.8 MG/DL (8.5-10.1); Estimated Glom Filtration Rate 31 ML/MIN; Total Protein 4.6 G/DL (6.4-8.3)
[2019-10-24 22:12] LABS: Hematocrit 25.6 VOL% (35.7-47.0); Hemoglobin 7.6 GM/DL (12.0-16.0); Lymphocytes # 0.2 10*3/uL (1.4-4.0); Mean Corpuscular HGB Conc 29.7 GM/DL (32-36); Mean Corpuscular Volume 90.1 FL (87-102); Monocytes % 6.4 % (1.7-12.7); NRBC # 0.02 10*3/uL; Neutrophils % 82.6 % (38.7-73.9); Red Cell Distribution Width 18.3 % (9.3-17.3)
[2019-10-24 22:13] LABS: Platelet Count 118 T/CUMM (130-400); Red Blood Count 2.84 MC/CUMM (3.8-5.5); White Blood Count 2.2 T/CUMM (4-12)
[2019-10-24 22:13] LABS: Glucose 45 MG/DL (74-106)
[2019-10-24] MEDS ORDERED: DEXTROSE 50% 25 GM/50 ML SYRINGE IV ONE (22:14)
[2019-10-24 22:21] LABS: Anisocytosis 1+; Band Neutrophils 29 % (0-10); Lymphocytes 10 % (20-55); Metamyelocytes 7 %; Myelocytes 3 %; Poikilocytosis 1+; Promyelocytes 1 %; Segmented Neutrophils 46 % (50-85); Total Cells Counted 100
[2019-10-24 22:22] LABS: Burr Cells 1+; Elliptocytes Few; Hypochromasia 2+; Polychromasia 1+; Schistocytes Few
[2019-10-24] MEDS ORDERED: DEXTROSE 50% 25 GM/50 ML VIAL IV STA (22:22)
[2019-10-24 22:23] LABS: INR 1.2; PT Patient Result 13.3 SECS (9.6-12.2); Partial Thromboplastin Time 36.5 SECS (20.8-36.0); Platelet Estimate Adequate
[2019-10-24] MEDS ORDERED: NOREPINEPHRINE 8 MG in SODIUM CHLORIDE 0.9% 242 ML IV PRN (22:24)
[2019-10-24] MEDS ORDERED: NOREPINEPHRINE 4 MG/4 ML VIAL IV ONE (22:26)
[2019-10-24] MEDS ORDERED: LEVOFLOXACIN INJ 750 MG in PREMIX 1 EACH IV STA (22:39)
[2019-10-24 23:13] LABS: ABG Base Excess 4.5 MMOL/L (-2.5-2.5); ABG HCO3 28.5 MMOL/L (20-26); ABG PCO2 37.2 MM HG (35-48); ABG PH 7.486 (7.35-7.45); ABG TCO2 26.2 MMOL/L (23-27)
[2019-10-24] MEDS ORDERED: PANTOPRAZOLE INJ 200 MG in SODIUM CHLORIDE 0.9% 250 ML IV SCH (23:45)
[2019-10-24] MEDS ORDERED: PANTOPRAZOLE INJ 80 MG in SODIUM CHLORIDE 0.9% 100 ML IV ONE ×2 (23:46→23:48)
[2019-10-25] MEDS ORDERED: DEXTROSE 10% 250 ML BAG IV PRN (00:20)
[2019-10-25] MEDS ORDERED: GLUCAGON 1 MG VIAL IM PRN (00:20)
[2019-10-25] MEDS ORDERED: ACETAMINOPHEN 325 MG TABLET PO PRN (00:20)
[2019-10-25] MEDS ORDERED: ONDANSETRON 4 MG/2 ML VIAL IV PRN (00:20)
[2019-10-25] MEDS ORDERED: ALBUTEROL 2.5 MG/3 ML NEB RESP TX PRN (00:20)
[2019-10-25] MEDS ORDERED: SODIUM CHLORIDE 0.9% 1,000 ML IV STA (00:58)
[2019-10-25] MEDS ORDERED: ETOMIDATE 20 MG/10 ML VIAL IV STA (01:41)
[2019-10-25] MEDS ORDERED: DOPamine 800 MG/250 ML PREMIX IV ONE (01:45)
[2019-10-25] MEDS ORDERED: ROCURONIUM 100 MG/10 ML VIAL IV ONE (02:03)
[2019-10-25] MEDS ORDERED: PROPOFOL 1,000 MG/100 ML BOTTLE IV SCH (02:30)
[2019-10-25] MEDS: MEROPENEM 500 MG in SODIUM CHLORIDE 0.9% 100 ML IV SCH ×2 (02:57→12:21)
[2019-10-25] MEDS ORDERED: PHENYLEPHRINE INJ 80 MG in SODIUM CHLORIDE 0.9% 242 ML IV PRN (03:15)
[2019-10-25] MEDS ORDERED: SODIUM CHLORIDE 0.9% 1,000 ML IV PRN ×2 (03:18→09:42)
[2019-10-25] MEDS ORDERED: NOREPINEPHRINE 16 MG in SODIUM CHLORIDE 0.9% 234 ML IV PRN (03:22)
[2019-10-25] MEDS ORDERED: PHENYLEPHRINE INJ 160 MG in SODIUM CHLORIDE 0.9% 234 ML IV PRN (03:24)
[2019-10-25] MEDS ORDERED: AMIODARONE INJ 450 MG in DEXTROSE 5% 241 ML IV SCH ×2 (03:30→09:30)
[2019-10-25] MEDS ORDERED: PHENYLEPHRINE DRIP 40 MG/250 ML PREMIX IV ONE (03:31)
[2019-10-25 03:33] LABS: ABG Base Excess 5.2 MMOL/L (-2.5-2.5); ABG HCO3 30.2 MMOL/L (20-26); ABG Oxygen Saturation 98.6 % (95-100); ABG PCO2 46.4 MM HG (35-48); ABG PH 7.431 (7.35-7.45); ABG PO2 154.3 MM HG (80-95); ABG TCO2 31.6 MMOL/L (23-27)
[2019-10-25 03:34] LABS: Allen Test Positive; Pt O2 Delivery Device Ventilator
[2019-10-25] MEDS: INSULIN REGULAR 100 UNIT/ML SUBCUT SCH ×3 (05:05→12:22)
[2019-10-25] MEDS: DEXTROSE 50% 25 GM/50 ML VIAL IV PRN ×2 (05:08→05:12)
[2019-10-25] MEDS ORDERED: DEXTROSE 10% 500 ML IV SCH ×2 (05:30)
[2019-10-25 06:31] LABS: ABG Base Excess -10.7 MMOL/L (-2.5-2.5); ABG HCO3 15.9 MMOL/L (20-26); ABG PCO2 23.3 MM HG (35-48); ABG PH 7.371 (7.35-7.45); ABG TCO2 12.6 MMOL/L (23-27)
[2019-10-25] MEDS ORDERED: SODIUM BICARBONATE 50 MEQ/50 ML VIAL IV ONE (08:10)
[2019-10-25] MEDS ORDERED: EPINEPHrine 1 MG/ML VIAL ONE (08:11)
[2019-10-25] MEDS ORDERED: CALCIUM CHLORIDE 1,000 MG/10 ML SYRINGE IV ONE (08:11)
[2019-10-25 08:28] LABS: ABG Base Excess -2.3 MMOL/L (-2.5-2.5); ABG HCO3 22.5 MMOL/L (20-26); ABG Oxygen Saturation 97.3 % (95-100); ABG PH 7.342 (7.35-7.45); ABG PO2 84.9 MM HG (80-95); ABG TCO2 22.2 MMOL/L (23-27)
[2019-10-25 08:29] LABS: Basophils % 0.2 % (0.0-0.8); Hematocrit 23.4 VOL% (35.7-47.0); Hemoglobin 6.7 GM/DL (12.0-16.0); Immature Granulocytes % 0.6 %; Immature Granulocytes Absolute 0.03 #; Lymphocytes # 1.1 10*3/uL (1.4-4.0); Lymphocytes % 22.6 % (21.3-54.2); Mean Corpuscular HGB Conc 28.6 GM/DL (32-36); Mean Corpuscular Volume 94.4 FL (87-102); Mean Platelet Volume 12.2 FL (9.6-12.0); Monocytes % 6.4 % (1.7-12.7); NRBC # 0.43 10*3/uL; Neutrophils % 70.2 % (38.7-73.9); Platelet Count 137 T/CUMM (130-400); Red Blood Count 2.48 MC/CUMM (3.8-5.5); Red Cell Distribution Width 18.6 % (9.3-17.3)
[2019-10-25] MEDS ORDERED: SODIUM BICARB INJ 100 MEQ in DEXTROSE 5% 1,000 ML IV SCH (08:30)
[2019-10-25 09:09] LABS: Band Neutrophils 18 % (0-10); Hypochromasia 1+; Lymphocytes 30 % (20-55); Myelocytes 7 %; Nucleated Red Blood Cells 11 (0-5); Ovalocytes Slight; Platelet Estimate Adequate; Segmented Neutrophils 36 % (50-85); Total Cells Counted 100
[2019-10-25 09:41] LABS: Albumin 0.8 G/DL (3.4-5.0); Bilirubin,Total 0.7 MG/DL (0.2-1.0); Osmolality,Calculated 281.3 MOS/KG (273-304); Total Protein 2.9 G/DL (6.4-8.3)
[2019-10-25] MEDS ORDERED: ALBUMIN 25% 25 GM in PREMIX 1 EACH IV SCH (10:00)
[2019-10-25] MEDS ORDERED: BRIMONIDINE 0.2% OPH SOLN 5 ML BOTTLE BOTH EYES SCH (10:00)
[2019-10-25] MEDS ORDERED: VANCOMYCIN INJ 1,000 MG in SODIUM CHLORIDE 0.9% 250 ML IV SCH (10:00)
[2019-10-25] MEDS ORDERED: HYDROCORTISONE 100 MG VIAL IV SCH (10:00)
[2019-10-25 11:17] VITALS: BP 63/43
== END 2019-10-25 10:16 | disposition expired | DRG 871 ==
LOC: EDUNIT# → EDBD → N.ED 20:27 → N.EDINP 10-25 00:20 → N.CC 10-25 01:26
PROVIDERS: ADMIT Internal Medicine; ATTEND Internal Medicine